=== PATIENT | male | born 1940 | race Caucasian/White ===

== ENCOUNTER → 2020-11-05 17:13 | Outpatient (CLI) | payer MEDICARE, SELFPAY ==
[2020-11-05 17:38] LABS: Basophils % 0.6 % (0.1-2.0); Eosinophils # 0.2 K/mm3 (0.0-0.4); Eosinophils % 4.6 % (0.1-12.0); Hematocrit 43.8 % (42.0-52.0); Hemoglobin 14.4 g/dL (14.1-18.0); Lymphocytes # 1.5 K/mm3 (0.7-4.5); Lymphocytes % 32.7 % (10-50); Mean Corpuscular HGB Conc 32.9 g/dL (31.8-35.4); Mean Corpuscular Hemoglobin 30.3 pg (27.0-31.2); Mean Corpuscular Volume 92.1 fl (80-94); Mean Platelet Volume 10.1 fl (7.4-10.4); Monocytes # 0.3 K/mm3 (0.1-1.0); Monocytes % 6.3 % (1.7-9.3); Neutrophils # 2.5 K/mm3 (1.8-7.8); Neutrophils % 55.8 % (37.0-80.0); Platelet Count 166 K/mm3 (142-424); Red Blood Count 4.75 M/mm3 (4.60-6.20); White Blood Count 4.5 K/mm3 (4.8-10.8)
[2020-11-05 17:47] LABS: Alanine Aminotransferase 38 U/L (12-78); Albumin Level 4.3 g/dl (3.5-5.0); Albumin/Globulin Ratio 1.4 (1.1-1.8); Alkaline Phosphatase 63 U/L (38-126); Anion Gap 10.3 mEq/L (5-15); Aspartate Amino Transferase 42 U/L (17-59); Bilirubin,Total 0.7 mg/dl (0.2-1.3); Blood Urea Nitrogen 18 mg/dl (9-20); Calcium 9.6 mg/dl (8.4-10.2); Carbon Dioxide 28 mmol/L (22.0-30.0); Chloride 101 mmol/L (98-107); Chol/HDL Ratio 3.2 (1-3.5); Cholesterol 146 mg/dl (140-200); Estimated Glomerular Filt Rate 82 ml/min (>60); GFR (African American) 99 ML/MIN (>60); Globulin 3.1 g/dL (1.3-3.2); Glucose 160 mg/dl (74-100); HDL Cholesterol 45 mg/dl (40-60); Potassium 4.3 mmoL/L (3.5-5.1); Sodium 135 mmol/L (136-145); Total Protein,Serum 7.4 g/dl (6.3-8.2); Triglycerides 140 mg/dl (30-150); VLDL Cholesterol 28 mg/dL (0-40)
[2020-11-05 17:58] LABS: Direct LDL Cholesterol 66.37 mg/dL (100-129)
[2020-11-05 18:06] LABS: T4 (Thyroxine) 6.7 ug/dl (5.53-11.0)
[2020-11-05 18:17] LABS: Thyroid Stimulating Hormone 2.57 uIU/mL (0.465-4.68)
[2020-11-05 21:47] LABS: Hemoglobin A1C 8.2 % (4.0-6.0)
[2020-11-07 11:29] LABS: Hep A Ab, IgM Negative (Negative); Hepatitis B Core Antibody IgM Negative (Negative); Hepatitis B Surface Antigen Negative (Negative)
[2020-11-07 12:51] LABS: Hepatitis C Antibody <0.1 s/co ratio (0.0-0.9)
== END ==
PROVIDERS: Visit Provider Family Medicine
DX: E07.9 Disorder of thyroid, unspecified (principal); E11.9 Type 2 dia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s; E78.5 Hyperlipidemia, unspecified; I10 Essential (primary) hypertension; Z20.5 Contact with and (suspected) exposure to viral hepatitis; Z85.46 Personal history of malignant neoplasm of prostate; Z79.84 Long term (current) use of oral hypoglycemic drugs; K74.60 Unspecified cirrhosis of liver
CPT/HCPCS: 80053; 80061; 80074; 83036; 84436; 84443; 85025

== ENCOUNTER → 2020-12-04 08:11 | Outpatient (CLI) | payer MEDICARE, SELFPAY ==
--- NOTE | 2020-12-04 08:16 | US_ITS ---
PROCEDURE: US ABDOMEN LIMITED CLINICAL INDICATION: CIRRHOSIS COMPARISON: No exams were available for comparison FINDINGS: PANCREAS: Pancreas is not well delineated due to overlying bowel gas. CT without and with contrast with pancreatic protocol may provide further evaluation if clinically desired. LIVER: There is heterogeneous echogenicity of the liver. There is appropriate direction of portal and hepatic blood flow. The portal vein is not dilated at 10 mm. There is mild hepatomegaly at 20 cm transverse. Cephalad to caudal measurement of the right hepatic lobe is 19 cm. RIGHT KIDNEY: Unremarkable. Normal size and echogenicity. No hydronephrosis GALLBLADDER: Gallbladder is slightly contracted with mildly thickened wall. No gallstones, pericholecystic fluid, or biliary dilatation is evident. IMPRESSION: 1. Appropriate direction of portal and hepatic blood flow. 2. Enlarged coarse heterogeneous appearance of the liver 3. Mildly thickened gallbladder wall. 4. The pancreas is not well delineated. Dictated by: Michael Evans MD 12/04/2020 17:12 Michael Evans MD in [place] 12/04/2020 17:12
[2020-12-04 09:43] LABS: Basophils # 0.1 K/mm3 (0-0.2); Basophils % 1.2 % (0.1-2.0); Eosinophils # 0.2 K/mm3 (0.0-0.4); Hematocrit 40.8 % (42.0-52.0); Hemoglobin 13.7 g/dL (14.1-18.0); Lymphocytes # 1.4 K/mm3 (0.7-4.5); Lymphocytes % 24.1 % (10-50); Mean Corpuscular HGB Conc 33.5 g/dL (31.8-35.4); Mean Corpuscular Hemoglobin 30.3 pg (27.0-31.2); Mean Corpuscular Volume 90.3 fl (80-94); Mean Platelet Volume 9.5 fl (7.4-10.4); Monocytes # 0.3 K/mm3 (0.1-1.0); Monocytes % 6.1 % (1.7-9.3); Neutrophils # 3.6 K/mm3 (1.8-7.8); Neutrophils % 64.6 % (37.0-80.0); Platelet Count 167 K/mm3 (142-424); Red Blood Count 4.51 M/mm3 (4.60-6.20); Red Cell Distribution Width 13.9 % (11.5-17.5); White Blood Count 5.6 K/mm3 (4.8-10.8)
[2020-12-04 10:01] LABS: INR 1.02 (0.9-1.1)
[2020-12-04 10:29] LABS: Alanine Aminotransferase 34 U/L (12-78); Albumin Level 4.1 g/dl (3.5-5.0); Albumin/Globulin Ratio 1.4 (1.1-1.8); Alkaline Phosphatase 50 U/L (38-126); Anion Gap 9.3 mEq/L (5-15); Aspartate Amino Transferase 34 U/L (17-59); Bilirubin,Total 0.8 mg/dl (0.2-1.3); Blood Urea Nitrogen 21 mg/dl (9-20); Calcium 9.2 mg/dl (8.4-10.2); Carbon Dioxide 30 mmol/L (22.0-30.0); Chloride 102 mmol/L (98-107); Estimated Glomerular Filt Rate 72 ml/min (>60); GFR (African American) 87 ML/MIN (>60); Globulin 2.9 g/dL (1.3-3.2); Glucose 140 mg/dl (74-100); Iron 79 ug/dL (49-181); Potassium 4.3 mmoL/L (3.5-5.1); Sodium 137 mmol/L (136-145)
[2020-12-04 10:42] LABS: Total Iron Binding Capacity 332 ug/dL (261-462)
[2020-12-04 11:04] LABS: Ferritin 89.2 ng/ml (17.9-464)
[2020-12-05 08:15] LABS: AFP, Tumor Marker 5.4 ng/mL (0.0-8.3)
[2020-12-06 02:09] LABS: ALT (SGPT) P5P 36 IU/L (0-55); AST (SGOT) P5P 28 IU/L (0-40); Alpha 2-Macroglobulins, Qn 263 mg/dL (110-276); Apolipoprotein A-1 <3 mg/dL (101-178); Bilirubin, Total 0.6 mg/dL (0.0-1.2); Cholesterol, Total 110 mg/dL (100-199); GGT 70 IU/L (0-65); Glucose 142 mg/dL (65-99); Haptoglobin 139 mg/dL (34-355); Steatosis Score 0.93 (0.00-0.30); Triglycerides 193 mg/dL (0-149)
== END ==
PROVIDERS: PCP Family Medicine; Visit Provider Nurse Practitioner Family
DX: K74.60 Unspecified cirrhosis of liver (principal)
CPT/HCPCS: 36415; 76705; 80053; 82105; 82728; 83540; 83550; 85025; 85610

== ENCOUNTER → 2020-12-09 09:18 | Outpatient (CLI) | payer MEDICARE, SELFPAY ==
[2020-12-09 09:52] LABS: Ammonia < 9 umol/L (9-30)
== END ==
PROVIDERS: Visit Provider Nurse Practitioner Family
DX: I10 Essential (primary) hypertension (principal); E07.9 Disorder of thyroid, unspecified
CPT/HCPCS: 82140

== ENCOUNTER 2021-01-01 10:54 | Emergency (ER) | payer MEDICARE, SELFPAY ==
[2021-01-01 11:06] VITALS: BP 125/63; PULSE 58; RESP 18; TEMP 37.1; O2SAT 96; BMI 38.0
[2021-01-01 11:17] VITALS: BMI 38.0
--- NOTE | 2021-01-01 11:18 | XR_ITS ---
PROCEDURE: XR HIP LT 2-3V W/PELVIS CLINICAL INDICATION: fall COMPARISON: No exams were available for comparison FINDINGS: No fracture or dislocation is evident. No significant degenerative change. No lytic or blastic change. Unremarkable soft tissues. IMPRESSION: No acute findings. Dictated by: Michael Evans MD 01/01/2021 12:52 Michael Evans MD in [facility] 01/01/2021 12:52
--- NOTE | 2021-01-01 11:18 | XR_ITS ---
PROCEDURE: XR CHEST PORTABLE CLINICAL HISTORY: fall Posttraumatic pain COMPARISON: No exams were available for comparison FINDINGS: The cardiomediastinal silhouette and pulmonary vascularity are within normal limits. The lungs are clear without infiltrates, suspicious nodules, or pleural effusions. No acute bony abnormalities. IMPRESSION: No acute findings. Dictated by: Michael Evans MD 01/01/2021 12:51 Michael Evans MD in [facility] 01/01/2021 12:51
[2021-01-01 11:30] VITALS: BP 132/79; PULSE 57; O2SAT 95
[2021-01-01 11:45] VITALS: PULSE 63; O2SAT 97
--- NOTE | 2021-01-01 11:48 | HMH.EDFALL ---
ED Disposition Clinical Impression: Shoulder contusion, Contusion of hip and thigh Disposition: Home, Self-Care Condition on Discharge: Good Additional Instructions: tylenol 500 mg every 6 hours as needed for pain. Follow-up with primary care physician. Prolonged standing and walking for the next 3 days See your primary care physician in 2 days. Prescriptions: Nabumetone 500 mg PO TID 10 Days #30 tab Transmission Status: Pending to Primary [facility] Referrals: Onel Boudreaux MD [Primary Care Provider] - - Critical Care Critical Care Time: No Attestation: On 01/01/21, the high probability of a clinically significant, sudden or life threatening deterioration of the following system(s) required my full and direct attention, intervention and personal management. The time I documented below is in addition to time spent performing reported procedures but includes the following listed in this critical care notation. Medical Decision Making - Medical Records MR Comment: X-ray was done to the chest ribs and left hip all were normal. Rectal exam was completely negative. He denies any chest pain. - Dom Inquiry Pt receiving controlled substance: No Dom was queried for this patient: No Vital Signs: 01/01/21 11:06 01/01/21 11:30 01/01/21 11:45 Temperature 98.7 F Temperature Source Oral Pulse Rate 57 L 63 Pulse Rate [Right] 58 L Respiratory Rate 18 Blood Pressure 132/79 Blood Pressure [Right Arm] 125/63 Blood Pressure Mean 90 Blood Pressure Mean [Right Arm] 83 Blood Pressure Source [Right Arm] Automatic Cuff Blood Pressure Position [Right Arm] Sitting 02 Sat by Pulse Oximetry 96 95 97 Oxygen Delivery Method Room Air Orders (Tests/Meds): ED MEDICATIONS Discontinued Medications Generic Name Dose Route Start Last Admin Trade Name Freq PRN Reason Stop Dose Admin Acetaminophen 500 mg 01/01/21 11:55 01/01/21 11:59 Acetaminophen 500mg Tab PO 01/01/21 11:56 500 mg ONCE ONE Administration Naproxen 500 mg 01/01/21 11:55 01/01/21 11:59 Naproxen 500mg Tablet PO 01/01/21 11:56 500 mg ONCE STA Administration ORDERS Category Date Time Status XR chest portable Stat Exams 01/01/21 11:18 Taken XR hip LT 2-3V w/pelvis Stat Exams 01/01/21 11:18 Taken Fall HPI - General Chief Complaint: Fall Stated Complaint: ao at 0900 possible left broken ribs Time Seen by Provider: 01/01/21 11:30 Mode of Arrival: Ambulatory Source of Information: Patient Limitations: Physical Limitations Description of Symptoms (Recalled from ER Triage Doc. by RN): pt fell approximately 3 feet off of scaffolding landing onto left side of body. denies headstrikes, denies LOC. c/o left sided rib & hip pain. - History of Present Illness HPI Narrative: This 80-year-old male who fell on the left side of his body and is complaining of left rib pain and left hip pain. No chest pain. No shortness of breath. No head injuries or headache. No change in mental status. He denies any abdominal pain. Denies any chest pain. he has Stents in his heart several years ago. MD complaint: fall Onset (ago): hour(s) Fall from: standing Fall witnessed: yes, by family Place fall occurred: home Loss of consciousness: none Prolonged down time: no Symptoms prior to fall: none Context: tripped/slipped Location of injury - extremities: Left: shoulder, thigh Severity: mild Severity scale (1-10): 2 Associated symptoms (after fall): denies - Related Data Home Medications Medication Instructions Recorded Confirmed furosemide 20 mg tablet 20 mg PO DAILY 11/05/20 01/01/21 glipizide 10 mg tablet 10 mg PO DAILY 11/05/20 01/01/21 lactulose 10 gram oral packet 30 g PO DAILY each 11/05/20 01/01/21 levothyroxine 25 mcg capsule 25 mcg PO DAILY 11/05/20 01/01/21 lisinopril 5 mg tablet 5 mg PO DAILY 11/05/20 01/01/21 pantoprazole 40 mg tablet,delayed 40 mg PO BID tab 11/05/20 01/01/21 release At
[2021-01-01 12:20] VITALS: BP 119/72; PULSE 62; RESP 18; TEMP 36.3; O2SAT 96
== END 2021-01-01 12:22 | disposition home or self-care (01) ==
PROVIDERS: Emergency Provider Internal Medicine; PCP Family Medicine
DX: S70.02XA Contusion of left hip, initial encounter (principal); S40.012A Contusion of left shoulder, initial encounter; W17.89XA Other fall from one level to another, initial encounter; Y92.89 Other specified places as the place of occurrence of the external cause; I10 Essential (primary) hypertension; E78.5 Hyperlipidemia, unspecified; K21.9 Gastro-esophageal reflux disease without esophagitis; E03.9 Hypothyroidism, unspecified; E11.9 Type 2 dia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s
CPT/HCPCS: 71045; 73502; 99281; 99282

== ENCOUNTER → 2021-01-10 09:07 | Outpatient (CLI) | payer MEDICARE, SELFPAY ==
--- NOTE | 2021-01-10 09:14 | XR_ITS ---
PROCEDURE: XR SCAPULA LT CLINICAL INDICATION: pain COMPARISON: No exams were available for comparison FINDINGS: No scapular fracture identified. There are mild degenerative changes of the AC joint. Fractures of the left 5th 6th and 7th ribs are noted as described in the rib report. IMPRESSION: Negative scapula. Left-sided rib fractures Dictated by: Michael Evans MD 01/10/2021 09:50 Michael Evans MD in [facility] 01/10/2021 09:50
--- NOTE | 2021-01-10 09:14 | XR_ITS ---
PROCEDURE: XR CHEST 2V CLINICAL HISTORY: pain COMPARISON: CR XR CHEST PORTABLE from 01/01/2021 CR XR RIBS LT 2V from 01/10/2021 FINDINGS: Borderline cardiomegaly. Coronary artery stent noted on the left. No CHF. There is a small left pleural effusion. Mild pleural thickening noted in the right hemithorax laterally. Multiple views of the left ribs are obtained demonstrating minimally displaced fracture of the left 5th and 7th ribs with a nondisplaced fracture of the left 6th rib. No evidence of pneumothorax. IMPRESSION: Left 5th 6th and 7th rib fractures with small left-sided pleural effusion Dictated by: Michael Evans MD 01/10/2021 09:45 Michael Evans MD in [facility] 01/10/2021 09:45
== END ==
PROVIDERS: PCP Family Medicine; Visit Provider Family Medicine
DX: Z09 Encounter for follow-up examination after completed treatment for conditions other than malignant neoplasm (principal); R07.81 Pleurodynia; M79.89 Other specified soft tissue disorders; R60.0 Localized edema
CPT/HCPCS: 71046; 71100; 73010

== ENCOUNTER → 2021-01-24 14:00 | Outpatient (CLI) | payer MEDICARE, SELFPAY ==
[2021-01-24 14:24] LABS: Basophils # 0.1 K/mm3 (0-0.2); Basophils % 1.1 % (0.1-2.0); Eosinophils # 0.2 K/mm3 (0.0-0.4); Hematocrit 39.9 % (42.0-52.0); Hemoglobin 13.3 g/dL (14.1-18.0); Lymphocytes # 1.4 K/mm3 (0.7-4.5); Lymphocytes % 29.4 % (10-50); Mean Corpuscular HGB Conc 33.4 g/dL (31.8-35.4); Mean Corpuscular Hemoglobin 30.4 pg (27.0-31.2); Mean Corpuscular Volume 91.3 fl (80-94); Mean Platelet Volume 10.2 fl (7.4-10.4); Monocytes # 0.3 K/mm3 (0.1-1.0); Monocytes % 6.4 % (1.7-9.3); Neutrophils # 2.7 K/mm3 (1.8-7.8); Neutrophils % 59.1 % (37.0-80.0); Platelet Count 190 K/mm3 (142-424); Red Blood Count 4.38 M/mm3 (4.60-6.20); Red Cell Distribution Width 14.2 % (11.5-17.5); White Blood Count 4.6 K/mm3 (4.8-10.8)
[2021-01-24 15:24] LABS: Hemoglobin A1C 6.4 % (4.0-6.0)
[2021-01-24 18:30] LABS: Alanine Aminotransferase 38 U/L (12-78); Albumin/Globulin Ratio 1.3 (1.1-1.8); Alkaline Phosphatase 83 U/L (38-126); Aspartate Amino Transferase 42 U/L (17-59); Bilirubin,Total 0.6 mg/dl (0.2-1.3); Blood Urea Nitrogen 23 mg/dl (9-20); Calcium 9.1 mg/dl (8.4-10.2); Carbon Dioxide 33 mmol/L (22.0-30.0); Chloride 98 mmol/L (98-107); Chol/HDL Ratio 2.8 (1-3.5); Cholesterol 114 mg/dl (140-200); Estimated Glomerular Filt Rate 65 ml/min (>60); GFR (African American) 78 ML/MIN (>60); Globulin 3.1 g/dL (1.3-3.2); Glucose 111 mg/dl (74-100); HDL Cholesterol 41 mg/dl (40-60); Sodium 140 mmol/L (136-145); Total Protein,Serum 7.1 g/dl (6.3-8.2); Triglycerides 123 mg/dl (30-150); VLDL Cholesterol 25 mg/dL (0-40)
[2021-01-24 19:01] LABS: Prostate Specific Ag Screen < 0.1 ng/ml (0.0-4.0)
== END ==
PROVIDERS: Visit Provider Family Medicine
DX: E11.9 Type 2 dia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s (principal); R60.9 Edema, unspecified; E78.5 Hyperlipidemia, unspecified; Z12.5 Encounter for screening for malignant neoplasm of prostate; I10 Essential (primary) hypertension; Z79.84 Long term (current) use of oral hypoglycemic drugs
CPT/HCPCS: 80053; 80061; 83036; 85025; G0103

== ENCOUNTER → 2021-04-18 12:19 | Outpatient (CLI) | payer MEDICARE, SELFPAY ==
[2021-04-18 12:41] LABS: Ammonia < 9 umol/L (9-30)
[2021-04-18 14:15] LABS: Alanine Aminotransferase 36 U/L (12-78); Albumin/Globulin Ratio 1.3 (1.1-1.8); Alkaline Phosphatase 50 U/L (38-126); Aspartate Amino Transferase 46 U/L (17-59); Bilirubin,Total 0.4 mg/dl (0.2-1.3); Blood Urea Nitrogen 19 mg/dl (9-20); Calcium 9.4 mg/dl (8.4-10.2); Carbon Dioxide 30 mmol/L (22.0-30.0); Chloride 102 mmol/L (98-107); Estimated Glomerular Filt Rate 82 ml/min (>60); GFR (African American) 99 ML/MIN (>60); Glucose 109 mg/dl (74-100); Sodium 141 mmol/L (136-145)
== END ==
PROVIDERS: Visit Provider Family Medicine
DX: E07.9 Disorder of thyroid, unspecified (principal); E11.9 Type 2 dia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s; E78.5 Hyperlipidemia, unspecified; I10 Essential (primary) hypertension; K74.60 Unspecified cirrhosis of liver; R60.9 Edema, unspecified; Z85.46 Personal history of malignant neoplasm of prostate; Z79.84 Long term (current) use of oral hypoglycemic drugs
CPT/HCPCS: 36415; 80053; 82140

== ENCOUNTER → 2021-08-22 08:42 | Outpatient (CLI) | payer MEDICARE, SELFPAY ==
--- NOTE | 2021-08-22 08:51 | US_ITS ---
FINAL REPORT CLINICAL HISTORY: CIRRHOSIS,HEPATIC ENCEPHALOPATHY,H/O ALCOHOL ABUSE FINDINGS: RIGHT UPPER QUADRANT ULTRASOUND: Ultrasound images of right upper quadrant were obtained. Limited images of the pancreas are obscured by bowel gas. There is coarsening hepatic echotexture which would be consistent with history of cirrhosis. There is mild irregularity of the liver contour. Gallbladder sludge is identified. Portal vein has normal directional flow. The common duct measures 4 mm. The right kidney is normal measuring 11.5 cm. IMPRESSION: Gallbladder sludge. Cirrhosis. Reviewed, Interpreted and Dictated by Manjit Champion III, MD Transcribed by Estella Pineda Authenticated by Manjit Champion III, MD on 08/22/2021 10:09:36 AM [facility]
== END ==
PROVIDERS: PCP Family Medicine; Visit Provider Nurse Practitioner Family
DX: K74.60 Unspecified cirrhosis of liver (principal); K75.81 Nonalcoholic steatohepatitis (NASH); K72.90 Hepatic failure, unspecified without coma; F10.11 Alcohol abuse, in remission
CPT/HCPCS: 76705

== ENCOUNTER → 2021-08-28 12:32 | Outpatient (CLI) | payer MEDICARE, SELFPAY ==
[2021-08-28 13:10] LABS: Basophils # 0.1 K/mm3 (0-0.2); Basophils % 1.1 % (0.1-2.0); Eosinophils # 0.2 K/mm3 (0.0-0.4); Eosinophils % 3.9 % (0.1-12.0); Hematocrit 39.7 % (42.0-52.0); Hemoglobin 13.2 g/dL (14.1-18.0); Lymphocytes # 1.5 K/mm3 (0.7-4.5); Lymphocytes % 26.9 % (10-50); Mean Corpuscular HGB Conc 33.3 g/dL (31.8-35.4); Mean Corpuscular Hemoglobin 30.6 pg (27.0-31.2); Mean Platelet Volume 9.5 fl (7.4-10.4); Monocytes # 0.3 K/mm3 (0.1-1.0); Monocytes % 4.8 % (1.7-9.3); Neutrophils # 3.5 K/mm3 (1.8-7.8); Neutrophils % 63.3 % (37.0-80.0); Platelet Count 185 K/mm3 (142-424); Red Blood Count 4.32 M/mm3 (4.60-6.20); Red Cell Distribution Width 13.5 % (11.5-17.5); White Blood Count 5.5 K/mm3 (4.8-10.8)
[2021-08-28 13:14] LABS: Ammonia < 9 umol/L (9-30)
[2021-08-28 13:15] LABS: INR 1.09 (0.9-1.1); Prothrombin Time 12.2 seconds (10.1-12.5)
[2021-08-28 13:24] LABS: Chloride 96 mmol/L (98-107); Sodium 135 mmol/L (136-145)
[2021-08-28 13:26] LABS: Blood Urea Nitrogen 24 mg/dl (9-20); Estimated Glomerular Filt Rate 65 ml/min (>60); GFR (African American) 78 ML/MIN (>60)
[2021-08-28 13:27] LABS: Alanine Aminotransferase 44 U/L (12-78); Albumin/Globulin Ratio 1.4 (1.1-1.8); Alkaline Phosphatase 64 U/L (38-126); Aspartate Amino Transferase 48 U/L (17-59); Bilirubin,Total 0.5 mg/dl (0.2-1.3); Calcium 8.4 mg/dl (8.4-10.2); Carbon Dioxide 31 mmol/L (22.0-30.0); Globulin 2.8 g/dL (1.3-3.2); Glucose 151 mg/dl (74-100); Iron 66 ug/dL (49-181); Total Protein,Serum 6.8 g/dl (6.3-8.2)
[2021-08-28 13:36] LABS: Total Iron Binding Capacity 380 ug/dL (261-462)
[2021-08-28 14:02] LABS: Ferritin 61.9 ng/ml (17.9-464)
[2021-08-29 11:34] LABS: AFP, Tumor Marker 5.1 ng/mL (0.0-8.3)
== END ==
PROVIDERS: Visit Provider Nurse Practitioner Family
DX: K75.81 Nonalcoholic steatohepatitis (NASH) (principal); K74.60 Unspecified cirrhosis of liver; K72.90 Hepatic failure, unspecified without coma; K76.6 Portal hypertension; F10.11 Alcohol abuse, in remission
CPT/HCPCS: 36415; 80053; 82105; 82140; 82728; 83540; 83550; 85025; 85610

== ENCOUNTER → 2021-12-23 12:21 | Outpatient (CLI) | payer MEDICARE, SELFPAY ==
[2021-12-23 13:17] LABS: Ammonia 11 umol/L (9-30)
[2021-12-23 13:27] LABS: Chloride 106 mmol/L (98-107); Potassium 4.7 mmoL/L (3.5-5.1); Sodium 138 mmol/L (136-145)
[2021-12-23 13:29] LABS: Blood Urea Nitrogen 18 mg/dl (9-20); Estimated Glomerular Filt Rate 81 ml/min (>60); GFR (African American) 98 ML/MIN (>60)
[2021-12-23 13:30] LABS: Alanine Aminotransferase 37 U/L (12-78); Albumin Level 3.7 g/dl (3.5-5.0); Albumin/Globulin Ratio 1.2 (1.1-1.8); Alkaline Phosphatase 54 U/L (38-126); Aspartate Amino Transferase 42 U/L (17-59); Bilirubin,Total 0.6 mg/dl (0.2-1.3); Cholesterol 122 mg/dl (140-200); Glucose 187 mg/dl (74-100); Total Protein,Serum 6.7 g/dl (6.3-8.2); Triglycerides 144 mg/dl (30-150); VLDL Cholesterol 29 mg/dL (0-40)
[2021-12-23 13:31] LABS: Calcium 9.4 mg/dl (8.4-10.2); Chol/HDL Ratio 3.4 (1-3.5); HDL Cholesterol 36 mg/dl (40-60)
[2021-12-23 13:35] LABS: Hemoglobin A1C 7.4 % (4.0-6.0)
[2021-12-23 13:41] LABS: Direct LDL Cholesterol 52.22 mg/dL (100-129)
[2021-12-23 14:01] LABS: Thyroid Stimulating Hormone 2.05 uIU/mL (0.465-4.68)
[2021-12-23 15:22] LABS: Anion Gap 8.7 mEq/L (5-15); Carbon Dioxide 28 mmol/L (22.0-30.0)
== END ==
PROVIDERS: PCP Family Medicine; Visit Provider Family Medicine
DX: E11.9 Type 2 dia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s (principal); E78.5 Hyperlipidemia, unspecified; R60.9 Edema, unspecified; Z79.84 Long term (current) use of oral hypoglycemic drugs
CPT/HCPCS: 36415; 80053; 80061; 82140; 83036; 84443

== ENCOUNTER → 2022-02-16 07:43 | Outpatient (CLI) | payer MEDICARE, SELFPAY ==
--- NOTE | 2022-02-16 07:52 | US_ITS ---
FINAL REPORT CLINICAL HISTORY: CIRRHOSIS,PORTAL HYPERTENSION,H/O ALCOHOL ABUSE FINDINGS: Sonographic images of the right upper quadrant were obtained. The pancreas is partially obscured. There is coarse hepatic echotexture which may be due to cirrhosis. The portal vein has normal directional flow. The hepatic veins are patent. There is sludge in the gallbladder with no evidence of stones. There is no evidence of biliary ductal dilatation. The common duct measures 4mm. Limited images of the right kidney are unremarkable. IMPRESSION: Cirrhosis. Sludge in the gallbladder with no evidence of stones. Reviewed, Interpreted and Dictated by Manjit Champion III, MD Transcribed by Shameka Thurman Authenticated and [facility]
== END ==
PROVIDERS: PCP Family Medicine; Referring Provider Nurse Practitioner Family; Visit Provider Nurse Practitioner Family
DX: F10.11 Alcohol abuse, in remission (principal); K75.81 Nonalcoholic steatohepatitis (NASH); K74.60 Unspecified cirrhosis of liver; K72.90 Hepatic failure, unspecified without coma; K76.6 Portal hypertension
CPT/HCPCS: 76705

== ENCOUNTER → 2022-02-26 12:36 | Outpatient (CLI) | payer MEDICARE, SELFPAY ==
[2022-02-26 13:04] LABS: Basophils % 0.9 % (0.1-2.0); Eosinophils # 0.2 K/mm3 (0.0-0.4); Eosinophils % 4.6 % (0.1-12.0); Hematocrit 37.4 % (42.0-52.0); Hemoglobin 11.5 g/dL (14.1-18.0); Lymphocytes # 1.1 K/mm3 (0.7-4.5); Mean Corpuscular HGB Conc 30.9 g/dL (31.8-35.4); Mean Corpuscular Hemoglobin 29.7 pg (27.0-31.2); Mean Corpuscular Volume 96.2 fl (80-94); Mean Platelet Volume 10.6 fl (7.4-10.4); Monocytes # 0.3 K/mm3 (0.1-1.0); Monocytes % 5.8 % (1.7-9.3); Neutrophils % 64.7 % (37.0-80.0); Platelet Count 169 K/mm3 (142-424); Red Blood Count 3.88 M/mm3 (4.60-6.20); Red Cell Distribution Width 14.6 % (11.5-17.5); White Blood Count 4.6 K/mm3 (4.8-10.8)
[2022-02-26 13:11] LABS: Ammonia 33 umol/L (9-30)
[2022-02-26 13:40] LABS: INR 1.07 (0.9-1.1)
[2022-02-26 13:42] LABS: Alanine Aminotransferase 41 U/L (12-78); Albumin Level 3.4 g/dl (3.5-5.0); Albumin/Globulin Ratio 1.2 (1.1-1.8); Alkaline Phosphatase 60 U/L (38-126); Aspartate Amino Transferase 46 U/L (17-59); Blood Urea Nitrogen 12 mg/dl (9-20); Calcium 8.7 mg/dl (8.4-10.2); Carbon Dioxide 25 mmol/L (22.0-30.0); Chloride 106 mmol/L (98-107); Estimated Glomerular Filt Rate 93 ml/min (>60); GFR (African American) 113 ML/MIN (>60); Globulin 2.9 g/dL (1.3-3.2); Glucose 224 mg/dl (74-100); Sodium 137 mmol/L (136-145); Total Protein,Serum 6.3 g/dl (6.3-8.2)
[2022-02-26 13:43] LABS: Bilirubin,Total < 0.1 mg/dl (0.2-1.3)
[2022-02-26 14:48] LABS: Iron 38 ug/dL (49-181)
[2022-02-26 15:24] LABS: Ferritin 38.2 ng/ml (17.9-464)
[2022-02-27 11:16] LABS: AFP, Tumor Marker 5.2 ng/mL (0.0-8.4)
[2022-03-02 08:41] LABS: Total Iron Binding Capacity 342 ug/dL (261-462)
== END ==
PROVIDERS: PCP Family Medicine; Visit Provider Nurse Practitioner Family
DX: K75.81 Nonalcoholic steatohepatitis (NASH) (principal); K74.60 Unspecified cirrhosis of liver; K76.6 Portal hypertension; F10.11 Alcohol abuse, in remission; M25.471 Effusion, right ankle
CPT/HCPCS: 36415; 80053; 82105; 82140; 82728; 83540; 83550; 85025; 85610

== ENCOUNTER → 2022-04-23 11:26 | Outpatient (CLI) | payer MEDICARE, SELFPAY ==
[2022-04-24 11:29] LABS: Occult Blood,Stool Positive (Negative)
[2022-04-24 11:29] LABS: Occult Blood,Stool Negative (Negative)
== END ==
PROVIDERS: PCP Family Medicine; Visit Provider Internal Medicine Gastroenterology
DX: D64.9 Anemia, unspecified (principal)
CPT/HCPCS: 82272; G0328

== ENCOUNTER → 2022-04-24 10:18 | Outpatient (CLI) | payer MEDICARE, SELFPAY ==
[2022-04-24 11:29] LABS: Occult Blood,Stool Negative (Negative)
== END ==
PROVIDERS: Internal Medicine Gastroenterology; PCP Family Medicine; Visit Provider Family Medicine
DX: D64.9 Anemia, unspecified (principal)
CPT/HCPCS: 82272; G0328

== ENCOUNTER → 2022-06-23 10:23 | Outpatient (CLI) | payer MEDICARE, SELFPAY ==
[2022-06-23 14:32] LABS: Alanine Aminotransferase 81 U/L (12-78); Albumin Level 3.8 g/dl (3.5-5.0); Albumin/Globulin Ratio 1.2 (1.1-1.8); Alkaline Phosphatase 69 U/L (38-126); Anion Gap 10.4 mEq/L (5-15); Aspartate Amino Transferase 56 U/L (17-59); Bilirubin,Total 0.5 mg/dl (0.2-1.3); Blood Urea Nitrogen 23 mg/dl (9-20); Calcium 9.9 mg/dl (8.4-10.2); Carbon Dioxide 31 mmol/L (22.0-30.0); Chloride 98 mmol/L (98-107); Estimated Glomerular Filt Rate 93 ml/min (>60); GFR (African American) 113 ML/MIN (>60); Globulin 3.1 g/dL (1.3-3.2); Glucose 126 mg/dl (74-100); Potassium 4.4 mmoL/L (3.5-5.1); Sodium 135 mmol/L (136-145); Total Protein,Serum 6.9 g/dl (6.3-8.2)
[2022-06-23 15:02] LABS: Thyroid Stimulating Hormone 3.25 uIU/mL (0.465-4.68)
== END ==
PROVIDERS: PCP Family Medicine; Visit Provider Family Medicine
DX: I10 Essential (primary) hypertension (principal); E11.9 Type 2 dia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s; Z79.84 Long term (current) use of oral hypoglycemic drugs
CPT/HCPCS: 80053; 84443

== ENCOUNTER 2022-07-14 05:35 | Emergency (ER) | payer MEDICARE, SELFPAY ==
[2022-07-14 05:36] VITALS: BP 152/72; PULSE 88; RESP 20; TEMP 36.7; O2SAT 97; BMI 36.1
[2022-07-14 05:49] VITALS: BMI 36.1
[2022-07-14 05:57] LABS: Microscopic, Urine URINE MICROSCOPIC (MICROSCOPIC)
[2022-07-14 06:06] LABS: Alanine Aminotransferase 44 U/L (12-78); Albumin Level 3.9 g/dl (3.5-5.0); Alkaline Phosphatase 88 U/L (38-126); Amylase 47 U/L (30-110); Aspartate Amino Transferase 52 U/L (17-59); Bilirubin,Total 0.6 mg/dl (0.2-1.3); Blood Urea Nitrogen 12 mg/dl (9-20); Calcium 8.7 mg/dl (8.4-10.2); Carbon Dioxide 31 mmol/L (22.0-30.0); Chloride 100 mmol/L (98-107); Creatinine Clearance Estimated 71 mL/min (50-200); Estimated Glomerular Filt Rate 81 ml/min (>60); GFR (African American) 98 ML/MIN (>60); Glucose 193 mg/dl (74-100); Lipase 87 U/L (23-300); Sodium 137 mmol/L (136-145); Total Protein,Serum 7.9 g/dl (6.3-8.2)
[2022-07-14 06:12] LABS: Basophils # 0.1 K/mm3 (0-0.2); Basophils % 1.4 % (0.1-2.0); C-Reactive Protein 10.3 mg/L (0-4); Eosinophils # 0.2 K/mm3 (0.0-0.4); Eosinophils % 3.6 % (0.1-12.0); Hematocrit 41.2 % (42.0-52.0); Hemoglobin 12.6 g/dL (14.1-18.0); Lymphocytes # 1.3 K/mm3 (0.7-4.5); Lymphocytes % 19.6 % (10-50); Mean Corpuscular HGB Conc 30.5 g/dL (31.8-35.4); Mean Corpuscular Hemoglobin 27.9 pg (27.0-31.2); Mean Corpuscular Volume 91.6 fl (80-94); Mean Platelet Volume 9.2 fl (7.4-10.4); Monocytes # 0.4 K/mm3 (0.1-1.0); Monocytes % 5.7 % (1.7-9.3); Neutrophils # 4.5 K/mm3 (1.8-7.8); Neutrophils % 69.6 % (37.0-80.0); Platelet Count 342 K/mm3 (142-424); Red Cell Distribution Width 15.2 % (11.5-17.5); White Blood Count 6.4 K/mm3 (4.8-10.8)
[2022-07-14 06:18] LABS: NT Pro Brain Natriuretic Pep. 122 pg/mL (0-450)
[2022-07-14 06:21] LABS: Appearance,Urine CLEAR (Clear); Bilirubin,Urine Negative (Negative); Blood, Urine TRACE-I (Negative); Color,Urine YELLOW (Yellow); Glucose,Urine (UA) Negative (Negative); Ketones,Urine Negative (Negative); Leukocyte Esterase,Urine Negative (Negative); Nitrate,Urine Negative (Negative); Protein,Urine Negative (Negative); Urobilinogen,Urine 0.2 EU/dl (0.2)
--- NOTE | 2022-07-14 06:25 | CT_ITS ---
FINAL REPORT TECHNIQUE: Axial CT images were performed from the lung bases through the pubic symphysis. Coronal reformats were submitted and reviewed. This study was performed with techniques to keep radiation doses as low as reasonably achievable (ALARA). Individualized dose reduction techniques using automated exposure control or adjustment of mA and/or kV according to the patient's size were employed. CLINICAL HISTORY: r/o stones, R flank pain, hematuria FINDINGS: Abdomen: There is mild gynecomastia. There is mild bibasilar atelectasis. The liver has an irregular contour consistent with cirrhosis. There is borderline splenomegaly at 12.4 cm. The pancreas is unremarkable. There are several enlarged portal and portacaval lymph nodes that are nonspecific and favored to be reactive. There are no adrenal masses. There is no nephrolithiasis. There is no hydronephrosis. Pelvis: The appendix is not identified. There are no distal ureteral stones. There is bladder wall thickening which is likely inflammatory. There is a small amount of pelvic ascites. There are bilateral fat containing inguinal hernias. A moderate amount of retained stool is present. IMPRESSION: No nephrolithiasis or hydronephrosis. Cirrhosis with borderline splenomegaly. Small amount of pelvic ascites. Moderate retained stool. Reviewed, Interpreted and Dictated by Manjit Champion III, MD Transcribed by Manpreet Stubbs Authenticated and [facility]
[2022-07-14 06:26] LABS: Procalcitonin 0.103 ng/mL (0.0-2.0)
[2022-07-14 06:30] VITALS: BP 159/81; PULSE 67; RESP 20; O2SAT 96
[2022-07-14 06:47] LABS: Bacteria,Urine Trace /lpf; Squamous Epithelial Cell,Urine Occasional #/hpf (0-5)
[2022-07-14 06:55] LABS: Erythrocyte Sedimentation Rate 29 mm/hr (0-20)
[2022-07-14 07:00] VITALS: BP 158/82; PULSE 71; RESP 20; O2SAT 97
[2022-07-14 07:30] VITALS: BP 160/81; PULSE 72; O2SAT 96
--- NOTE | 2022-07-14 07:36 | PC.NURSE ---
ammonia collected and sent to the lab at this time. no needs by pt
[2022-07-14 08:00] VITALS: BP 160/80; PULSE 64; RESP 18; O2SAT 95
[2022-07-14 08:01] LABS: Ammonia < 9 umol/L (9-30)
--- NOTE | 2022-07-14 09:08 | HMH.EDABDPAI ---
Discharge Plan Disposition Patient Disposition: Home, Self-Care Chief Complaint: Abdominal Pain Prescriptions Prescriptions: No Action pioglitazone [Actos] 30 mg tablet 30 mg PO DAILY Qty: 90 3RF atorvastatin 40 mg tablet See Rx Instructions .ROUTE .COMPLEX Qty: 90 3RF Dose Instruction: TAKE 1 TABLET BY MOUTH EVERY DAY Rx Instructions: TAKE 1 TABLET BY MOUTH EVERY DAY glipizide 10 mg tablet 10 mg PO DAILY Qty: 90 2RF lisinopril 5 mg tablet 5 mg PO DAILY Qty: 90 2RF nadolol 20 mg tablet 20 mg PO DAILY Qty: 90 2RF omeprazole 40 mg capsule,delayed release(DR/EC) 40 mg PO BID Qty: 60 0RF potassium chloride 20 mEq tablet extended release 20 meq PO DAILY Qty: 90 2RF lactulose 10 gram packet 30 g PO DAILY Qty: 90 2RF levothyroxine [Synthroid] 25 mcg tablet 25 mcg PO DAILY Qty: 90 3RF (DME) Accu-Chek Jess Plus test strp Strip See Rx Instructions .ROUTE .COMPLEX Qty: 300 0RF Dose Instruction: USE DIRECTED Rx Instructions: USE DIRECTED torsemide 20 mg tablet 20 mg PO DAILY Qty: 90 3RF Rx Instructions: instead of lasix Referrals Follow up/Referrals: Onel Boudreaux MD [Primary Care Provider] - See instructions Clinical Impressions Clinical Impression: Acute right flank pain, Cirrhosis Instructions Patient Instructions: DI for Acute Abdominal Pain Discharge ED Provider: Bonoe Calhoun Abdominal Pain HPI General Chief Complaint: Abdominal Pain Stated Complaint: abdominal pain Time Seen by Provider: 07/14/22 09:08 Mode of Arrival: Family Vehicle Source of Information: Patient, Spouse and Medical Record Limitations: No Limitations Description of Symptoms (Recalled from ER Triage Doc. by RN): Pt c/o R flank pain that began @ noon yesterday (07/13). He reports the pain is worse as he is moving. He denies urinary issues. He has known liver cirrhosis. Pt states I think I have a kidney stone . He denies any hx of stones. History of Present Illness HPI narrative: rt flank pain over the last 2 days - no fever or rash complaint: flank pain Onset (ago): day(s) Consistency: intermittent Location: R flank Severity: moderate Associated symptoms: denies other symptoms Related Data Previous Rx's Medication Instructions Recorded lactulose 10 gram oral packet 30 g PO DAILY Supplement #90 ea 03/05/21 potassium chloride 20 mEq 20 meq PO DAILY . #90 tabs 03/05/21 tablet,extended release atorvastatin 40 mg tablet See Rx Instructions .Route 04/18/21 .COMPLEX #90 tabs glipizide 10 mg tablet 10 mg PO DAILY Diabetes #90 tabs 04/18/21 lisinopril 5 mg tablet 5 mg PO DAILY Hypertension #90 tabs 04/18/21 levothyroxine 25 mcg tablet 25 mcg PO DAILY #90 tabs 04/21/21 (Synthroid) blood sugar diagnostic (Accu-Chek #300 strips 06/11/21 Jess Plus test strips) pioglitazone 30 mg tablet (Actos) 30 mg PO DAILY #90 tabs 12/23/21 torsemide 20 mg tablet 20 mg PO DAILY #90 tabs 12/31/21 nadolol 20 mg tablet 20 mg PO DAILY Hypertension #90 06/23/22 tabs omeprazole 40 mg capsule,delayed 40 mg PO BID #60 caps 06/23/22 release Allergies Allergy/AdvReac Type Severity Reaction Status Date / Time sitagliptin [From ] Allergy yeast Verified 06/23/22 09:[address] [facility] Disclaimer: The information contained in this section may have been updated after the patient was seen, as this information can be updated by other users. Social History Smoking Status: Former smoker alcohol intake: former substance use type: denies use current occupational status: retired Travel in the last 8 weeks: None ROS Obtained: Yes All systems reviewed & no additional complaints except as documented Physical Exam General General appearance: alert Head Head exam: normocephalic Eye Eye exam: Present PERRL and EOMI; Absent scleral icterus ENT ENT exam: Present
[2022-07-14 09:30] VITALS: BP 160/80; PULSE 70; RESP 18; TEMP 36.7; O2SAT 96
== END 2022-07-14 09:31 | disposition home or self-care (01) ==
PROVIDERS: Emergency Provider Emergency Medicine; PCP Family Medicine
DX: R10.9 Unspecified abdominal pain (principal); K74.60 Unspecified cirrhosis of liver; Z87.891 Personal history of nicotine dependence
CPT/HCPCS: 74176; 80053; 81001; 82140; 82150; 83690; 83880; 84145; 85025; 85651; 86140; 96361; 96374; 99285

== ENCOUNTER → 2022-08-31 08:15 | Outpatient (CLI) | payer MEDICARE, SELFPAY ==
--- NOTE | 2022-08-31 08:28 | US_ITS ---
FINAL REPORT TECHNIQUE: Sonographic images of the right upper quadrant were obtained. CLINICAL HISTORY: MANSFIELD, CIRRHOSIS, PORTAL HYPERTENSION, EDEMA COMPARISON: 02/16/2022 FINDINGS: PANCREAS: The tail is obscured the head is normal. LIVER: The liver is coarsened in echotexture. No focal hepatic lesion. No intrahepatic biliary ductal dilatation. GALLBLADDER: No gallstones. No gallbladder wall thickening or pericholecystic fluid. COMMON DUCT: 5 mm. Normal for age. RIGHT KIDNEY: The right kidney measures 10.1 cm. There is no hydronephrosis, mass, or stone. FREE FLUID: None. IMPRESSION: Coarsened echotexture of the liver, cirrhosis is not excluded. Reviewed, Interpreted and Dictated by Angelica Drew MD Transcribed by Tisha Do Authenticated and [facility]
[2022-08-31 10:05] LABS: Basophils # 0.1 K/mm3 (0-0.2); Basophils % 1.4 % (0.1-2.0); Eosinophils # 0.2 K/mm3 (0.0-0.4); Eosinophils % 5.6 % (0.1-12.0); Hematocrit 40.2 % (42.0-52.0); Hemoglobin 12.9 g/dL (14.1-18.0); Lymphocytes % 25.1 % (10-50); Mean Corpuscular HGB Conc 32.1 g/dL (31.8-35.4); Mean Corpuscular Hemoglobin 28.1 pg (27.0-31.2); Mean Corpuscular Volume 87.6 fl (80-94); Mean Platelet Volume 9.5 fl (7.4-10.4); Monocytes # 0.3 K/mm3 (0.1-1.0); Monocytes % 6.8 % (1.7-9.3); Neutrophils # 2.4 K/mm3 (1.8-7.8); Neutrophils % 61.2 % (37.0-80.0); Platelet Count 225 K/mm3 (142-424); Red Blood Count 4.59 M/mm3 (4.60-6.20); Red Cell Distribution Width 15.6 % (11.5-17.5)
[2022-08-31 10:25] LABS: Ammonia < 9 umol/L (9-30)
[2022-08-31 10:27] LABS: INR 1.11 (0.9-1.1); Prothrombin Time 11.9 seconds (10.1-12.5)
[2022-08-31 11:22] LABS: Alanine Aminotransferase 34 U/L (12-78); Albumin/Globulin Ratio 1.3 (1.1-1.8); Alkaline Phosphatase 63 U/L (38-126); Anion Gap 8.4 mEq/L (5-15); Aspartate Amino Transferase 39 U/L (17-59); Bilirubin,Total 0.5 mg/dl (0.2-1.3); Blood Urea Nitrogen 21 mg/dl (9-20); Carbon Dioxide 27 mmol/L (22.0-30.0); Chloride 104 mmol/L (98-107); Estimated Glomerular Filt Rate 81 ml/min (>60); GFR (African American) 98 ML/MIN (>60); Globulin 3.1 g/dL (1.3-3.2); Glucose 189 mg/dl (74-100); Potassium 4.4 mmoL/L (3.5-5.1); Sodium 135 mmol/L (136-145); Total Protein,Serum 7.1 g/dl (6.3-8.2)
[2022-08-31 12:20] LABS: Iron 43 ug/dL (49-181)
[2022-08-31 12:29] LABS: Total Iron Binding Capacity 401 ug/dL (261-462)
[2022-08-31 12:56] LABS: Ferritin 25.6 ng/ml (17.9-464)
[2022-09-01 10:13] LABS: AFP, Tumor Marker 5.9 ng/mL (0.0-8.4)
== END ==
PROVIDERS: PCP Family Medicine; Visit Provider Nurse Practitioner Family
DX: K75.81 Nonalcoholic steatohepatitis (NASH) (principal); K74.60 Unspecified cirrhosis of liver; F10.11 Alcohol abuse, in remission; K76.6 Portal hypertension; M25.471 Effusion, right ankle
CPT/HCPCS: 36415; 76705; 80053; 82105; 82140; 82728; 83540; 83550; 85025; 85610

== ENCOUNTER 2022-10-17 17:58 | Emergency (ER) | payer MEDICARE, SELFPAY ==
--- NOTE | 2022-10-17 18:18 | XR_ITS ---
PROCEDURE INFORMATION: Exam: XR Right Ribs with PA Chest Exam date and time: 10/17/2022 6:18 PM Age: 82 years old Clinical indication: Injury or trauma; Fall; Rib area; Crushing TECHNIQUE: Imaging protocol: Radiologic exam of the right ribs with PA chest. Views: 3 views COMPARISON: CR XR CHEST 2V 01/10/2021 9:16 AM FINDINGS: Lungs: There is stable mild left basilar atelectasis. Right lung is clear. Pleural spaces: Unremarkable. No pleural effusion. No pneumothorax. Heart/Mediastinum: Unremarkable. No cardiomegaly. Bones/joints: Unremarkable. IMPRESSION: No acute rib fracture evident
[2022-10-17 18:19] VITALS: BP 129/62; PULSE 73; RESP 18; O2SAT 93; BMI 36.1
[2022-10-17 18:20] VITALS: BP 129/62; PULSE 73; RESP 18; TEMP 36.7; O2SAT 93; BMI 36.3
--- NOTE | 2022-10-17 19:10 | EXP.UTC ---
Discharge Plan Disposition Patient Disposition: Home, Self-Care Condition: Good Prescriptions Prescriptions: No Action pioglitazone [Actos] 30 mg tablet 30 mg PO DAILY Qty: 90 3RF levofloxacin 500 mg tablet 500 mg PO DAILY 10 Days Qty: 10 0RF atorvastatin 40 mg tablet See Rx Instructions .ROUTE .COMPLEX Qty: 90 3RF Dose Instruction: TAKE 1 TABLET BY MOUTH EVERY DAY Rx Instructions: TAKE 1 TABLET BY MOUTH EVERY DAY glipizide 10 mg tablet 10 mg PO DAILY Qty: 90 2RF lisinopril 5 mg tablet 5 mg PO DAILY Qty: 90 2RF omeprazole 40 mg capsule,delayed release(DR/EC) 40 mg PO BID Qty: 60 0RF potassium chloride 20 mEq tablet extended release 20 meq PO DAILY Qty: 90 2RF lactulose 10 gram packet 30 g PO DAILY Qty: 90 2RF levothyroxine [Synthroid] 25 mcg tablet 25 mcg PO DAILY Qty: 90 3RF (DME) Accu-Chek Jess Plus test strp Strip See Rx Instructions .ROUTE .COMPLEX Qty: 300 0RF Dose Instruction: USE DIRECTED Rx Instructions: USE DIRECTED torsemide 20 mg tablet 20 mg PO DAILY Qty: 90 3RF Rx Instructions: instead of lasix nadolol 20 mg tablet 20 mg PO DAILY Qty: 90 2RF Referrals Follow up/Referrals: Onel Boudreaux MD [Primary Care Provider] - See instructions Clinical Impressions Clinical Impression: Contusion of rib on right side Instructions Patient Instructions: DI for Rib Contusion Discharge ED Provider: Denisse Dey [facility] General Stated complaint: AO 10/17 right upper ribs Mode of Arrival: Ambulatory Source of Information: Patient and Spouse Limitations: No Limitations Time Seen by Provider: 10/17/22 18:57 Description of Symptoms (Recalled from Triage Doc. by RN): PATIENT C/O RIGHT RIB PAIN AFTER FALLING AND HITTING THE GROUND. DENIES ANY OTHER INJURIES HEENT Symptoms (Recalled from RN notes): No Resp Symptoms (Recalled from RN notes): No Skin Symptoms (Recalled from RN notes): No MS Symptoms (Recalled from RN notes): Yes Functional Status (Recalled from RN notes): WNL History of Present Illness Provider Complaint: Pt states that he was cutting a wood stump and fell over the stump on his right side and caused some rib pain. He states that other than scratches he has not had any other issues. Related Data Previous Rx's Medication Instructions Recorded lactulose 10 gram oral packet 30 g PO DAILY Supplement #90 ea 03/05/21 potassium chloride 20 mEq 20 meq PO DAILY . #90 tabs 03/05/21 tablet,extended release atorvastatin 40 mg tablet See Rx Instructions .Route 04/18/21 .COMPLEX #90 tabs glipizide 10 mg tablet 10 mg PO DAILY Diabetes #90 tabs 04/18/21 lisinopril 5 mg tablet 5 mg PO DAILY Hypertension #90 tabs 04/18/21 levothyroxine 25 mcg tablet 25 mcg PO DAILY #90 tabs 04/21/21 (Synthroid) blood sugar diagnostic (Accu-Chek #300 strips 06/11/21 Jess Plus test strips) pioglitazone 30 mg tablet (Actos) 30 mg PO DAILY #90 tabs 12/23/21 torsemide 20 mg tablet 20 mg PO DAILY #90 tabs 12/31/21 omeprazole 40 mg capsule,delayed 40 mg PO BID #60 caps 06/23/22 release levofloxacin 500 mg tablet 500 mg PO DAILY 10 days #10 tabs 07/14/22 nadolol 20 mg tablet 20 mg PO DAILY Hypertension #90 09/25/22 tabs Allergies Allergy/AdvReac Type Severity Reaction Status Date / Time sitagliptin [From Julthien] Allergy yeast Verified 07/14/22 10:13 infections Worker's Comp Is this a Worker's Comp case?: No [facility] Disclaimer: The information contained in this section may have been updated after the patient was seen, as this information can be updated by other users. Social History Smoking Status: Former smoker alcohol intake: former substance use type: denies use current occupational status: retired Travel in the last 8 weeks: None ROS Obtained: Yes All systems reviewed & no additional complaints except as documented Consti
[2022-10-17 19:19] VITALS: BP 129/62; PULSE 73; RESP 18; TEMP 36.7; O2SAT 93
== END 2022-10-17 19:30 | disposition home or self-care (01) ==
PROVIDERS: Emergency Provider Nurse Practitioner Family; PCP Family Medicine
DX: S20.211A Contusion of right front wall of thorax, initial encounter (principal); Z87.891 Personal history of nicotine dependence; W19.XXXA Unspecified fall, initial encounter
CPT/HCPCS: 71101; 99203; 99212; G0463

== ENCOUNTER → 2023-01-01 10:46 | Outpatient (CLI) | payer MEDICARE, SELFPAY ==
[2023-01-01 11:02] LABS: Basophils # 0.1 K/mm3 (0-0.2); Eosinophils # 0.3 K/mm3 (0.0-0.4); Eosinophils % 6.5 % (0.1-12.0); Hemoglobin 13.3 g/dL (14.1-18.0); Lymphocytes # 1.4 K/mm3 (0.7-4.5); Mean Corpuscular HGB Conc 31.7 g/dL (31.8-35.4); Mean Corpuscular Hemoglobin 28.1 pg (27.0-31.2); Mean Corpuscular Volume 88.7 fl (80-94); Mean Platelet Volume 10.1 fl (7.4-10.4); Monocytes # 0.3 K/mm3 (0.1-1.0); Monocytes % 5.9 % (1.7-9.3); Neutrophils % 58.6 % (37.0-80.0); Platelet Count 194 K/mm3 (142-424); Red Blood Count 4.74 M/mm3 (4.60-6.20); Red Cell Distribution Width 14.8 % (11.5-17.5); White Blood Count 5.1 K/mm3 (4.8-10.8)
[2023-01-01 11:16] LABS: Iron 79 ug/dL (49-181)
[2023-01-01 11:25] LABS: Total Iron Binding Capacity 383 ug/dL (261-462)
[2023-01-01 15:20] LABS: Ferritin 38.5 ng/ml (17.9-464)
== END ==
PROVIDERS: PCP Family Medicine; Visit Provider Nurse Practitioner Family
DX: K75.81 Nonalcoholic steatohepatitis (NASH) (principal); D50.9 Iron deficiency anemia, unspecified; K74.60 Unspecified cirrhosis of liver; K76.6 Portal hypertension; F10.11 Alcohol abuse, in remission; K72.90 Hepatic failure, unspecified without coma; R15.2 Fecal urgency
CPT/HCPCS: 36415; 82728; 83540; 83550; 85025

== ENCOUNTER → 2023-02-24 11:02 | Outpatient (CLI) | payer MEDICARE, SELFPAY ==
--- NOTE | 2023-02-24 11:12 | XR_ITS ---
FINAL REPORT CLINICAL HISTORY: chest congestion, cough FINDINGS: TWO-VIEW CHEST The heart size is normal. The mediastinum is normal. The lungs are clear. There is no pneumothorax. IMPRESSION: No acute cardiopulmonary process. Reviewed, Interpreted and Dictated by Matthew Tapia MD Transcribed by Estella Pineda Authenticated and [facility]
[2023-02-24 12:20] LABS: Coronavirus 19, PCR Detected (NotDetected); Influenza A, PCR Not Detected (NotDetected); Influenza B, PCR Not Detected (NotDetected)
== END ==
PROVIDERS: PCP Family Medicine; Visit Provider Internal Medicine
DX: U07.1 COVID-19 (principal)
CPT/HCPCS: 71046; 87636

== ENCOUNTER 2023-03-07 22:30 | Emergency (ER) | payer MEDICARE, SELFPAY ==
[2023-03-07 22:33] VITALS: BP 125/65; PULSE 84; RESP 18; TEMP 36.7; O2SAT 95; BMI 36.1
[2023-03-07 23:00] VITALS: BP 126/64; PULSE 81; O2SAT 92
[2023-03-07 23:30] VITALS: BP 120/69; PULSE 82; O2SAT 94
--- NOTE | 2023-03-07 23:58 | HMH.EDGENADL ---
Discharge Plan Disposition Patient Disposition: Xfer Other Condition: Good Chief Complaint: Eye Problems Prescriptions Prescriptions: No Action atorvastatin 40 mg tablet See Rx Instructions .ROUTE .COMPLEX Qty: 90 3RF Dose Instruction: TAKE 1 TABLET BY MOUTH EVERY DAY Rx Instructions: TAKE 1 TABLET BY MOUTH EVERY DAY glipizide 10 mg tablet 10 mg PO DAILY Qty: 90 2RF lisinopril 5 mg tablet 5 mg PO DAILY Qty: 90 2RF guaifenesin 600 mg tablet extended release 12hr 600 mg PO Q12H PRN (Reason: congestion) Qty: 14 0RF benzonatate 100 mg capsule 100 mg PO TID PRN (Reason: cough) Qty: 20 0RF Rx Instructions: 1-2 capsules as needed for cough potassium chloride 20 mEq tablet extended release 20 meq PO DAILY Qty: 90 2RF (DME) Accu-Chek Jess Plus test strp Strip See Rx Instructions .ROUTE .COMPLEX Qty: 300 0RF Dose Instruction: USE DIRECTED Rx Instructions: USE DIRECTED nadolol 20 mg tablet 20 mg PO DAILY Qty: 90 2RF atorvastatin 40 mg tablet 40 mg PO DAILY torsemide 20 mg tablet See Rx Instructions .ROUTE .COMPLEX Rx Instructions: TAKE 1 TABLET EVERY DAY INSTEAD OF LASIX levothyroxine [Synthroid] 25 mcg tablet 25 mcg PO DAILY Referrals Follow up/Referrals: Onel Boudreaux MD [Primary Care Provider] - See instructions Activity Restrictions/Add. Instructions Additional Instructions/Restrictions: Please proceed immediately to the emergency department for ophthalmologic evaluation. Clinical Impressions Clinical Impression: Herpes zoster ophthalmicus of left eye, Acute loss of vision Stand Alone Forms Stand Alone Forms: Transfer Record - ED Discharge ED Provider: Nesha Casiano General Adult HPI General Chief complaint: Eye Problems Stated complaint: Left eye infected Time Seen by Provider: 03/07/23 23:13 Mode of Arrival: Ambulatory Source of Information: Patient and Spouse Limitations: No Limitations Description of Symptoms (Recalled from ER Triage Doc. by RN): Left eye pain, reddness, and draining. History of Present Illness HPI narrative: 82-year-old male history of [id number] diabetes, hypertension, hyperlipidemia presents with unilateral left eye pain and redness for the last 3 days. He reports that it started slowly, has become more severe. Pain is primarily with light. Denies pruritus. Denies any other associated skin changes. Reports significantly blurry vision. Nothing like this is happened before. No history of glaucoma. No reported fever at home. Because of the holiday weekend he has been unable to get into any eye doctors. Related Data Home Medications Medication Instructions Recorded Confirmed atorvastatin 40 mg tablet 40 mg PO DAILY High Blood Pressure 03/07/23 03/07/23 levothyroxine 25 mcg tablet 25 mcg PO DAILY thyroid 03/07/23 03/07/23 (Synthroid) torsemide 20 mg tablet See Rx Instructions .Route 03/07/23 03/07/23 .COMPLEX High Blood Pressure Previous Rx's Medication Instructions Recorded potassium chloride 20 mEq 20 meq PO DAILY . #90 tabs 03/05/21 tablet,extended release atorvastatin 40 mg tablet See Rx Instructions .Route 04/18/21 .COMPLEX #90 tabs glipizide 10 mg tablet 10 mg PO DAILY Diabetes #90 tabs 04/18/21 lisinopril 5 mg tablet 5 mg PO DAILY Hypertension #90 tabs 04/18/21 blood sugar diagnostic (Accu-Chek #300 strips 06/11/21 Jess Plus test strips) nadolol 20 mg tablet 20 mg PO DAILY Hypertension #90 09/25/22 tabs benzonatate 100 mg capsule 100 mg PO TID PRN cough #20 caps 02/24/23 guaifenesin 600 mg tablet, 600 mg PO Q12H PRN congestion #14 02/24/23 extended release 12 hr tabs Allergies Allergy/AdvReac Type Severity Reaction Status Date / Time sitagliptin [From ] Allergy yeast Verified 02/24/23 09:37 infections [facility] Disclaimer: The information contained in this section may have been updated after t
[2023-03-08] VITALS: BP 122/74; PULSE 75; O2SAT 95
[2023-03-08 00:30] VITALS: BP 114/70; PULSE 68; O2SAT 95
[2023-03-08 01:01] VITALS: BP 95/68; PULSE 66; RESP 18; O2SAT 95
--- NOTE | 2023-03-08 01:34 | PC.NURSE ---
contacting [facility] for a consultation
--- NOTE | 2023-03-08 01:38 | PC.NURSE ---
on phone with dr morales @ [facility]
--- NOTE | 2023-03-08 01:47 | PC.NURSE ---
Rounded on patient, no concerns at this time.
[2023-03-08 02:02] VITALS: BP 146/81; PULSE 75; RESP 22; TEMP 36.6; O2SAT 97
== END 2023-03-08 02:36 | disposition other institution (70) ==
PROVIDERS: Emergency Provider Student in an Organized Health Care Education/Training Program; PCP Family Medicine
DX: B02.39 Other herpes zoster eye disease (principal); E11.9 Type 2 dia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s; I10 Essential (primary) hypertension; E78.5 Hyperlipidemia, unspecified; E07.9 Disorder of thyroid, unspecified; Z85.46 Personal history of malignant neoplasm of prostate; Z87.891 Personal history of nicotine dependence
CPT/HCPCS: 99285

== ENCOUNTER → 2023-03-16 13:17 | Outpatient (CLI) | payer MEDICARE, SELFPAY ==
[2023-03-16 14:14] LABS: Basophils % 0.6 % (0.1-2.0); Eosinophils # 0.3 K/mm3 (0.0-0.4); Eosinophils % 6.2 % (0.1-12.0); Hemoglobin 13.4 g/dL (14.1-18.0); Lymphocytes # 1.4 K/mm3 (0.7-4.5); Lymphocytes % 25.4 % (10-50); Mean Corpuscular HGB Conc 32.7 g/dL (31.8-35.4); Mean Corpuscular Hemoglobin 29.5 pg (27.0-31.2); Mean Corpuscular Volume 90.2 fl (80-94); Mean Platelet Volume 9.9 fl (7.4-10.4); Monocytes # 0.3 K/mm3 (0.1-1.0); Monocytes % 6.3 % (1.7-9.3); Neutrophils # 3.2 K/mm3 (1.8-7.8); Neutrophils % 61.4 % (37.0-80.0); Platelet Count 179 K/mm3 (142-424); Red Blood Count 4.54 M/mm3 (4.60-6.20); Red Cell Distribution Width 14.2 % (11.5-17.5); White Blood Count 5.3 K/mm3 (4.8-10.8)
[2023-03-16 14:26] LABS: Chloride 104 mmol/L (98-107); Potassium 4.1 mmoL/L (3.5-5.1); Sodium 137 mmol/L (136-145)
[2023-03-16 14:29] LABS: Alanine Aminotransferase 35 U/L (12-78); Alkaline Phosphatase 68 U/L (38-126); Anion Gap 11.1 mEq/L (5-15); Aspartate Amino Transferase 42 U/L (17-59); Bilirubin,Total 0.8 mg/dl (0.2-1.3); Blood Urea Nitrogen 13 mg/dl (9-20); Calcium 8.6 mg/dl (8.4-10.2); Carbon Dioxide 26 mmol/L (22.0-30.0); Estimated Glomerular Filt Rate 81 ml/min (>60); GFR (African American) 98 ML/MIN (>60); Glucose 106 mg/dl (74-100); Iron 86 ug/dL (49-181); Total Protein,Serum 7.1 g/dl (6.3-8.2)
[2023-03-16 14:39] LABS: Total Iron Binding Capacity 364 ug/dL (261-462)
[2023-03-16 15:04] LABS: Ferritin 57.3 ng/ml (17.9-464)
[2023-03-16 15:11] LABS: Albumin Level 3.7 g/dl (3.5-5.0); Albumin/Globulin Ratio 1.1 (1.1-1.8); Globulin 3.4 g/dL (1.3-3.2)
== END ==
PROVIDERS: PCP Family Medicine; Visit Provider Nurse Practitioner Family
DX: D50.9 Iron deficiency anemia, unspecified (principal)
CPT/HCPCS: 80053; 82728; 83540; 83550; 85025

== ENCOUNTER → 2023-03-25 23:34 | Outpatient (CLI) | payer MEDICARE, SELFPAY ==
[2023-03-25 19:58] LABS: Alanine Aminotransferase 28 U/L (12-78); Albumin Level 3.9 g/dl (3.5-5.0); Albumin/Globulin Ratio 1.1 (1.1-1.8); Alkaline Phosphatase 59 U/L (38-126); Aspartate Amino Transferase 38 U/L (17-59); Bilirubin,Total 0.4 mg/dl (0.2-1.3); Blood Urea Nitrogen 26 mg/dl (9-20); Calcium 9.4 mg/dl (8.4-10.2); Carbon Dioxide 31 mmol/L (22.0-30.0); Chloride 98 mmol/L (98-107); Estimated Glomerular Filt Rate 64 ml/min (>60); GFR (African American) 78 ML/MIN (>60); Globulin 3.6 g/dL (1.3-3.2); Glucose 142 mg/dl (74-100); Sodium 138 mmol/L (136-145); Total Protein,Serum 7.5 g/dl (6.3-8.2)
[2023-03-25 20:02] LABS: Basophils % 0.7 % (0.1-2.0); Eosinophils # 0.4 K/mm3 (0.0-0.4); Eosinophils % 7.1 % (0.1-12.0); Hematocrit 43.3 % (42.0-52.0); Hemoglobin 13.4 g/dL (14.1-18.0); Lymphocytes # 1.5 K/mm3 (0.7-4.5); Mean Corpuscular HGB Conc 30.9 g/dL (31.8-35.4); Mean Corpuscular Hemoglobin 29.1 pg (27.0-31.2); Mean Corpuscular Volume 94.2 fl (80-94); Mean Platelet Volume 11.7 fl (7.4-10.4); Monocytes # 0.3 K/mm3 (0.1-1.0); Monocytes % 6.6 % (1.7-9.3); Neutrophils % 57.5 % (37.0-80.0); Platelet Count 177 K/mm3 (142-424); Red Cell Distribution Width 14.6 % (11.5-17.5); White Blood Count 5.2 K/mm3 (4.8-10.8)
[2023-03-25 20:24] LABS: Hemoglobin A1C 7.3 % (4.0-6.0)
[2023-03-25 20:29] LABS: Thyroid Stimulating Hormone 2.62 uIU/mL (0.465-4.68)
== END ==
PROVIDERS: PCP Family Medicine; Visit Provider Family Medicine
DX: R09.89 Other specified symptoms and signs involving the circulatory and respiratory systems (principal); M54.9 Dorsalgia, unspecified; E11.9 Type 2 dia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s; I10 Essential (primary) hypertension; Z79.84 Long term (current) use of oral hypoglycemic drugs; Z87.891 Personal history of nicotine dependence
CPT/HCPCS: 80053; 83036; 84443; 85025

== ENCOUNTER → 2023-03-29 08:27 | Outpatient (CLI) | payer MEDICARE, SELFPAY ==
--- NOTE | 2023-03-29 08:34 | US_ITS ---
FINAL REPORT TECHNIQUE: Sonographic images of the right upper quadrant were obtained. CLINICAL HISTORY: HX OF CIRRHOSIS COMPARISON: 08/31/2022 FINDINGS: PANCREAS: The tail of the pancreas is not well visualized secondary to overlying bowel gas. The head of the pancreas appears unremarkable.. LIVER: There is coarse echotexture of the liver parenchyma, compatible with the patient's clinical history of cirrhosis. This is unchanged since the prior ultrasound of August 2022. No focal hepatic lesion. No intrahepatic biliary ductal dilatation. The portal vein is patent with normal directional flow. GALLBLADDER: No gallstones. No gallbladder wall thickening or pericholecystic fluid. COMMON DUCT: 2 mm. Normal for age. RIGHT KIDNEY: The right kidney measures 9.8 cm. There is no hydronephrosis, mass, or stone. FREE FLUID: None. IMPRESSION: Unremarkable ultrasound of the right upper quadrant. Reviewed, Interpreted and Dictated by Angelica Drew MD Transcribed by Merary Fraga Authenticated and . [facility]
== END ==
PROVIDERS: PCP Family Medicine; Visit Provider Nurse Practitioner Family
DX: K75.81 Nonalcoholic steatohepatitis (NASH) (principal); F10.11 Alcohol abuse, in remission; K74.60 Unspecified cirrhosis of liver; K76.6 Portal hypertension; D50.9 Iron deficiency anemia, unspecified
CPT/HCPCS: 93975

== ENCOUNTER → 2023-05-13 23:27 | Outpatient (CLI) | payer MEDICARE, SELFPAY ==
[2023-05-13 21:32] LABS: Basophils % 0.7 % (0.1-2.0); Eosinophils # 0.3 K/mm3 (0.0-0.4); Eosinophils % 4.7 % (0.1-12.0); Hematocrit 40.7 % (42.0-52.0); Hemoglobin 13.8 g/dL (14.1-18.0); Lymphocytes # 1.3 K/mm3 (0.7-4.5); Lymphocytes % 22.5 % (10-50); Mean Corpuscular Hemoglobin 32.1 pg (27.0-31.2); Mean Corpuscular Volume 94.3 fl (80-94); Mean Platelet Volume 11.3 fl (7.4-10.4); Monocytes # 0.4 K/mm3 (0.1-1.0); Monocytes % 7.1 % (1.7-9.3); Neutrophils # 3.7 K/mm3 (1.8-7.8); Neutrophils % 64.9 % (37.0-80.0); Platelet Count 167 K/mm3 (142-424); Red Blood Count 4.32 M/mm3 (4.60-6.20); Red Cell Distribution Width 14.1 % (11.5-17.5); White Blood Count 5.8 K/mm3 (4.8-10.8)
[2023-05-13 21:52] LABS: Alanine Aminotransferase 30 U/L (12-78); Albumin Level 3.7 g/dl (3.5-5.0); Albumin/Globulin Ratio 1.2 (1.1-1.8); Alkaline Phosphatase 56 U/L (38-126); Aspartate Amino Transferase 36 U/L (17-59); Bilirubin,Total 0.5 mg/dl (0.2-1.3); Blood Urea Nitrogen 17 mg/dl (9-20); Calcium 9.1 mg/dl (8.4-10.2); Carbon Dioxide 29 mmol/L (22.0-30.0); Chloride 98 mmol/L (98-107); Chol/HDL Ratio 4.6 (1-3.5); Cholesterol 180 mg/dl (140-200); Estimated Glomerular Filt Rate 81 ml/min (>60); GFR (African American) 98 ML/MIN (>60); Globulin 3.2 g/dL (1.3-3.2); Glucose 164 mg/dl (74-100); HDL Cholesterol 39 mg/dl (40-60); Sodium 135 mmol/L (136-145); Total Protein,Serum 6.9 g/dl (6.3-8.2); Triglycerides 144 mg/dl (30-150); VLDL Cholesterol 29 mg/dL (0-40)
[2023-05-13 22:06] LABS: Direct LDL Cholesterol 103.43 mg/dL (100-129)
[2023-05-13 22:22] LABS: Prostate Specific Ag Screen < 0.1 ng/ml (0.0-4.0)
[2023-05-13 23:48] LABS: Hemoglobin A1C 7.2 % (4.0-6.0)
== END ==
PROVIDERS: PCP Family Medicine; Visit Provider Family Medicine
DX: E11.9 Type 2 dia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s (principal); Z12.5 Encounter for screening for malignant neoplasm of prostate; K62.89 Other specified diseases of anus and rectum; I10 Essential (primary) hypertension; Z79.84 Long term (current) use of oral hypoglycemic drugs; Z79.899 Other long term (current) drug therapy
CPT/HCPCS: 80053; 80061; 83036; 85025; G0103

== ENCOUNTER 2023-09-07 09:29 | Outpatient (CLI) | payer MEDICARE, SELFPAY ==
--- NOTE | 2023-09-07 09:35 | US_ITS ---
FINAL REPORT CLINICAL HISTORY: CIRRHOSIS,PORTAL HYPERTENSION,IRON DEF,[place] COMPARISON: 03/29/2023 FINDINGS: Sonographic images of the right upper quadrant were obtained. The pancreas is partially obscured. The liver has a coarsened echotexture, consistent with the clinical diagnosis of cirrhosis, and unchanged since the prior exam of March. The portal vein reveals normal directional flow, and measures 1.2 cm in greatest diameter, which is within normal limits. No gallstones are visualized, however there is borderline nonspecific gallbladder wall thickening. There is no evidence of biliary ductal dilatation.The common duct measures 3 mm. Limited images of the right kidney are unremarkable. IMPRESSION: Coarsened echotexture of the liver consistent with the clinical diagnosis of cirrhosis, stable. Nonspecific wall thickening of the gallbladder without definite stones or ductal dilatation. Reviewed, Interpreted and Dictated by Manjit Champion III, MD Transcribed by Merary Fraga Authenticated and [facility]
[2023-09-07 10:44] LABS: Basophils # 0.1 K/mm3 (0-0.2); Basophils % 1.4 % (0.1-2.0); Eosinophils # 0.2 K/mm3 (0.0-0.4); Eosinophils % 5.2 % (0.1-12.0); Hematocrit 41.5 % (42.0-52.0); Hemoglobin 13.1 g/dL (14.1-18.0); Lymphocytes # 1.4 K/mm3 (0.7-4.5); Lymphocytes % 29.3 % (10-50); Mean Corpuscular HGB Conc 31.6 g/dL (31.8-35.4); Mean Corpuscular Hemoglobin 30.5 pg (27.0-31.2); Mean Corpuscular Volume 96.6 fl (80-94); Mean Platelet Volume 10.3 fl (7.4-10.4); Monocytes # 0.4 K/mm3 (0.1-1.0); Monocytes % 7.6 % (1.7-9.3); Neutrophils # 2.6 K/mm3 (1.8-7.8); Neutrophils % 56.6 % (37.0-80.0); Platelet Count 163 K/mm3 (142-424); Red Cell Distribution Width 14.1 % (11.5-17.5); White Blood Count 4.6 K/mm3 (4.8-10.8)
[2023-09-07 10:47] LABS: INR 1.12 (0.9-1.1)
[2023-09-07 11:01] LABS: Ammonia < 9 umol/L (9-30)
[2023-09-07 11:02] LABS: Alanine Aminotransferase 33 U/L (12-78); Albumin Level 3.9 g/dl (3.5-5.0); Albumin/Globulin Ratio 1.4 (1.1-1.8); Alkaline Phosphatase 64 U/L (38-126); Anion Gap 10.1 mEq/L (5-15); Aspartate Amino Transferase 38 U/L (17-59); Bilirubin,Total 0.7 mg/dl (0.2-1.3); Blood Urea Nitrogen 17 mg/dl (9-20); Calcium 9.3 mg/dl (8.4-10.2); Carbon Dioxide 29 mmol/L (22.0-30.0); Chloride 101 mmol/L (98-107); Estimated Glomerular Filt Rate 81 ml/min (>60); GFR (African American) 98 ML/MIN (>60); Globulin 2.8 g/dL (1.3-3.2); Glucose 230 mg/dl (74-100); Potassium 4.1 mmoL/L (3.5-5.1); Sodium 136 mmol/L (136-145); Total Protein,Serum 6.7 g/dl (6.3-8.2)
[2023-09-07 12:39] LABS: Iron 75 ug/dL (49-181)
[2023-09-07 15:04] LABS: Total Iron Binding Capacity 374 ug/dL (261-462)
[2023-09-08 08:18] LABS: AFP, Tumor Marker 6.1 ng/mL (0.0-6.4)
== END 2023-09-07 23:59 ==
LOC: RAD 09:30
PROVIDERS: PCP Family Medicine; Visit Provider Nurse Practitioner Family
DX: K75.81 Nonalcoholic steatohepatitis (NASH) (principal); F10.11 Alcohol abuse, in remission; K74.60 Unspecified cirrhosis of liver; K72.90 Hepatic failure, unspecified without coma; K76.6 Portal hypertension; D50.9 Iron deficiency anemia, unspecified
CPT/HCPCS: 36415; 76705; 80053; 82105; 82140; 82728; 83540; 83550; 85025; 85610

== ENCOUNTER 2024-09-29 15:11 | Outpatient (CLI) | payer MEDICARE, SELFPAY ==
[2024-09-29 18:38] LABS: Basophils % 0.9 % (0.1-2.0); Eosinophils # 0.3 K/mm3 (0.0-0.4); Eosinophils % 5.7 % (0.1-12.0); Hematocrit 40.2 % (42.0-52.0); Hemoglobin 13.2 g/dL (14.1-18.0); Lymphocytes # 1.2 K/mm3 (0.7-4.5); Lymphocytes % 27.8 % (10-50); Mean Corpuscular HGB Conc 32.8 g/dL (31.8-35.4); Mean Corpuscular Hemoglobin 29.8 pg (27.0-31.2); Mean Corpuscular Volume 90.7 fl (80-94); Mean Platelet Volume 12.7 fl (7.4-10.4); Monocytes # 0.4 K/mm3 (0.1-1.0); Monocytes % 9.5 % (1.7-9.3); Neutrophils # 2.5 K/mm3 (1.8-7.8); Neutrophils % 55.9 % (37.0-80.0); Platelet Count 160 K/mm3 (142-424); Red Blood Count 4.43 M/mm3 (4.60-6.20); Red Cell Distribution Width 12.8 % (11.5-17.5); White Blood Count 4.4 K/mm3 (4.8-10.8)
[2024-09-29 19:06] LABS: Alanine Aminotransferase 34 U/L (12-78); Albumin Level 4.1 g/dl (3.5-5.0); Albumin/Globulin Ratio 1.4 (1.1-1.8); Alkaline Phosphatase 57 U/L (38-126); Anion Gap 11.3 mEq/L (5-15); Aspartate Amino Transferase 43 U/L (17-59); Bilirubin,Total 0.6 mg/dl (0.2-1.3); Blood Urea Nitrogen 15 mg/dl (9-20); Calcium 9.8 mg/dl (8.4-10.2); Carbon Dioxide 30 mmol/L (22.0-30.0); Chloride 100 mmol/L (98-107); Chol/HDL Ratio 3.9 (1-3.5); Cholesterol 185 mg/dl (140-200); Estimated Glomerular Filt Rate 53 ml/min (>60); GFR (African American) 64 ML/MIN (>60); Glucose 139 mg/dl (74-100); HDL Cholesterol 47 mg/dl (40-60); Potassium 4.3 mmoL/L (3.5-5.1); Sodium 137 mmol/L (136-145); Total Protein,Serum 7.1 g/dl (6.3-8.2); Triglycerides 190 mg/dl (30-150); VLDL Cholesterol 38 mg/dL (0-40)
[2024-09-29 19:20] LABS: Direct LDL Cholesterol 90.93 mg/dL (100-129); Hemoglobin A1C 7.8 % (4.0-6.0)
[2024-09-29 19:36] LABS: Prostate Specific Ag Screen < 0.1 ng/ml (0.0-4.0); Thyroid Stimulating Hormone 2.26 uIU/mL (0.465-4.68)
== END 2024-09-29 23:59 | disposition home or self-care (01) ==
LOC: LAB.DROPOF 09-30 11:18
PROVIDERS: PCP Family Medicine; Visit Provider Family Medicine
DX: I10 Essential (primary) hypertension (principal); E78.5 Hyperlipidemia, unspecified; K76.6 Portal hypertension; Z12.5 Encounter for screening for malignant neoplasm of prostate; E11.9 Type 2 dia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s
CPT/HCPCS: 80053; 80061; 83036; 84443; 85025; G0103

== ENCOUNTER 2024-12-13 10:50 | Outpatient (CLI) | payer MEDICARE, SELFPAY ==
--- NOTE | 2024-12-13 10:45 | CT_ITS ---
FINAL REPORT TECHNIQUE: Axial CT images were performed from the lung bases through the iliac crests. Coronal and sagittal reformats were submitted. This study was performed with techniques to keep radiation doses as low as reasonably achievable (ALARA). Individualized dose reduction techniques using automated exposure control or adjustment of mA and/or kV according to the patient's size were employed. CLINICAL HISTORY: Cirrhosis; bilateral flank pain; history of prostate cancer COMPARISON: 07/14/2022 FINDINGS: CT ABDOMEN W/O CONTRAST There is scarring at the left lung base. The liver has a nodular peripheral margin consistent with cirrhosis. The gallbladder is present. The spleen measures at the upper limits of normal in size. The pancreas, adrenals and kidneys appear unremarkable. There is a partially calcified precaval lymph node measuring up to 3.1 x 1.5 cm, which appears stable. There is no evidence of nephrolithiasis or hydronephrosis. IMPRESSION: Cirrhosis with borderline splenomegaly. Reviewed, Interpreted and Dictated by Matthew Tapia MD Transcribed by Pema Romero Authenticated and [facility]
--- OUTSIDE RECORDS SUMMARY | 2024-12-13 10:54 | XMS_ITS | Referral Summary ---
Author Organization [facility] Address [address] [place] [address] Phone Care Team Providers Care Intensive Care Medicine Specialist Name Role Phone Dewayne Hong MD Primary Care Provider Unav ailable Allergies No known active allergies Medications VIAGRA 50 MG OR TABS 1 TABLET DAILY NEEDED 12 0 09/22/2004 Active Social History Tobacco Use Types Packs/Day Years Used Date Smoking Tobacco: Every Day Cigarettes Alcohol Use Standard Drinks/Week Comments Not Asked 0 (1 standard drink = 0.6 oz pur e alcohol) Comments No Sex and Gender Information Value Date Recorded Sex Assigned at Not on file Legal Sex Male 4:19 AM EDT Gender Identity Not on file Sexual Orientation Not on file Last Filed Vital Signs Vital Sign Reading Time Taken Comments Blood Pressure 120/84 06/17/2004 12:22 PM EST Pulse 80 06/17/2004 12:22 PM EST Temperature 36.4 C (97.6 F) 06/17/2004 12:22 PM EST Respiratory Rate - - Oxygen Saturation - - Inhaled Oxygen Concentration - - Weight 87.1 kg (192 lb) 06/17/2004 12:22 PM EST Height 152.4 cm (5') 06/17/2004 12:22 PM EST Body Mass Index 37.5 06/17/2004 12:22 PM EST Plan of Treatment Not on file Care Teams Intensive Care Medicine Specialist Relationship Specialty Start Date End Date Dewayne Hong MD PCP - General 04/18/01
--- OUTSIDE RECORDS SUMMARY | 2024-12-13 10:55 | XMS_ITS | Clinical Summary ---
Author Organization [facility] Address [address] [place] [address] Phone Care Team Providers Care Psychology Instructor Name Role Phone Dewayne Hong MD Primary [...] 06/17/2004 12:22 PM EST Plan of Treatment Health Maintenance Due Date Last Done Comments DTap,Tdap,and Td (1 - Tdap) 1953 Pneumococcal 50+ (1 of 1 - PCV) 1992 Shingrix (#1) 1992 DEXA Scan 2007 RSV Vaccine (60+ or ) (1 - 1-dose 75+ series) 2017 Influenza Vaccine (Season Ended) 2025 HPV Aged Out No longer eligi ble based on patient's age to complete this topic Meningococcal conjugate mee nt 4 (MCV4) Aged Out No longer eligible b ased on patient's age to complete this topic RSV Immunization (<20 months) Aged Out No longer eligible based on patient's age to complete this topic Care Teams Psychology Instructor Relationship Specialty Start Date End Date Dewayne Hong MD PCP - General 04/18/01
--- OUTSIDE RECORDS SUMMARY | 2024-12-13 10:55 | XMS_ITS | Clinical Summary ---
Author Organization Healthcare Address [address] [place] [address] Care Team Providers Care Team Physician Name Role Phone Onel Boudreaux MD Primary Care Provider [phone] Allergies No known active allergies Medications erythromycin (Romycin) 5 MG/GM ophthalmic ointment Apply 1 Application to affected eye(s) 4 (four) times a day. ~1 cm instilled into affected eye 4 times per day x 7 days (quantity = 3.5 g tube) 3.5 g 3 Active Family History Medical History Relation Name Comments Stroke Brother 1 Other cancer Brother 2 Heart attack Brother 3 Other cancer Father's Sister Coronary artery disease Other 1 Other cancer Other 2 Other cancer Sister Relation Name Status Comments Brother 1 Brother 2 Brother 3 Father's Sister Other 1 Other 2 Sister Social History Tobacco Use Types Packs/Day Years Used Date Smoking Tobacco: Former Smokeless Tobacco: Never Tobacco Cessation:Counseling Given: Not Answered Alcohol Use Standard Drinks/Week Comments No 0 (1 standard drink = 0.6 oz pur e alcohol) Sex and Gender Information Value Date Recorded Sex Assigned at Not on file Legal Sex Male 6:32 PM EDT Gender Identity Not on file Sexual Orientation Not on file Last Filed Vital Signs Vital Sign Reading Time Taken Comments Blood Pressure 132/73 03/08/2023 11:20 AM EDT Pulse 62 03/08/2023 11:20 AM EDT Temperature 36.5 C (97.7 F) 03/08/2023 11:20 AM EDT Respiratory Rate 16 03/08/2023 11:20 AM EDT Oxygen Saturation 96% 03/08/2023 11:20 AM EDT Inhaled Oxygen Concentration - - Weight 83.9 kg (185 lb) 03/08/2023 4:29 AM EDT Height 152.4 cm (5') 03/08/2023 4:29 AM EDT Body Mass Index 36.13 03/08/2023 4:29 AM EDT Plan of Treatment Health Maintenance Due Date Last Done Comments [facility]-Depression Screening 1942 [facility]-Medicare Annual Wellness (AWV) 1942 [facility]-Infant/Child/Adol SDOH Screenings 1942 [facility]-Obesity Intervention 1948 [facility]- SDOH Screenings 1960 [facility]-Adult SDOH Screenings 1960 [facility]-Zoster Vaccines (1 of 2) 1992 [facility]-RSV Vaccine: 60+ Years o r (1 - 1-dose 75+ series) 2017 [facility]-Pneumococcal Vaccine: 50 + Years (2 of 2 - PCV) 11/22/2018 11/22/2017 [id number] Vaccine (1 - 20 24-25 season) 2024 [facility]-Influenza Vaccine (Seas[place] n Ended) 2025 [facility]-DTaP,Tdap,and Td Vaccine s (2 - Td or Tdap) 11/23/2027 11/22/2017 HPV Vaccines Aged Out No longer eligi ble based on patient's age to complete this topic [facility]-HIB Vaccines Aged Out No longer e ligible based on patient's age to complete this topic [facility]-Hepatitis A Vaccines Aged Out No longer eligible based on patient's age to complete this topic [facility]-IPV Vaccines Aged Out No longer e ligible based on patient's age to complete this topic [facility]-Rotavirus Vaccines Aged Out No lo nger eligible based on patient's age to complete this topic Insurance MEDICARE Care Teams Team Physician Relationship Specialty Start Date End Date Onel Boudreaux MD PCP - General 07/02/22
--- OUTSIDE RECORDS SUMMARY | 2024-12-13 10:55 | XMS_ITS | Encounter Summary ---
Author Organization [facility] Address [address] [place] [address] Care Team Providers Care Allergist Name Role Phone Onel Boudreaux MD Primary Care Provider [phone] Encounter Details Date Type Department Care Team (Late st Contact Info) Description 03/08/2023 Ophth Exam [facility] [address] [place] [address] Terra Khan MD [address] [place] [address] Social History Tobacco Use Types Packs/Day Years Used Date Smoking Tobacco: Former Smokeless Tobacco: Never Alcohol Use Standard Drinks/Week Comments No 0 (1 standard drink = 0.6 oz pur e alcohol) Sex and Gender Information Value Date Recorded Sex Assigned at Not on file Legal Sex Male 6:32 PM EDT Gender Identity Not on file Sexual Orientation Not on file documented as of this encounter Functional Status * Calculated C-SSRS Risk Score (Lifetime/Recent) Answer Date of Assessment Author No Risk Indicated 03/08/2023 5:12 AM EDT Darren Reynoso RN * Question Answer Date of Assessment Author 1. Wish to be (Past 1 Month) No 03/08/2023 5:12 AM EDT Hiram Reynoso RN 2. Non-Specific Active Suicidal Thoughts (Past 1 Month) No 03/08/2023 5:12 AM EDT Hiram Reynoso RN 6. Suicidal Behavior (Lifetime) No 03/08/2023 5:12 AM EDT Hiram Reynoso RN documented as of this encounter Plan of Treatment Not on file documented as of this encounter Visit Diagnoses Not on filedocumented in this encounter Care Teams Allergist Relationship Specialty Start Date End Date Onel Boudreaux MD PCP - General 07/02/22 documented as of this encounter
--- OUTSIDE RECORDS SUMMARY | 2024-12-13 10:55 | XMS_ITS | Data Portability ---
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 No chest pain or pressure. No shortness of breath. Overall feels well. Always runs a little bradycardic. Heart rate is 50 today. Does not have any symptoms of symptomatic bradycardia. EKG shows sinus bradycardia with nonspecific ST and T-wave changes. No change from baseline. It has been over years since his last carotid evaluation and he does have moderate carotid artery stenosis bilateral with moderate to severe on the right. Will go ahead and repeat the carotid ultrasound. His echocardiogram it has only been a little over a year and he had normal function at that time with trivial mitral insufficiency. Not going to make any other changes in the medical regimen. He feels well. Meds and chart reviewed in full today. Blood work as per primary care Carotid ultrasound Continue beta-nam Continue torsemide at current dose Continue atorvastatin Monitor blood pressure and heart rate Follow-up in Cardiology Clinic in 6 months Plan: -Continue other current medications. -Continue aggressive risk factor modification. -Recommend LDL less than 70 -Encouraged regular exercise and activity. Patient Education was printed, I have reviewed the Past Medical, Family, and Social Histories along with ROS and all orders in today's record, and have noted any changes. Medications, charts and records reviewed in full today. Patient Education was printed, I have reviewed the Past Medical, Family, and Social Histories along with ROS and all orders in today's record, and have noted any changes. Medications, charts and records reviewed in full today. EKG TODAY SHOWS Sinus bradycardia with nonspecific ST and T-wave changes. Heart rate 50 EKG 04/29/22 Sinus bradycardia with a rate of 59 beats per minute, abnormal R-wave progression, nonspecific T-wave abnormality, abnormal EKG. LAST ECHO: 06/2021 EF 55% to 60% with trivial MR . LAST ISCHEMIC EVAL: 09/2019 ischemia. LAST HEART CATH: In 2018 PTCA and stenting of the LAD and RCA. LAST LDL: 10/2020 LDL was 51. Followed by PCP. LAST CNI: 05/2021 left 40% to 59% ICA stenosis, and right 60% to 79% ICA stenosis. CTA neck: 02/2019 left 25% ICA stenosis, and right 30% to 40% ICA stenosis. I, Michelle Thornton CMA, am scribing for, and in the presence of, Kristy Bella MD. IKristy M.D. performed the services as described in this documentation, as scribed by Michelle Thornton CMA in my presence, and it is both accurate and complete. This note was dictated using Motility Count software. If something is unclear, or does not make sense, please do not hesitate to contact our office at [phone] for clarification. [email or web address] Not available 10/27/2022 11:24:52 05/04/2023 05/04/2023 Patient Educatio n was printed, I have reviewed the Past Medical, Family, and Social Histories along with ROS and all orders in today's record, and have noted any changes. Medications, charts and records reviewed in full today. - EKG today reveals sinus bradycardia with a rate of 58 beats per minute, poor R-wave progression, nonspecific T-wave abnormality, abnormal EKG. Blood pressure 120/70, heart rate 58, weight 192 lb. Oxygen saturation is 97% on room air. - LAST ECHO: 06/2021 EF 55% to 60% with trivial MR. LAST ISCHEMIC EVAL: 09/2019 ischemia. LAST HEART CATH: In 2018 PTCA and stenting of the LAD and RCA. LAST LDL: 10/2020 LDL was 51. Followed by PCP. LAST CNI: 11/2022 stable 1% to 39% ICA stenosis bilaterally. CTA neck: 02/2019 left 25% ICA stenosis, and right 30% to 40% ICA stenosis. - Plan: Refill nitroglycerin. Continue current plan of care. EKG at follow-up. Follow-up in six months. - -Continue other current medications. -Continue aggressive risk factor modification. -Recommend LDL less than 70. -Encouraged regular exercise and activity. - This note was dictated using Motility Count software. If something is unclear, or does not make sense, please do not hesitate to contact our office at [phone] for clarification. Not available 05/04/2023 12:06:27 11/01/2023 11/01/2023 Patient Educatio n was printed, I have reviewed the Past Medical, Family, and Social Histories along with ROS and all orders in today's record, and have noted any changes. Medications, charts and records reviewed in full today. - blood pressure 142/76, heart rate 58, weight 187 lb. Oxygen saturation is 96% on room air. EKG today reveals sinus bradycardia with a rate of 56 beats per minute, nonspecific T-wave abnormality, abnormal EKG. - LAST ECHO: 06/2021 EF 55% to 60% with trivial MR. LAST ISCHEMIC EVAL: 09/2019 ischemia. LAST HEART CATH: In 2018 PTCA and stenting of the LAD and RCA. LAST LDL: 10/2020 LDL was 51. Followed by PCP. LAST CNI: 11/2022 stable 1% to 39% ICA stenosis bilaterally. CTA neck: 02/2019 left 25% ICA stenosis, and right 30% to 40% ICA stenosis. - Plan: Obtain echocardiogram. EKG at follow-up. Follow-up in two months. Consider repeat carotid ultrasound. - -Continue other current medications. -Continue aggressive risk factor modification. -Recommend LDL less than 70. -Encouraged regular exercise and activity. - This note was dictated using Motility Count software. If something is unclear, or does not make sense, please do not hesitate to contact our office at [phone] for clarification. Not available 11/01/2023 13:04:20 12/30/2023 12/30/2023 Doing well. Last echocardiogram was approximately 3 years ago and he has a systolic murmur. We ordered an echo and he is here today for follow-up of this. The echocardiogram shows moderate aortic stenosis. Left ventricular function normal to 70% with diastolic dysfunction. Mild mitral insufficiency and normal pressures in the heart. EKG today shows normal sinus heart rate with a heart rate of [address] and T-wave changes and poor R-wave progression. No change from baseline. Blood pressure and heart rate have been under good control. We will see him back in 4 months. Known mild carotid artery stenosis. Meds and chart reviewed in full today. Carotids can be checked every 2 years. Monitor blood pressure and heart rate. Continue Lipitor. Blood work as per primary care. Continue beta-nam Patient Education was printed, I have reviewed the Past Medical, Family, and Social Histories along with ROS and all orders in today's record, and have noted any changes. Medications, charts and records reviewed in full today. - EKG today reveals normal sinus rhythm with nonspecific ST and T-wave changes and poor R-wave progression - LAST ECHO: 11/14/2023 with an ejection fraction 65-70% with diastolic dysfunction and mild mitral insufficiency. Exxu-mr-cskeymyo aortic stenosis with no aortic insufficiency and normal pressures in the heart LAST ISCHEMIC EVAL: 09/2019 ischemia. LAST HEART CATH: In 2018 PTCA and stenting of the LAD and RCA. LAST LDL: 10/2020 LDL was 51. Followed by PCP. LAST CNI: 11/2022 stable 1% to 39% ICA stenosis bilaterally. CTA neck: 02/2019 left 25% ICA stenosis, and right 30% to 40% ICA stenosis. - Plan: Monitor blood pressure and heart rate Continue beta-nam Continue Lipitor Blood work as per primary care Repeat echocardiogram at the 1 year elaine Carotid ultrasound every 2 years - -Continue other current medications. -Continue aggressive risk factor modification. -Recommend LDL less than 70. -Encouraged regular exercise and activity. - This note was dictated using Motility Count software. If something is unclear, or does not make sense, please do not hesitate to contact our office at [phone] for clarification. [email or web address] Not available 12/30/2023 10:36:56 03/30/2024 03/30/2024 doing well. No cardiac symptoms. No chest pain pressure or tightness. No shortness of breath. EKG from the summer showed nonspecific changes. Last echocardiogram showed normal function. Last cardiac catheterization with stenting to the left anterior descending and right coronary artery. We will recheck a carotid ultrasound at follow-up in the summer. That can be done every 2 years. He has not had any issues. His last ischemic evaluation was in 2019. Overall he feels well. Meds and chart reviewed in full today Patient Education was printed, I have reviewed the Past Medical, Family, and Social Histories along with ROS and all orders in today's record, and have noted any changes. Medications, charts and records reviewed in full today. PLAN: Continue Lipitor Continue nadolol EKG at follow-up Follow-up in Cardiology Clinic in 6 months Monitor blood pressure and heart rate Blood work as per primary care Continue other current medications. Continue aggressive risk factor modification. Recommend LDL less than 70. Encouraged regular exercise and activity. EK12/30/2023 -revealed normal sinus rhythm with nonspecific ST and T-wave changes and poor R-wave progression LAST ECHO: 11/14/2023 with an ejection fraction 65-70% with diastolic dysfunction and mild mitral insufficiency. Hinj-wk-krwtgyax aortic stenosis with no aortic insufficiency and normal pressures in the heart LAST ISCHEMIC EVAL: 09/2019 ischemia. LAST HEART CATH: In 2017 PTCA and stenting of the LAD and RCA. LAST LDL: 10/2020 LDL was 51. Followed by PCP. LAST CNI: 11/2022 stable 1% to 39% ICA stenosis bilaterally. CTA neck: 02/2019 left 25% ICA stenosis, and right 30% to 40% ICA stenosis. ILISA LPN, I AM SCRIBING FOR, AND IN THE OFFICE/PRESENCE OF, KRISTY BELLA MD. IKRISTY M.D. PERFORMED THE SERVICES DESCRIBED IN THIS DOCUMENTATION, SCRIBED BY LISA PHILLIPS LPN IN MY PRESENCE, AND IT IS BOTH ACCURATE AND COMPLETE. This note was dictated using Motility Count software. If something is unclear, or does not make sense, please do not hesitate to contact our office at [phone] for clarification. [email or web address] Not available 03/31/2024 11:39:41 Plan of Treatment Reminders Order Date Submit Date Provider Last Modified By Organization Details Last Modified Time Details Appointments None recorded. Lab None recorded. Referral None recorded. Procedures None recorded. Surgeries None recorded. Imaging electrocard iogram 2023 024 [email or web address] [facility], [address] [place] [address] Dr [address], [place], [address], 4 10:37:34 electrocard iogram 2023 024 [email or web address] [facility], [address] [place] [address] Dr Howell, [place], [address], 4 10:17:26 US, echocardiog nicholas, transthorac ic, complete, w/ color flow 2023 024 hamzah Jimenez ([facility]), [address] [place] [address] , [place], [address], 4 08:00:57 [facility]card [facility] 2022 [facility]23 [email or web address], [address] [place] [address] Dr Howell, [place], [address], 3 11:39:27 US, duplex, carotid artery 2022 023 DUANE Jimenez ([facility]), [address] [place] [address] , [place], [address], 3 14:45:32 electrocard iogram 2022 023 [email or web address] 1 [facility], [address] [place] [address] Dr Howell, [place], [address], 3 10:30:09 Medication Orders nitroglycer in 0.4 mg sublingual tablet 2022 023 [facility] (Now [facility]), [address], [place], [address], 3 12:12:45 Patient TargetsNo targets recorded. Patient InstructionsNo instructions recorded. Reason for Referral None Reported. Results Created Date Observation Date Name Description Value Unit Range Abnormal Flag Note LastModifiedBy Organization Detail LastModifiedTime 10/28/19 elect rocar diogr am No observ ation record ed. DUANE Atkins [address], [place], [address], 10/27/2022 10:11:25 10/28/19 23 10/27/2022 elect rocar diogr am No observ ation record ed. DUANE Bella MD [address] [place] [address] [address], [place], [address], 10/27/2022 11:36:17 11/04/1911/03/2022 US, leo rebolledo, carot id arter y [facility] Name: HALIE BARNARD IX [facility] [employer] [address] Phys: Jena SLATER, [place] [address] : 1940 Age: 82 Sex: M Acct: [id number] Loc: Sean. PHONE #: Exam Date: 2022 Status : REG CLI FAX #: Rad# [id number] Unit# [id number] Admit Date: 2022 EXAMS: CPT CODE: [id number] CAROTI D DUPLEX DOPPLE R [id number] CLINIC AL INFORM ATION: Follow -up caroti d stenos is COMPAR ELMA: 2020 TECHNI QUE: Multip le graysc sweetie sonogr aphic images of the bilate ral caroti d system s were obtain ed in the transv erse and longit udinal planes . Color Dopple r and spectr al wavefo rm analys is were applie d to assess vascul ar flow. All stenos is percen tages are made and refere nced to the distal internal recruiter al caroti d artery . FINDIN GS: On the right, there is scatte red plaque deposi tion throug hout the common caroti d artery , the bifurc ation and the ICA origin . Peak systol ic veloci ties right common , internal recruiter al, and finance business manager al caroti d arteri es are 86, 93 and 101 cm/s respec tively . Distal ICA is tortuo us wavefo joaquin within normal limits . Normal flow right verteb ral and subcla vian arteri es. On the left scatte red plaque throug hout the common caroti d artery and in the ICA origin . Peak systol ic veloci ties left common , internal recruiter al, and finance business manager al caroti d arteri es are 89, 103 at 97 cm/s respec tively . The veloci ty ratios are within normal limits . Normal flow left verteb ral and subcla vian arteri es. IMPRES ALICJA: Genera lly decrea sed veloci ties compar ed to the prior studie s. The ICA veloci ties are now within normal limits . Suspec t this probab ly reflec ts improv ed contro l of hypert ension . Stable 1-39% stenos is both internal recruiter al caroti d arteri es. This report is genera gabriel using voice recogn ition comput er softwa re. Inadve rtent errors may have occurr ed while dictat ing report . Common sense approa ch is apprec iated and do not hesita te to call for clarif icatio n when necess farida. Electr onical ly Signed by Feli Blanco on 2022 at 1422 Report ed and signed by: BRIDGETTE Blanco M.D. PAGE 1 Signed Report (DANILO NUED) [facility] Name: CRISTAL RE,FEL IX [address] Phys: Jena SLATER, [place] [address] : 1940 Age: 82 Sex: M Acct: [id number] Loc: G.US PHONE #: [phone] Exam Date: 2022 Status : REG CLI FAX #: Rad# [id number] Unit# [id number] Admit Date: 2022 EXAMS: CPT CODE: [id number] 673 CAROTI D DUPLEX DOPPLE R [id number] CC: Kristy Bella MD; Onel Boudreaux MD Dictat ed Date/T des: 2022 (1422) Techno logist : ROYCEREBECA LINDA T Transc ribed Date/T des: 2022 (1422) Transc riptio nist: DR.HAR MAR Chavez onic Signat ure Date/T des: 2022 (1422) Printe d Date/T des: 2022 (1445) BATCH NO: N/A PAGE 2 Signed Report CC'ed Logic: Orderi ng Provid er: JENA WAGNER Attend ing Provid er: JENA WAGNER Referr ing Provid er: JENA WAGNER Consul ting Provid er: DORIS WILKERSON [email or web address] , [place], [address], 11/03/2022 14:55:47 05/04/20 23 05/04/2023 elect rocar diogr am No observ ation record ed. DUANE Atkins [address], [place], [address], 05/04/2023 10:51:32 05/04/20 23 05/04/2023 elect rocar diogr am No observ ation record ed. [email or web address] Not Available 2022 11:01:16 05/25/20 elect rocar diogr am No observ ation record ed. [email or web address] Not Available 2022 13:10:58 11/01/19 elect rocar diogr am No observ ation record ed. DUANE Atkins [address], [place], [address], 11/01/2023 09:47:52 11/01/19 24 11/01/2023 elect rocar diogr am No observ ation record ed. [email or web address] Not Available 2023 11:35:35 11/14/19 24 11/14/2023 - ECHO w/spe c/col or flow [facility] Name: HALIE BARNARD IX [address] Phys: [place] [address] : 1940 Age: 83 Sex: M Acct: [id number] Loc: EHSAN PHONE #: Exam Date: 2023 Status : DEP CLI FAX #: Rad# [id number] Unit# [id number] Admit Date: 2023 EXAMS: CPT CODE: [id number] ECHO W/SPEC /COLOR FLOW [id number] Reason for study: Dyspne a Left ventri cular diasto le: 5.6 Left ventri cular systol e: 3.3 Septal wall thickn ess: 1.1 Vending Stand Supervisor ior wall thickn ess: 1.2 Right ventri cular diasto le: 0.8 Left Atrium : 4.4 Aortic root: 3.2 TR veloci ty: 2.39 m/s Impres alicja: 1. Normal left ventri cular chambe r size with normal left ventri cular systol ic functi on. Estima gabriel ejecti on fracti on is 55-70% . There is mild concen tric hypert rophy of the left ventri matthew. There is Dopple r eviden ce for impair ed relaxa tion of the left ventri matthew 2. No segmen scot wall motion abnorm alitie s 3. Mild left atrial enlarg ement, with normal right atrial size 4. Normal right ventri cular size and functi on 5. Mild mitral annula r calcif icatio n with mild calcif icatio n and thicke george of the mitral valve leafle ts. There is normal mitral valve leafle t mobili ty and functi on. There is mild mitral insuff icienc y 6. Modera te calcif icatio n and thicke george of the aortic valve leafle ts with mild to modera te restri ction across the valve. The peak veloci ty across the aortic valve is 2.5 m/s. This signif ies mild to modera te aortic stenos is. There is no aortic insuff icienc y 7. No perica rdial effusi on 8. Normal aortic root 9. Normal tricus pid valve, with tricus pid regurg itant jet veloci ty of 2.39 m/s implyi ng a right ventri cular systol ic pressu re of approx imatel y 34 mmHg Electr onical ly Signed by KRISTY BELLA MD on 2023 at 1329 Report ed and signed by: KRISTY BELLA MD PAGE 1 Signed Report (DANILO NUED) [facility] Name: HALIE BARNARD IX [facility] [employer] Phys: Jinny ford APRN,[place] [address] : 1940 Age: 83 Sex: M Acct: [id number] Loc: EHSAN PHONE #: Exam Date: 2023 Status : DEP CLI FAX #: Rad# [id number] Unit# [id number] Admit Date: 2023 EXAMS: CPT CODE: [id number] ECHO W/SPEC /COLOR FLOW [id number] CC: Mark ford APRN; Onel Boudreaux MD Dictat ed Date/T des: 2023 (1329) Techno logist : CYNTHIA HOWE TER Transc ribed Date/T des: 2023 (1329) Transc riptio nist: ER Electr onic Signat ure Date/T des: 2023 (1329) Printe d Date/T des: 2023 (1332) BATCH NO: N/A PAGE 2 Signed Report CC'ed Logic: Orderi ng Provid er: JINNY COLLINS Attend ing Provid er: JINNY COLLINS Referr ing Provid er: JINNY COLLINS Consul ting Provid er: DORIS WILKERSON [email or web address] [address] [place], [address], 11/15/2023 18:08:35 12/02/19 24 12/02/2023 elect rocar diogr am No observ ation record ed. [email or web address] Not Available 11/04 11:40:54 12/30/19 elect rocar diogr am No observ ation record ed. DUANE Mv [address] Deena, [place], [address], 12/30/2023 10:16:28 12/30/19 24 12/30/2023 elect rocar diogr am No observ ation record ed. [email or web address] Not Available 10:24:48 Result Notes None recorded. Problems Name Problem SNOMED Code Status Onset Date Resolution Date Notes Provider Name and Address Organization Details Recorded Time Coronary arterioscleros is 13854365 Active 2021 Tamiko blanco null, [place] [facility] [place] & [place] 2 17:03:44 Hyperlipidemia 28678157 Active 2021 Tamiko Segura n [place], [place] [facility] [place] 2 17:03:53 Diabetes mellitus 29502822 Active 2021 Tamiko Juanitoo n null, [place] [facility] [place] 2 17:04:00 Hypertensive heart disease 52211044 Active 2021 Tamiko Segura n [place] [facility] [place] 2 17:04:12 Coronary artery stenosis 702235772 Active 2021 Tamiko Segura n [place], [place] [facility] [place] 2 17:04:28 Bradycardia 73342209 Active 2021 Tamiko Imelda n [place], [place] [facility] [place] 2 17:04:39 Bilateral carotid artery occlusion 180461652 Active 2022 Kristy Bella MD [address] [place] [address],[place] [address], [place], [address] [facility] [place] [facility] [place] & [place] 3 10:29:54 Diastolic dysfunction 9282194 Active 2022 Kristy Bella MD [facility] [employer] [address], [place], [address], [place] [facility] & [place] 3 10:31:37 Type 2 dia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 907033899 Active 2022 Kristy Bella MD [address] [place] [address],[address], [place], [address], [place] [facility] & [place] 3 10:31:54 Essential hypertension 31661843 Active 2023 Kristy Bella MD [address] [place] [address],[address], [place], [address], [place] [facility] & [place] 4 10:33:30 Systolic murmur 26791537 Active 2023 Kristy Bella MD [facility] [employer] [facility],[address], [place], [address], [place] [facility] & [place] 4 10:33:30 Dyspnea on exertion 91212848 Active 2023 Kristy Bella MD [address] [place] [address],[address], [place], [address], [place] [facility] & [place] 4 10:33:30 Aortic valve stenosis 09534226 Active 2023 Kristy Bella MD [facility] [employer] [facility],[address], [place], [address], [place] [facility] & [place] 4 10:37:03 Problem Notes None recorded. Procedures Surgical History Date Name Laterality Status Provider Name and Address Organization Details Recorded Time 018 Cardiac Catheterization completed Michellelevi Chavezes [place] - [facility] - [place] & [place] 10/23/2022 10:23:34 015 Cardiac Catheterization completed Michelle Chavezes [place] [facility] & [place] 10/23/2022 10:11:33 013 Cardiac Catheterization completed Michelle Norberto [place] [facility] & [place] 10/23/2022 10:25:26 Appendectomy completed Tamiko Abraham [place] [facility] & [place] 04/29/2022 17:05:40 Imaging Results None recorded. Procedure Notes None recorded. Medical Equipment None Reported. Allergies No known drug allergies Medications Name Sig Start Date Stop Date Status Note LastModified by Organization Details LastModified Time losartan 50 mg tablet 03/30 completed Not Available Not Available Not Available cyclobenzap rine 10 mg tablet TAKE 1 TABLET BY MOUTH THREE (3) TIMES DAILY active Not Available Not Available No t Available atorvastati n 40 mg tablet TAKE 1 TABLET AT BEDTIME 2023 active Not Available Not Available Not Avai lable torsemide 20 mg tablet TAKE 1 TABLET BY MOUTH EVERY DAY (INSTEAD OF LASIX) 03/30 completed Not Available Not Available Not Available cephalexin 250 mg capsule TAKE ONE (1) CAPSULE BY MOUTH EVERY 8 HOURS FOR 10 DAYS 12/29 completed Not Available Not Available Not Available hydrocodone 5 mg-acetamin ophen 325 mg tablet TAKE 1 TABLET BY MOUTH DAILY NEEDED FOR PAIN 03/30 completed Not Available Not Available Not Available glipizide 10 mg tablet 10/31 completed Not Available Not Available Not Available Anucort-HC 25 mg suppository INSERT ONE (1) SUPPOSITO RY RECTALLY TWICE DAILY 10/31 completed Not Available Not Available Not Available acyclovir 400 mg tablet Take 1 tablet every day by oral route as directed for 90 days. active Not Available Not Available No t Available omeprazole 40 mg capsule,del ayed release 10/31 completed Not Available Not Available Not Available Sudogest 30 mg tablet TAKE TWO (2) TABLETS BY MOUTH EVERY SIX (6) HOURS NEEDED FOR NASAL CONGESTIO N; DO NOT EXCEED FOUR (4) DOSES IN 24 HOURS 05/04 completed Not Available Not Available Not Available levothyroxi ne 25 mcg tablet Take 1 tablet every day by oral route as directed for 90 days. active Not Available Not Available No t Available trifluridin e 1 % eye drops INSTILL 1 DROP INTO LEFT EYE EVERY 2 HOURS WHILE AWAKE 10/31 completed Not Available Not Available Not Available nadolol 20 mg tablet Take 1 tablet every day by oral route as directed for 90 days. active Not Available Not Available No t Available hydrocortis one 2.5 % topical cream with perineal applicator INSERT ONE (1) APPLICATO RFUL RECTALLY ONCE TO TWICE DAILY NEEDED FOR HEMORRHOI DS 10/31 completed Not Available Not Available Not Available potassium chloride ER 20 mEq tablet,exte nded release(par t/cryst) 10/31 completed Not Available Not Available Not Available prednisolon e acetate 1 % eye drops,suspe nsion INSTILL 1 DROP INTO LEFT EYE 4 TIMES DAILY 10/31 completed Not Available Not Available Not Available benzonatate 100 mg capsule TAKE ONE (1) TO TWO (2) CAPSULES BY MOUTH THREE TIMES DAILY NEEDED FOR COUGH 05/04 completed Not Available Not Available Not Available pantoprazol e 40 mg tablet,dena yed release 10/31 completed Not Available Not Available Not Available erythromyci n 5 mg/gram (0.5 %) eye ointment 05/04 completed Not Available Not Available Not Available metformin 1,000 mg tablet Take 1 tablet twice a day by oral route as directed for 90 days. active Not Available Not Available No t Available nitroglycer in 0.[address] one tablet sublingua lly every 5 minutes as needed for chest pain for three doses. active Not Available Not Available No t Available lisinopril 5 mg tablet Take 1 tablet every day by oral route as directed for 90 days. active Not Available Not Available No t Available acyclovir 200 mg capsule TAKE ONE (1) CAPSULE BY MOUTH FIVE (5) TIMES A DAY. TAKE UNTIL ALL CAPSULES ARE GONE. 12/29 completed Not Available Not Available Not Available polyethylen e glycol 3350 17 gram/dose oral powder DISSOLVE 17 GM (1 CAPFUL) IN 4-8 OZ OF LIQUID ONCE DAILY 10/31 completed Not Available Not Available Not Available levofloxaci n 500 mg tablet TAKE 1 TABLET BY MOUTH EVERY DAY FOR 10 DAYS 10/27 completed Not Available Not Available Not Available methylpredn isolone 4 mg tablets in a dose pack TAKE DIRECTED PER PACKAGE 05/04 completed Not Available Not Available Not Available pioglitazon e 30 mg tablet 10/31 completed Not Available Not Available Not Available loratadine 10 mg tablet TAKE ONE (1) TABLET BY MOUTH ONCE DAILY NEEDED FOR ALLERGIC SYMPTOMS 10/31 completed Not Available Not Available Not Available spironolact one 50 mg tablet 10/31 completed Not Available Not Available Not Available tobramycin 0.3 %-dexametha sone 0.1 % eye drops,suspe nsion PUT ONE DROP INTO THE LEFT EYE FOUR (4) TIMES DAILY FOR 7 DAYS 12/29 completed Not Available Not Available Not Available Mucinex 600 mg tablet, extended release TAKE ONE (1) TABLET BY MOUTH EVERY 12 HOURS NEEDED FOR CONGESTIO N 10/31 completed Not Available Not Available Not Available azithromyci n 500 mg tablet TAKE 1 TABLET BY MOUTH EVERY DAY FOR 3 DAYS 10/27 completed Not Available Not Available Not Available ketorolac 0.4 % eye drops STARTING THREE (3) DAYS BEFORE SURGERY, USE ONE (1) DROP IN THE OPERATIVE EYE FOUR TIMES A DAY FOR 10 DAYS THEN DECREASE TO TWICE DAILY FOR 14 DAYS 12/29 completed Not Available Not Available Not Available peg 3350-electr olytes 236 gram-22.74 gram-6.74 gram-5.86 gram solution 10/27 completed Not Available Not Available Not Available Accu-Chek Jess Plus test strips active Not Available Not Available Not Available lidocaine 5 % topical ointment APPLY TO AFFECTED AREA EVERY DAY 10/31 completed Not Available Not Available Not Available Paxlovid 300 mg (150 mg x 2)-100 mg tablets in a dose pack TAKE TWO 150 MG TABLETS OF NIRMATREL VIR WITH ONE 100 MG TABLET OF RITONAVIR TWICE DAILY FOR FIVE (5) DAYS BY MOUTH 05/04 completed Not Available Not Available Not Available Vitals Date Recorded Body height Body mass index (BMI) Body weight Oxygen saturation Oxygen saturation in Arterial blood by Pulse oximetry Heart rate Systolic blood pressure Diastolic blood pressure Provider Name and Address Organization Details Last Updated DateTime 3 160.02 cm 34.2 kg/m2 83016.0 5 g 96 % 96 % 50 /min 110 mm[Hg] 64 mm[Hg] Tamiko blanco [place] - [facility] - [place] & [place] 3 10:17:57 Date Recorded Body height Body mass index (BMI) Body weight Oxygen saturation Oxygen saturation in Arterial blood by Pulse oximetry Heart rate Systolic blood pressure Diastolic blood pressure Provider Name and Address Organization Details Last Updated DateTime 4 160.02 cm 33.1 kg/m2 56384.7 7 g 96 % 96 % 58 /min 142 mm[Hg] 76 mm[Hg] Lisa Phillips [place] - [facility] & [place] 4 09:42:38 Date Recorded Body height Body mass index (BMI) Body weight Oxygen saturation Oxygen saturation in Arterial blood by Pulse oximetry Heart rate Systolic blood pressure Diastolic blood pressure Provider Name and Address Organization Details Last Updated DateTime 4 160.02 cm 33.1 kg/m2 12033.7 7 g 97 % 97 % 61 /min 112 mm[Hg] 74 mm[Hg] Tamiko blanco [place] - [facility] & [place] 4 10:18:56 Date Recorded Body height Body mass index (BMI) Body weight Oxygen saturation Oxygen saturation in Arterial blood by Pulse oximetry Heart rate Systolic blood pressure Diastolic blood pressure Provider Name and Address Organization Details Last Updated DateTime 4 160.02 cm 32.6 kg/m2 70542 g 96 % 96 % 67 /min 118 mm[Hg] 74 mm[Hg] Maloriefrancis Prado [place] - [facility] & [place] 4 09:26:57 Date Recorded Body height Body mass index (BMI) Body weight Oxygen saturation Oxygen saturation in Arterial blood by Pulse oximetry Heart rate Systolic blood pressure Diastolic blood pressure Provider Name and Address Organization Details Last Updated DateTime 3 160.02 cm 34 kg/m2 66529.7 4 g 97 % 97 % 58 /min 120 mm[Hg] 70 mm[Hg] Tamiko blanco [place] - [facility] & [place] 3 10:51:14 Social History None recorded. Functional Status Question Answer Note LastModified by Organizat ion Details LastModified Time Do you use any illicit or recreational drugs? No [email or web address] Information not available 04/29/2022 What is your level of alcohol consumption? None [email or web address] Information not available 04/29/2022 Mental Status None recorded. Family History Relationship Description Onset Age of this Age Resolved Age Notes LastModified by Organization Details LastModified Time Father Parkinson's disease natalie Not available 17:05:07 Medical History Condition Response Coronary Artery Disease Y Hyperlipidemia Y Heart Disease Y Cancer Y Hypertension Y Past Encounters Encounter ID Performer Location Encounter Start Date Encounter Closed Date Diagnosis/Indication Diagnosis SNOMED-CT Code Diagnosis ICD10 Code Diagnosis Note [id number] Kristy Bella MD [address] [place] [address] 04/29/2022 08:32:22 04/29/2022 09:09:17 Coronary arteriosclerosis 48748458 I25.10 Carotid ar carmela stenosis 96071975 I65.23 Essential hypertension 29025370 I10 Hyperlipidemia 22967343 E78.5 Bradycardia 02552693 R00 .1 Mitral soham ve regurgitation 30100770 I34.0 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 470475732 E11.9 [id number] Kristy Bella MD [address] [place] [address] 10/27/2022 09:35:10 10/27/2022 10:30:09 Essential hypertension 29426340 I10 Bilateral carotid artery occlusion 488892618 I65.23 Bradycardia 99709244 R00 .1 Coronary arteriosclerosis 15253885 I25.10 Hyperlipidemia 71629577 E78.5 Diastolic dysfunction 35 09979 I51.9 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 462783538 E11.9 [id number] LEIDA WILLIS NP, S [address] [place] [address] 05/04/2023 10:31:25 05/04/2023 11:27:05 Essential hypertension 62955987 I10 Bilateral carotid artery occlusion 743156233 I65.23 Bradycardia 11639308 R00 .1 Coronary arteriosclerosis 86995825 I25.10 Hyperlipidemia 49276769 E78.5 Diastolic dysfunction 35 22108 I51.9 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 256242718 E11.9 [id number] LEIDA WILLIS NP, S [address] [place] [address] 11/01/2023 08:56:20 11/01/2023 10:17:39 Essential hypertension 96365710 I10 Dyspnea on exertion 6084 5006 R06.09 Systolic murmur 84183794 R01.1 Bilateral carotid artery occlusion 946518949 I65.23 Bradycardia 67918280 R00 .1 Coronary arteriosclerosis 34330808 I25.10 Hyperlipidemia 80771751 E78.5 Diastolic dysfunction 35 30713 I51.9 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 618286954 E11.9 [id number] Kristy Bella MD [address] HUBBARD [address] [place] [address] 6 12/30/2023 09:46:14 12/30/2023 10:25:59 Bradycardia 30094218 R00.1 Essential hypertension 94527620 I10 Systolic murmur 50510449 R01.1 Bilateral carotid artery occlusion 408220108 I65.23 Coronary arteriosclerosis 11439633 I25.10 Hyperlipidemia 56193315 E78.5 Diastolic dysfunction 35 21250 I51.9 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 164979634 E11.9 Aortic valve stenosis 60 101703 I35.0 [id number] Kristy Bella MD [address] HUBBARD [address] [place] [address] 6 03/30/2024 09:07:32 03/30/2024 09:56:01 Bradycardia 51957050 R00.1 Essential hypertension 47851824 I10 Systolic murmur 74690277 R01.1 Bilateral carotid artery occlusion 414602440 I65.23 Coronary arteriosclerosis 41740366 I25.10 Hyperlipidemia 98242653 E78.5 Diastolic dysfunction 35 99898 I51.9 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 233767661 E11.9 Aortic valve stenosis 60 764541 I35.0 Health Concerns Section Related Observation LastModified by Organization Detai ls LastModified Time None Recorded Concern Status LastModified by Organization Details LastModified Time None Recorded Advance Directives Directive None Recorded Payers Insurance Date Sequence Insurance Name Policy Number Policy Roy Covered Member ID Roy Member ID Guarantor Name 09/24/2024 1 [employer] (MEDICARE REPLACEMENT/ ADVANTAGE - PPO) Jose Alfredo Nilda [id number] Jose Alfredo Nilda Notes Date Note Type Note Provider Name and Address Organization Details Recorded Time 10/27/2022 text/html doing well. No c hest pain or pressure. No shortness of breath. Overall feels well Kristy Bella MD [address] [place] [address],[address], [place], [address], [facility] & [place] 10/27/2022 12:09:44 05/04/2023 text/html Jose Alfredo is an 82-year-old male who is seen today in follow-up. The patient has a history significant for hypertension, hyperlipidemia, coronary artery disease, carotid artery stenosis, diastolic dysfunction of left ventricle, as well as diabetes mellitus. Since our last visit, the patient had a carotid ultrasound that had actually improved. This is thought to be related to improved blood pressure control. The patient's bilateral ICA stenosis is in the 1% to 39% ICA stenosis range. The patient needs refilled nitroglycerin. The patient has no cardiovascular or cardiopulmonary complaints. His nitroglycerin is just old. LEIDA WILLIS NP, S [address] [place] [address],[address], [place], [address], [facility] & [place] 05/04/2023 12:13:11 11/01/2023 text/html Jose Alfredo is an 83-year-old male who is seen today in follow-up. The patient has a history significant for hypertension, hyperlipidemia, coronary artery disease, carotid artery stenosis, diastolic dysfunction of left ventricle, as well as diabetes mellitus. Since our last visit, the patient reports that he has been feeling reasonably well. The patient does have some exertional shortness of breath intermittently that improves with rest. The patient has no other cardiovascular or cardiopulmonary complaints. The patient did have issues with hemorrhoidal bleeding earlier this year although this has improved. The patient also feels like he sleeps poorly at times. He is following up with his primary care provider regarding insomnia. LEIDA WILLIS NP, S [address] [place] [address],[address], [place], [address], [facility] & [place] 11/01/2023 13:05:47 12/30/2023 text/html Doing well. No c hest pain pressure or tightness. No shortness of breath. Here today to go over echocardiogram results. Overall feels well Kristy Bella MD [address] [place] [address],[address], [place], [address], [place] - [facility] & [place] 12/30/2023 10:37:37 03/30/2024 text/html doing well. He i s here for 4 month follow-up. No chest pain pressure or tightness. No shortness of breath Kristy Bella MD [address] [place] [address],[address], [place], [address], [place] - [facility] & [place] 03/31/2024 11:39:56
--- OUTSIDE RECORDS SUMMARY | 2024-12-13 10:55 | XMS_ITS | Continuity of Care Document ---
Author Organization [facility] Address [address] [place] [address] Phone Care Team Providers Care [employer] Name Role Phone Onel Boudreaux MD Primary Care Provider [phone] Encounters Date Type Department Care Team Description 2 1:10 AM EST - 2 3:29 PM EST Hospital Encounter [facility] 6D [facility] [place] [address] Loly Andujar MD Bazydlo, Kenneth C, MD Upper GI bleed (Primary Dx); Melena Discharge Disposition: Home or Self Care 2 Travel 9 Telephone [facility] [address] [place] [address] Gabriela Christie 9 11:42 PM EST - 9 1:49 PM EDT Hospital Encounter [place] [address] Shmuel Rapp MD Discharge Disposition: Home Health Care Svc 9 1:50 PM EST Anesthesia Event [facility] ENDOSCOPY [facility] [address] [place] [id number] Peace Cheng MD 9 1:00 PM EST - 9 1:15 PM EST Surgery [facility] ENDOSCOPY [facility] [place] [address] Asha Jackson MD ESOPHAGOGASTRODUODENOSCOPY (ANESTHESIA) 5 12:59 AM EST - 5 5:02 AM EST Emergency [facility] [address] [place] [address] Taco Pelayo MD Acute asthmatic bronchitis, mild intermittent (Primary Dx) Discharge Disposition: Home or Self Care Allergies Active Allergy Reactions Criticality Noted Date Comments Empagliflozin Other (See Comments) 05/30/2022 Yeast infection Medications LEVOthyroxine (SYNTHROID) 25 mcg Oral Tablet Take 25 mcg by mouth daily. Active nadolol (CORGARD) 40 mg Oral Tablet Take 1 Tab by mouth daily. 30 Tab 2 09/14/2018 Active potassium chloride SA (K-DUR;KLOR-CON) 20 mEq Oral Tab Sust.Rel. Particle/Crystal Take 1 Tab by mouth daily. 30 Tab 1 09/13/2018 Active lisinopriL (PRINIVIL;ZESTRI L) 5 mg Oral Tablet Take 5 mg by mouth daily. Active pioglitazone (ACTOS) 30 mg Oral Tablet Take 30 mg by mouth daily. Active spironolactone (ALDACTONE) 50 mg Oral Tablet Take 50 mg by mouth daily. Active atorvastatin (LIPITOR) 10 mg Oral Tablet Take 10 mg by mouth daily. Active glipiZIDE (GLUCOTROL) 10 mg Oral Tablet Take 10 mg by mouth daily (with breakfast). Active torsemide (DEMADEX) 20 mg Oral Tablet Take 20 mg by mouth daily. Active Active Problems Problem Noted Date Diagnosed Date Melena 05/30/2022 Hypothyroidism 05/30/2022 GI bleed 09/06/2018 GIOVANNY (acute kidney injury) 09/06/2018 CAD (coronary artery disease) 09/06/2018 Diabetes mellitus type 2 in obese 09/06/2018 Obese 09/06/2018 Cirrhosis 09/06/2018 Normocytic anemia 09/06/2018 Elevated LFTs Chronic gastric ulcer withou t hemorrhage and without perforation Esophagitis Esophageal varices without bleeding Resolved Problems Problem Noted Date Diagnosed Date Resolved Date Upper GI bleed 05/30/2022 05/30/2022 Prostate cancer 09/06/2018 05/30/2022 Family History Medical History Relation Name Comments Heart Disease Brother Cancer Sister Heart Disease Sister Relation Name Status Comments Brother Sister Social History Smoking Status as of 12/13/2024 Tobacco Use Types Packs/Day Years Used Date Smoking Tobacco: Never Assessed Sex and Gender Information Value Date Recorded Sex Assigned at Not on file Legal Sex Male 12:34 AM EST Gender Identity Not on file Sexual Orientation Not on file Last Filed Vital Signs Vital Sign Reading Time Taken Comments Blood Pressure 108/58 06/01/2022 11:18 AM EST Pulse 59 06/01/2022 11:18 AM EST Temperature 36.7 C (98 F) 06/01/2022 11:18 AM EST Respiratory Rate 18 06/01/2022 11:18 AM EST Oxygen Saturation 97% 06/01/2022 11:18 AM EST Inhaled Oxygen Concentration - - Weight 83.9 kg (185 lb) 05/30/2022 9:23 PM EST Height 152.4 cm (5') 05/30/2022 9:23 PM EST Body Mass Index 36.13 05/30/2022 9:23 PM EST Plan of Treatment Not on file Procedures Procedure Name Priority Date/Time Associated Diagnosis Comments EK EKG 12 LEAD Routine 06/01/2022 11:03 AM EST BASIC METABOLIC PANEL Early AM 06/01/2022 7:29 AM EST CBC WITH DIFF Early AM 06/01/2022 7:29 AM EST ECG AND WAVEFORMS - TELEMETRY Routine 06/01/2022 7:00 AM EST GLUCOSE METER POC Routine 06/01/2022 6:12 AM EST GLUCOSE METER POC Routine 06/01/2022 12:50 AM EST ECG AND WAVEFORMS - TELEMETRY Routine 05/31/2022 7:00 PM EST GLUCOSE METER POC Routine 05/31/2022 5:49 PM EST ECG AND WAVEFORMS - TELEMETRY Routine 05/31/2022 2:59 PM EST GLUCOSE METER POC Routine 05/31/2022 11:26 AM EST GLUCOSE METER POC Routine 05/31/2022 9:34 AM EST BASIC METABOLIC PANEL Early AM 05/31/2022 7:08 AM EST CBC WITH DIFF Early AM 05/31/2022 7:08 AM EST ECG AND WAVEFORMS - TELEMETRY Routine 05/31/2022 7:04 AM EST GLUCOSE METER POC Routine 05/31/2022 5:19 AM EST GLUCOSE METER POC Routine 05/31/2022 1:38 AM EST ECG AND WAVEFORMS - TELEMETRY Routine 05/30/2022 10:21 PM EST HEMOGLOBIN AND HEMATOCRIT Routine 2021 8:47 PM EST POTASSIUM REPEAT Routine 05/30/2022 8:47 PM EST GLUCOSE METER POC Routine 05/30/2022 4:52 PM EST TSH REFLEX TO FT4 Routine 05/30/2022 11:03 AM EST RETICULOCYTE PANEL DIAGNOSTIC Routine 05/30/2022 11:03 AM EST BASIC METABOLIC PANEL Early AM 05/30/2022 11:03 AM EST CBC WITH DIFF Early AM 05/30/2022 11:03 AM EST HEMOGLOBIN A1C Early AM 05/30/2022 11:03 AM EST IP CONSULT TO GI Routine 05/30/2022 4:55 AM EST Procedure Note - Mickie Samuels MD - 05/31/2022 10:18 AM ESTThis note is in progress. GI Consultation: Jose Alfredo Munguia Jr. is a 81 y.o. male asked to see us in consultation Onel Coley MD & Ronnie Garcia MD for evaluation of GIB. Mr. Munguia is a 81 year old male with past medical history of livercirrhosis diagnosed in 2019, unclear cause per family, no history ofalcohol use, CAD s/p stenting not on antiplatelet medication and prostatecancer s/p radiation. Seen by our service in 2019 at the time of hisdiagnosis of cirrhosis for hematemesis. Underwent EGD with findings of agastric ulcer, moderate erosive esophagitis and small lower esophagealvarices. No active bleeding at the time. Has not followed up with ourservice as he sees a liver specialist at [facility] in [place]. Presented to the ER with reports of black stool that began 5 days ago.Last bowel movement was actually 2 days ago. Denies diarrhea. Nohematemesis. No abdominal pain. No NSAID use. He had a recent colonoscopy and EGD in [place], within the past 2weeks. States there were no findings on his upper endoscopy. He hadnumerous colon polyps. His daughter is bringing up his reports. His Hgb was 12.6 on admission, 11.9 this morning. Vital signs are stable.BUN is not elevated. Medications Prior to Admission Medication Sig Dispense Refill Last Dose atorvastatin (LIPITOR) 10 mg Oral Tablet Take 10 mg by mouth daily.05/29/2022 glipiZIDE (GLUCOTROL) 10 mg Oral Tablet Take 10 mg by mouth daily (withbreakfast). 05/29/2022 LEVOthyroxine (SYNTHROID) 25 mcg Oral Tablet Take 25 mcg by mouth daily.05/29/2022 lisinopriL (PRINIVIL;ZESTRIL) 5 mg Oral Tablet Take 5 mg by mouth daily.05/29/2022 nadolol (CORGARD) 40 mg Oral Tablet Take 1 Tab by mouth daily. 30 Tab pioglitazone (ACTOS) 30 mg Oral Tablet Take 30 mg by mouth daily.05/29/2022 potassium chloride SA (K-DUR;KLOR-CON) 20 mEq Oral Tab Sust.Rel.Particle/Crystal Take 1 Tab by mouth daily. 30 Tab 1 05/29/2022 spironolactone (ALDACTONE) 50 mg Oral Tablet Take 50 mg by mouth daily.05/29/2022 torsemide (DEMADEX) 20 mg Oral Tablet Take 20 mg by mouth daily.05/29/2022 Medication: atorvastatin 10 mg Oral Daily cefTRIAXone (ROCEPHIN) IVPB (Orderable) 1 g Intravenous Daily insulin aspart U-100 1-10 Units Subcutaneous 4 times per day LEVOthyroxine 25 mcg Oral DAILY EARLY AM lisinopriL 5 mg Oral Daily miconazole Topical BID nadoloL 40 mg Oral Daily pantoprazole (PROTONIX) 40 mg Intravenous 2 times per day potassium chloride 20 mEq Oral Daily spironolactone 50 mg Oral Daily torsemide 20 mg Oral Daily 0.45 % NaCl with KCl 20 mEq octreotide (SandoSTATIN) infusion 50 mcg/hr (05/31/22 0713) Allergies: Allergies Allergen Reactions Jardiance [Empagliflozin] Other (See Comments) Yeast infection Immunizations: There is no immunization history on file for this patient. Family history, past medical history, and social history are reviewedas below. Past Medical History: Past Medical History: Diagnosis Date CAD (coronary artery disease) 3 stents Diabetes mellitus (HCC) borderline Hyperlipidemia Liver disease Prostate cancer (HCC) Tx with radiation around 2011 Past Surgical History: Past Surgical History: Procedure Laterality Date APPENDECTOMY CARDIAC CATHETERIZATION 3 stents LIPOMA RESECTION 1998 UPPER GASTROINTESTINAL ENDOSCOPY N/A 09/07/2018 ESOPHAGOGASTRODUODENOSCOPY ; Surgeon: Asha Jackson MD;Location: [facility]; Service: Endoscopy Family History: Family History Problem Relation Age of Onset Heart Disease Sister Cancer Sister Heart Disease Brother Social History: Social History Tobacco Use Smoking status: Former Packs/day: 1.50 Years: 31.00 Pack years: 46.50 Types: Cigarettes Start date: 07/05/1992 Quit date: 2004 Years since quittin.9 Smokeless tobacco: Never Substance Use Topics Alcohol use: No Comment: 05/20/22: He quit drinking 20 years ago. He would mostly drinkFriday night. Drug use: No ROS Constitutional: Denies fever,sweats, chills or weight loss Eyes: Denies change in visual acuity HENT: Denies hearing loss or dizziness Respiratory: Denies cough or shortness of breath Cardiovascular: Denies edema or chest pain : Denies dysuria, hematuria, urgency or frequency Musculoskeletal: Denies back pain or joint pain Integument: Denies rash Neurologic: Denies headache, previous stroke, TIA, confusion Endocrine: Denies polyuria or polydipsia Lymphatic: Denies swollen glands Psychiatric: Denies depression or anxiety Hematologic: Denies previous anemia or easy bruising All other review of systems negative, except for those noted. PHYSICAL EXAM: VITAL SIGNS: BP 108/62 (BP Location: Right arm, Patient Position: SemiFowlers) Pulse 51 Temp 97.3 F (36.3 C) (Oral) Resp 18 Ht 5'(1.524 m) Wt 185 lb (83.9 kg) SpO2 91% BMI 36.13 kg/m Date 05/31/22 0700 - 06/01/22 0659 Shift 7181-4598 2105-9523 1837-3352 24 Hour Total INTAKE I.V.(mL/kg/hr) 332.9 332.9 IV Piggyback 513 513 Shift Total(mL/kg) 845.9(10.1) 845.9(10.1) OUTPUT Shift Total(mL/kg) Weight (kg) 83.9 83.9 83.9 83.9 Constitutional: Well developed. Well nourished. Non-toxic appearance.No acute distress. HENT: Normocephalic. Atraumatic. Bilateral external ears normal,Oropharynx moist. No oral exudate. Nose normal. Eyes: No Scleral icterus Neck: No Cervical or supraclavicular nodes Lymphatic: No lymphadenopathy noted. Cardiovascular: NRRR Thorax & Lungs: Non labored at rest, no respiratory distress Abdomen: + BS, soft, NT. No guarding, rebound tenderness. No hepatomegaly.No splenomegaly. No ascites Rectal: Deferred. Skin: Warm, dry. No erythema. No rash. Extremities: Intact distal pulses, No deformity. No edema. Neurologic: Alert & oriented x 3 RESULTS Lab Results Component Value Date ALT 28 05/29/2022 AST 34 05/29/2022 ALKPHOS 63 05/29/2022 BILIDIR <0.2 09/10/2018 PROT 7.7 05/29/2022 INR 1.22 (H) 05/30/2022 AMYLASE 10 (L) 09/07/2018 LIPASE 8 (L) 09/07/2018 Lab Results Component Value Date WBC 6.3 05/31/2022 HGB 11.9 (L) 05/31/2022 HCT 36.5 (L) 05/31/2022 MCV 91.9 05/31/2022 PLT 177 05/31/2022 Lab Results Component Value Date CREATININE 1.09 05/31/2022 BUN 16 05/31/2022 NA 133 (L) 05/31/2022 K 4.2 05/31/2022 CL 96 (L) 05/31/2022 CO2 30 (H) 05/31/2022 IMAGES No results found. Assesment: 1. Melena. No overt bleeding in 2 days. Hgb stable, no significant dropfrom admission. Do not suspect active bleeding. Recent endoscopyreportedly normal. 2. Liver cirrhosis decompensated in the past by [facility] specialist in [place]. He is nadolol. 3. Hx PUD, GERD. Plan: 1. Do not feel he needs another endoscopy at this time unless he hasevidence of active bleeding. Will review his EGD report. 2. Can stop Octreotide. 3. IV PPI bid. 4. Recheck H&H this evening in AM. 5. Can have diet today, NPO midnight in event clinical course changes. 6. He should have a complete liver work-up for his cirrhosis if notcompleted and referral for liver transplant. As he sees a specialistalready will defer doing this here. 1. The patient indicates understanding of these issues and agrees withthe plan. 2. I reviewed the patient's medical information and medical history. 3. I have reviewed the past medical, family, and social history sectionsincluding the medications and allergies listed in the above medicalrecord. Electronically signed by: Latasha Fernandez APRN, 05/31/2022 10:18 AM SEP Gastroenterology I have evaluated and examined the patient along with the NursePractitioner and agree with the documentation and plan aside from thechanges noted below. Laying in bed comfortably. at bedside. Nocomplaints currently. Daughter bringing his recent scope reports today. Exam: CONSTITUTIONAL: No apparent distress, and appears stated age HEENT: AT/NC, b/l nares patent, MMM, b/l external ears normal RESPIRATORY: No increased work of breathing, no cough GI: Non-distended MUSCULOSKELETAL: There is no redness, warmth, or swelling of thevisualized joints. SKIN: Normal skin color, texture, turgor, no jaundice. NEUROLOGIC: No tremors or seizure activity noted. Plan: Agree with plan as above. Will review outside procedure reports, monitorclosely while inpatient overnight through tomorrow. IV PPI BID, but maydiscontinue octreotide as not likely variceal bleed. Okay for diet today. Mickie Samuels MD SEP Gastroenterology 05/31/2022 11:17 PM URINALYSIS STAT 05/30/2022 4:05 AM EST UA W/REFLEX TO CULTURE STAT 4:05 AM EST EXTRA PRETTY URINE CX STAT 05/30/2022 4:05 AM EST BB HISTORY CHECK STAT 05/30/2022 3:56 AM EST ANTIBODY SCREEN IGG STAT 05/30/2022 3:56 AM EST ABORH STAT 05/30/2022 3:56 AM EST TYPE AND SCREEN STAT 05/30/2022 3:56 AM EST PT / INR STAT 05/30/2022 3:56 AM EST ADMIT STAT 05/30/2022 3:47 AM EST COMPREHENSIVE METABOLIC PANEL STAT 05/29/2022 9:57 PM EST CBC STAT 05/29/2022 9:57 PM EST GLUCOSE METER POC Routine 09/13/2018 11:48 AM EDT GLUCOSE METER POC Routine 09/13/2018 8:18 AM EDT XR CHEST PA AND LATERAL Routine 09/14/19 5:51 AM EDT CBC WITH DIFF Early AM 09/13/2018 5:41 AM EDT ECG AND WAVEFORMS - TELEMETRY Routine 09/13/2018 5:00 AM EDT GLUCOSE METER POC Routine 09/12/2018 8:33 PM EDT ECG AND WAVEFORMS - TELEMETRY Routine 09/12/2018 5:57 PM EDT GLUCOSE METER POC Routine 09/12/2018 5:20 PM EDT BASIC METABOLIC PANEL Routine 09/12/2018 12:45 PM EDT CBC WITH DIFF Routine 09/12/2018 12:45 PM EDT GLUCOSE METER POC Routine 09/12/2018 12:44 PM EDT GLUCOSE METER POC Routine 09/12/2018 9:19 AM EDT ECG AND WAVEFORMS - TELEMETRY Routine 09/12/2018 4:29 AM EDT GLUCOSE METER POC Routine 09/11/2018 9:44 PM EDT GLUCOSE METER POC Routine 09/11/2018 5:47 PM EDT ECG AND WAVEFORMS - TELEMETRY Routine 09/11/2018 4:53 PM EDT GLUCOSE METER POC Routine 09/11/2018 11:51 AM EDT GLUCOSE METER POC Routine 09/11/2018 8:55 AM EDT BASIC METABOLIC PANEL Routine 09/11/2018 6:49 AM EDT CBC WITH DIFF Routine 09/11/2018 6:48 AM EDT ECG AND WAVEFORMS - TELEMETRY Routine 09/11/2018 5:17 AM EDT GLUCOSE METER POC Routine 09/10/2018 9:19 PM EST GLUCOSE METER POC Routine 09/10/2018 5:28 PM EST ECG AND WAVEFORMS - TELEMETRY Routine 09/10/2018 5:03 PM EST GLUCOSE METER POC Routine 09/10/2018 1:47 PM EST GLUCOSE METER POC Routine 09/10/2018 7:55 AM EST IRON/UIBC Add-On 09/10/2018 7:41 AM EST PT / INR Routine 09/10/2018 7:41 AM EST HEPATIC FUNCTION PANEL Routine 9 7:41 AM EST BASIC METABOLIC PANEL Routine 09/10/2018 7:41 AM EST CBC WITH DIFF Routine 09/10/2018 7:41 AM EST ECG AND WAVEFORMS - TELEMETRY Routine 09/10/2018 6:08 AM EST ECG AND WAVEFORMS - TELEMETRY Routine 09/10/2018 12:25 AM EST GLUCOSE METER POC Routine 09/09/2018 8:32 PM EST PT / INR Timed 09/09/2018 7:35 PM EST GLUCOSE METER POC Routine 09/09/2018 4:58 PM EST FL MODIFIED BARIUM SWALLOW NAOMI 09/09 3:53 PM EST HEMOGLOBIN AND HEMATOCRIT Timed 2018 12:44 PM EST GLUCOSE METER POC Routine 09/09/2018 11:26 AM EST MICROALBUMIN/CREATININE RATIO URINE Routine 09/09/2018 11:12 AM EST GLUCOSE METER POC Routine 09/09/2018 5:29 AM EST PT / INR Timed 09/09/2018 3:09 AM EST HEPATIC FUNCTION PANEL Routine 9 3:09 AM EST HEMOGLOBIN AND HEMATOCRIT Timed 2018 3:09 AM EST BASIC METABOLIC PANEL Routine 09/09/2018 3:09 AM EST CALCIUM, IONIZED Routine 09/09/2018 3:09 AM EST GLUCOSE METER POC Routine 09/08/2018 11:22 PM EST XR CHEST AP PORTABLE NAOMI 09/08/2018 10:25 PM EST PT / INR Timed 09/08/2018 7:41 PM EST HEMOGLOBIN AND HEMATOCRIT Timed 2018 7:41 PM EST GLUCOSE METER POC Routine 09/08/2018 4:39 PM EST HEMOGLOBIN A1C Add-On 09/08/2018 3:05 PM EST HEMOGLOBIN AND HEMATOCRIT Timed 2018 3:05 PM EST GLUCOSE METER POC Routine 09/08/2018 12:54 PM EST CBC Routine 09/08/2018 7:06 AM EST BASIC METABOLIC PANEL Routine 09/08/2018 7:06 AM EST PT / INR Timed 09/08/2018 7:06 AM EST HEPATIC FUNCTION PANEL Routine 9 7:06 AM EST GLUCOSE METER POC Routine 09/08/2018 5:21 AM EST GLUCOSE METER POC Routine 09/07/2018 11:54 PM EST PT / INR Timed 09/07/2018 11:04 PM EST HEMOGLOBIN AND HEMATOCRIT Timed 2018 11:04 PM EST URINE CULTURE (NO STAIN) Routine 019 7:28 PM EST GLUCOSE METER POC Routine 09/07/2018 5:25 PM EST HEMOGLOBIN AND HEMATOCRIT Timed 2018 3:01 PM EST INTRAOP AIRWAY PLACEMENT Routine 019 2:00 PM EST ESOPHAGOGASTRODUODENOSCOPY (ANESTHESIA) 09/07/2018 1:50 PM EST Gastrointestinal hemorrhage, unspecified gastrointestinal hemorrhage type GMED EGD Routine 09/07/2018 1:00 PM EST GLUCOSE METER POC Routine 09/07/2018 12:43 PM EST GLUCOSE METER POC Routine 09/07/2018 11:03 AM EST REPEAT LACTIC ACID STAT 09/07/2018 10:47 AM EST PT / INR Timed 09/07/2018 10:47 AM EST LOWER RESPIRATORY CULTURE (STAIN INCLUDED) Routine 09/07/2018 9:52 AM EST LACTIC ACID Timed 09/07/2018 8:34 AM EST GLUCOSE METER POC Routine 09/07/2018 5:56 AM EST HEPATIC FUNCTION PANEL Add-On 9 5:54 AM EST HEMOGLOBIN AND HEMATOCRIT Timed 2018 5:54 AM EST PT / INR Routine 09/07/2018 5:54 AM EST AMMONIA LEVEL Routine 09/07/2018 5:54 AM EST AMYLASE LEVEL Routine 09/07/2018 5:54 AM EST LIPASE LEVEL Routine 09/07/2018 5:54 AM EST ACETAMINOPHEN LEVEL Routine 09/07/2018 5:54 AM EST REPEAT LACTIC ACID STAT 09/07/2018 5:54 AM EST GLUCOSE METER POC Routine 09/06/2018 11:38 PM EST HEMOGLOBIN AND HEMATOCRIT Timed 2018 11:22 PM EST LACTIC ACID Routine 09/06/2018 11:22 PM EST US ABDOMEN PELVIS VASCULAR STUDY LIMITED STAT 09/06/2018 3:39 PM EST HEMOGLOBIN AND HEMATOCRIT Timed 2018 3:11 PM EST HEMOCHROMATOSIS MUTATION DETECTION, HEREDITARY -REF LAB Routine 09/06/2018 3:11 PM EST HSV TYPE 1,2, IGM-REF LAB Routine 2018 3:11 PM EST GLUCOSE METER POC Routine 09/06/2018 2:11 PM EST GLUCOSE METER POC Routine 09/06/2018 9:31 AM EST EBV VIRAL CAPSID ANTIBODIES Add-On 11/2018 9:19 AM EST CMV IGG/IGM Add-On 09/06/2018 9:19 AM EST ACUTE HEPATITIS PANEL Routine 09/06/2018 9:19 AM EST BLOOD CULTURE (NO STAIN) Routine 019 9:19 AM EST BASIC METABOLIC PANEL Routine 09/06/2018 8:32 AM EST FERRITIN Add-On 09/06/2018 8:32 AM EST BLOOD CULTURE (NO STAIN) Routine 019 8:32 AM EST REPEAT LACTIC ACID STAT 09/06/2018 8:31 AM EST ECG AND WAVEFORMS - TELEMETRY Routine 09/06/2018 6:58 AM EST HEMOGLOBIN AND HEMATOCRIT Timed 2018 6:12 AM EST AMMONIA LEVEL Routine 09/06/2018 6:12 AM EST LACTIC ACID Routine 09/06/2018 6:12 AM EST US RIGHT UPPER QUADRANT NAOMI 09/07/19 19 2:22 AM EST TSH REFLEX TO FT4 Add-On 09/06/2018 1:42 AM EST REPEAT LACTIC ACID STAT 09/06/2018 1:42 AM EST TROPONIN-T HIGH SENSITIVITY BASELINE W/ REFLEX Timed 09/06/2018 1:[address] ABDOMEN PELVIS WO ORAL OR IV CONTRAST NAOMI 09/06/2018 1:09 AM EST BLOOD GAS ARTERIAL STAT 09/06/2018 12:19 AM EST BB HISTORY CHECK Routine 09/06/2018 12:09 AM EST ANTIBODY SCREEN IGG Routine 09/06/2018 12:09 AM EST ABORH Routine 09/06/2018 12:09 AM EST TYPE AND SCREEN Routine 09/06/2018 12:09 AM EST HEPATIC FUNCTION PANEL Routine 9 12:09 AM EST ACUTE HEPATITIS PANEL Routine 09/06/2018 12:09 AM EST LACTIC ACID STAT 09/06/2018 12:09 AM EST PARTIAL THROMBOPLASTIN TIME STAT 11/2018 12:09 AM EST PT / INR STAT 09/06/2018 12:09 AM EST TROPONIN-T HIGH SENSITIVITY BASELINE W/ REFLEX STAT 09/06/2018 12:09 AM EST PHOSPHORUS LEVEL STAT 09/06/2018 12:09 AM EST MAGNESIUM LEVEL STAT 09/06/2018 12:09 AM EST NT PROBNP STAT 09/06/2018 12:09 AM EST BASIC METABOLIC PANEL STAT 09/06/2018 12:09 AM EST CBC STAT 09/06/2018 12:09 AM EST EK EKG 12 LEAD STAT 09/05/2018 11:47 PM EST IP CONSULT TO MEDICAL MANAGEMENT LIAISON Routine 09/05/2018 11:47 PM EST Procedure Note - Damian Bauer MD - 09/06/2018 11:20 AM ESTThis note is in progress. Images from the original note were not included. Initial Consult 09/06/2018 Damian Valenzuela MD HISTORY of PRESENT ILLNESS Chief Complaint: GI bleed Reason for consult: Right upper quadrant pain, GI bleed Present Illness 78 yo M with h/o CAD s/p PCI with stent placement and prostate cancer [facility] with coffee ground emesis and darkstools. Given 1 pRBC and transferred for further management. CT suggestiveof cirrhosis, this was corroborated with RUQ US done here, Transaminitis,coagulopathy and lactic acidosis was also present. Initial reported complains were RUQ pain, no reported EtOH abuse. Oninitial evaluation patient Complains of exquisite right upper quadrant pain, pressure or palpation,rebound negative. NO history of EtOH abuse, no drug abuse either. On further questioning stoney been using an OTC supplement for leg cramps (Homeopatic Leg Cramps by [employer]) but the family members are not sure how much he has beenusing. Past Medical History: Diagnosis Date CAD (coronary artery disease) 3 stents Hyperlipidemia Prostate cancer (HCC) Past Surgical History: Procedure Laterality Date APPENDECTOMY CARDIAC CATHETERIZATION 3 stents No Known Allergies Current Meds ciprofloxacin (CIPRO) IVPB (Orderable) 200 mg Intravenous 2 times perday insulin aspart U-100 1-5 Units Subcutaneous 4 times per day iopamidol 30 mL Oral Once metroNIDAZOLE 500 mg Intravenous 3 times per day pantoprazole (PROTONIX) 40 mg Intravenous BID PRN Meds sodium chloride 0.9 %, albuterol OR albuterol, dextrose,glucagon (human recombinant), nitroGLYCERIN Infusions sodium chloride 0.9 % 100 mL/hr at 09/06/18 0803 sodium chloride 0.9 % History reviewed. No pertinent family history. Otherwise, no familyhistory of pulmonary disease. Social History Jose Alfredo reports that he quit smoking about 6 years ago. Hissmoking use included Cigarettes. He started smoking about 26 years ago. Melohas a 20.00 pack-year smoking history. He has never used smokelesstobacco. He reports that he does not drink alcohol or use drugs. Review of Systems Review of systems including general/constitutional, visual, auditory,cardiovascular, respiratory, endocrine, hematologic, GI, , neurological,musculoskeletal and psychiatric was negative with the exception of thepositives mentioned in the HPI EXAMINATION Vital Blood Pressure: 113/45 Temp: 98.1 F (36.7 C) SpO2: 94 % Signs Pulse: 113 Resp: 22 Intake/Output Summary (Last 24 hours) at 09/06/18 1120 Last data filed at 09/06/18 1056 Gross per 24 hour Intake 748.7 ml Output 950 ml Net -201.3 ml General appearance: Overweight, laying on bed on RA in moderate distress Head: normocephalic and atraumatic Eyes: pupils equal round and reactive to light and sclera anicteric ENT: mucous membranes moist, oral hygiene is poor, , Neck/Lymphatic:supple, no adenopathy and no thyromegaly, Respiratory System:clear to auscultation bilaterally and symmetrical chestexpansion Cardiovascular: regular rhythm, normal S1, S2, no rubs, murmurs or gallops Gastrointestinal: Very tender on RUQ, no significant rebound but voluntaryguarding is present. Musculoskeletal: no cyanosis or edema Neurological: no focal neurologic deficits following commands. Dermatological: Normal DATA REVIEWED I have personally reviewed the following data: HEMODYNAMIC DATA BP Min: 100/55 Max: 149/54 Pulse Av.5 Min: 109 Max: 128 Wt Readings from Last 2 Encounters: 09/06/18 198 lb 13.7 oz (90.2 kg) 07/17/14 180 lb (81.6 kg) Weight at Admission: 09/05/2018 198 lb 13.7 oz (90.2 kg) Lab Results Component Value Date/Time LACTA 9.3 (H) 09/06/2018 08:31 AM LACTA 8.0 (H) 09/06/2018 06:12 AM LACTA 6.3 (H) 09/06/2018 01:42 AM SUPPLEMENTAL O2 & NIV (last filed) O2 Device: Room Air MECHANICAL VENTILATION (last filed) BLOOD GAS & ACID BASE DATA SpO2 Av.2 % Min: 94 % Max: 99 % Recent Labs 09/06/18 0019 PH 7.44 PCO2 34* PO2 73* HCO3 22.8 O2SAT 95.5 Lab Results Component Value Date/Time ANIONGAP 19 (H) 09/06/2018 08:32 AM RENAL & METABOLIC DATA Lab Results Component Value Date/Time GLU 285 (H) 09/06/2018 08:32 AM BUN 44 (H) 09/06/2018 08:32 AM CREATININE 1.45 (H) 09/06/2018 08:32 AM NA 136 09/06/2018 08:32 AM K 4.3 09/06/2018 08:32 AM CL 100 09/06/2018 08:32 AM CO2 17 (L) 09/06/2018 08:32 AM CALCIUM 8.1 (L) 09/06/2018 08:32 AM MG 1.9 09/06/2018 12:09 AM PHOS 3.1 09/06/2018 12:09 AM GFRAFRAM 54 (L) 09/06/2018 08:32 AM HEMATOLOGY & COAGULATION DATA Recent Labs 09/06/18 0009 09/06/18611 WBC 12.6* -- HGB 8.7* 8.7* HCT 26.8* 28.1* PLT 196 -- Recent Labs 09/06/188 INR 1.49* PTT 26.5 GI & NUTRITION DATA Diet NPO DIET Lab Results Component Value Date/Time PROT 5.6 (L) 09/06/2018 12:09 AM ALT 1,745 (H) 09/06/2018 12:09 AM AST 2,441 (H) 09/06/2018 12:09 AM ALKPHOS 137 (H) 09/06/2018 12:09 AM LABBILI 1.1 09/06/2018 12:09 AM BILIDIR 0.4 (H) 09/06/2018 12:09 AM AMMONIA 35 09/06/2018 06:12 AM INFECTION DATA Temp (24hrs), Av.7 F (37.1 C), Min:98.1 F (36.7 C), Max:99 F(37.2 C) Results for orders placed or performed during the hospital encounter of09/05/18 (from the past 336 hour(s)) BLOOD CULTURE (NO STAIN) Collection Time: 09/06/18 8:32 AM Result Value Ref Range Culture Result Blood culture received for processing in the laboratory. Positives willbe reported immediately. BLOOD CULTURE (NO STAIN) Collection Time: 09/06/18 9:19 AM Result Value Ref Range Culture Result Blood culture received for processing in the laboratory. Positives willbe reported immediately. IMAGING DATA Ek Ekg 12 Lead Result Date: 09/06/2018 NOTICE: Preliminary tracing available for review; Final Interpretation byphysician to follow. 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 COMPARISON: Earlier today.TECHNIQUE: US RIGHT UPPER QUADRANT on 09/06/2018 2:22 AM. FINDINGS: Theliver was cirrhotic without a focal lesion. There was no evidence ofbiliary ductal dilation. The gallbladder was normal without shadowingcalculus, wall thickening, or pericholecystic fluid. A sonographicMurphy's sign was not elicited. The visualized portions of the pancreasand right kidney were unremarkable. Hepatic cirrhosis in an otherwise unremarkable right upper quadrantultrasound. Ct Abdomen Pelvis Wo Oral Or Iv Contrast Result Date: 09/06/2018 CLINICAL HISTORY: -abd pain. COMPARISON: None. TECHNIQUE: CT ABDOMENPELVIS WO ORAL OR IV CONTRAST on 09/06/2018 1:09 AM. FINDINGS: ABDOMEN:There is atelectasis at the lung bases. Coronary artery and aortic valvecalcifications are noted. The liver is cirrhotic. The unenhancedgallbladder, spleen, pancreas, adrenal glands, and kidneys are normal. Thecaliber of the small bowel is normal. There are no enlarged abdominallymph nodes or free fluid. The caliber of the abdominal aorta is normal.The spine is unremarkable. Pelvis: The caliber of the colon is normal. Theappendix is unremarkable. There are no enlarged pelvic lymph nodes or freefluid. The urinary bladder and prostate gland are normal. The bony pelvisis unremarkable. 1. No acute findings. 2. Incidental findings as described MEDICAL DECISION MAKING ASSESSMENT: GIB - s/p 1pRBC Metabolic acidosis RUQ pain GIOVANNY - ?CKD ?ZEV Nutrition Prophylaxis Code Status: Full Code PLAN: IVF Bolus 500ml x1, Closely monitor UOP Protonix IV BID CBC q6h, transfuse to keep Hb >7g/dL Trend LFTs and Lactate Liver doppler US to r/o suprahepatic thrombosis ICU Glycemic protocol, target BG 140-180 DVT prophylaxis with SCD Diet: NPO Thank you for the opportunity to participate in the care of yourpatient. Damian Valenzuela MD Pulmonary and Critical Care Medicine Disclaimer- This note was completed using voice recognition software.Despite my review, it may still contain unintended errors, typos etc.Please do not hesitate to contact me through hospital paging service withquestions. CT CHEST W CONTRAST Routine 06/20/2015 1:19 PM EST Shortness of breath Abnormal radiological findings in skin and subcutaneous tissue TROPONIN-T STAT 07/17/2014 3:14 AM EST XR CHEST PA AND LATERAL NAOMI 07/17/19 15 1:42 AM EST DIFFERENTIAL STAT 07/17/2014 1:20 AM EST TROPONIN-T STAT 07/17/2014 1:20 AM EST BASIC METABOLIC PANEL STAT 07/17/2014 1:20 AM EST NT PROBNP Routine 07/17/2014 1:20 AM EST CBC WITH DIFF STAT 07/17/2014 1:20 AM EST EK EKG 12 LEAD STAT 07/17/2014 1:09 AM EST Results * EK EKG 12 LEAD (06/01/2022 11:03 AM EST) Only the most recent of3 resultswithin the time period is included. Anatomical Region Laterality Modality Electrocardiogra phy 06/01/2022 11:5 9 AM EST Impressions 06/01/2022 7: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 WBC 6.9 3.7 - 10.3 x10(3)/mcL 06/01/2022 9:06 AM EST [facility] RBC 3.95(L) 4.60 - 6.10 x10(6)/mcL 06/01/2022 9:06 AM EST [facility] Hgb 11.4(L) 13.7 - 17.5 g/dL 06/01/2022 9:06 AM EST [facility] Hct 36.6(L) 40.0 - 51.0 % 06/01/2022 9:06 AM EST [facility] MCV 92.7 80.0 - 100.0 fL 06/01/2022 9:06 AM EST [facility] MCH 28.9 26.0 - 34.0 pg 06/01/2022 9:06 AM EST [facility] MCHC 31.1 30.7 - 35.5 g/dL 06/01/2022 9:06 AM EST [facility] RDW 13.6 <=14.9 % 06/01/2022 9:06 AM EST [facility] Platelet 179 155 - 369 x10(3)/mcL 06/01/2022 9:06 AM EST [facility] MPV 12.5 8.8 - 12.5 fL 06/01/2022 9:06 AM EST [facility] Neut Percent 63.6 % 06/01/2022 9:06 AM EST [facility] Comment:Neutrophils equals s egs plus bands Imm Gran% 0.3 % 06/01/2022 9:06 AM EST [facility] Comment:Automated count of m etamyelocytes, myelocytes and promyelocytes. Lymph Percent 22.0 % 06/01/2022 9:06 AM EST [facility] [place] Percent 9.1 % 06/01/2022 9:06 AM EST [facility] Eos Percent 4.3 % 06/01/2022 9:06 AM EST [facility] Baso Percent 0.7 % 06/01/2022 9:06 AM EST [facility] Neut # 4.4 1.6 - 6.1 x10(3)/[facility] 06/01/2022 9:06 AM EST [facility] Comment:Neutrophils equals s egs plus bands IMMGRAN# 0.0 0.0 - 0.1 x10(3)/[facility] 06/01/2022 9:06 AM EST [facility] Comment:Automated count of m etamyelocytes, myelocytes and promyelocytes. An absolute IG <0.1 is reported as 0.0. Lymph # 1.5 1.2 - 3.9 x10(3)/[facility] 06/01/2022 9:06 AM EST [facility] [place] # 0.6 0.3 - 0.9 x10(3)/[facility] 06/01/2022 9:06 AM EST [facility] Eos# 0.3 0.0 - 0.5 x10(3)/[facility] 06/01/2022 9:06 AM EST [facility] Baso # 0.1 0.0 - 0.1 x10(3)/[facility] 06/01/2022 9:06 AM EST [facility] Blood VENOUS BLOOD / Unknown Venipuncture / Unknown 06/01/2022 7:29 AM EST 06/01/2022 8:49 AM EST Octavia Drew MD HEMATOLOGY ORDERABLES Fi nal Result Performing Organization Address [facility]/ZIP Co de Phone Number [facility] [address] [facility], [place] [address] * (ABNORMAL) BASIC METABOLIC PANEL (06/01/2022 7:29 AM EST) Only the most recent of11 resultswithin the time period is included. Sodium 138 136 - 145 mmol/L 06/01/2022 9:32 AM EST [facility] Potassium 4.2 3.5 - 5.0 mmol/L 06/01/2022 9:32 AM EST [facility] Chloride 100 98 - 107 mmol/L 06/01/2022 9:32 AM EST [facility] Total CO2 30(H) 22 - 29 mmol/L 06/01/2022 9:32 AM EST [facility] Anion Gap 8 7 - 16 mmol/L 06/01/2022 9:32 AM EST [facility] Calcium 8.4(L) 8.8 - 10.4 mg/dL 06/01/2022 9:32 AM EST [facility] Glucose Lvl 147(H) 82 - 100 mg/dL 06/01/2022 9:32 AM EST [facility] BUN 22 8 - 23 mg/dL 06/01/2022 9:32 AM EST [facility] Creatinine 1.36(H) 0.67 - 1.30 mg/dL 06/01/2022 9:32 AM EST [facility] eGFR (CKD-EPIcr 2020) 53(L) >=60 mL/min/1.7 3 m2 06/01/2022 9:32 AM EST [facility] Comment:Estimated GFR was ca lculated using the CKD-EPIcr (2020) equation refit without race. The equation is recommended by the National Kidney [employer] - [place] [employer] of Nephrology Task Force. Blood VENOUS BLOOD / Unknown Venipuncture / Unknown 06/01/2022 7:29 AM EST 06/01/2022 8:50 AM EST us Octavia Drew MD CHEMISTRY ORDERABLES Fin al Result [facility] [address] [facility], [address] [place] [phone] [facility] [address] [place] [address] * ECG AND WAVEFORMS - TELEMETRY (06/01/2022 7:00 AM EST) Only the most recent of14 resultswithin the time period is included. ECG INTERPRET Sinus Bradycardia [facility] 06/01/2022 7:00 AM EST Narrative [facility] - 06/01/2022 9:18 AM EST /JPL/HICUITY/ROUTINE LA 0.18 QRS 0.08 RR 1.24 QT 0.48 QTc 0.43 See Clinical Report link for waveform capture us Unknown Provider POINT OF CARE CARDIOLOGY Final Result Performing Organization Address [facility] de Phone Number [place] [phone] * (ABNORMAL) GLUCOSE METER POC (06/01/2022 6:12 AM EST) Only the most recent of38 resultswithin the time period is included. [facility] Glucose Meter POC 153(H) 70 - 100 mg/dL 06/01/2022 6:14 AM EST [facility] Sample Type Capillary 06/01/2022 6:14 AM EST [facility] Patient Status Non-Critical Patient 06/01/2022 6:14 AM EST [facility] Blood BLOOD SPECIMEN / Unknown 06/01/2022 6:12 AM EST 06/01/2022 6:14 AM EST us Ronnie Garcia MD POINT OF CARE TEST ORDERABL ES Final Result Performing Organization Address City/[facility] Co de Phone Number [facility] [address] [place] [address] * POTASSIUM REPEAT (05/30/2022 8:47 PM EST) Potassium 4.3 3.5 - 5.0 mmol/L 05/30/2022 9:20 PM EST [facility] Blood VENOUS BLOOD / Unknown Venipuncture / Unknown 05/30/2022 8:47 PM EST 05/30/2022 9:00 PM EST us Octavia Drew MD CHEMISTRY ORDERABLES Fin al Result Performing Organization Address [facility] de Phone Number [facility] [address] , [place] [address] * (ABNORMAL) HEMOGLOBIN AND HEMATOCRIT (05/30/2022 8:47 PM EST) Only the most recent of11 resultswithin the time period is included. Hgb 12.4(L) 13.7 - 17.5 g/dL 05/30/2022 9:03 PM EST [facility] Hct 38.4(L) 40.0 - 51.0 % 05/30/2022 9:03 PM EST [facility] Blood VENOUS BLOOD / Unknown Venipuncture / Unknown 05/30/2022 8:47 PM EST 05/30/2022 8:58 PM EST Ralph Kang MD HEMATOLOGY ORDERABLES Final Re sult Performing Organization Address [facility] Co de Phone Number [facility] [address] , [place] [address] * (ABNORMAL) RETICULOCYTE PANEL DIAGNOSTIC (05/30/2022 11:03 AM EST) Retic Cnt Auto 2.2 0.9 - 2.5 % 05/30/2022 11:32 AM EST [facility] Retic # 88.5 40.0 - 110.0 x10(3)/mcL 05/30/2022 11:32 AM EST [facility] Imm. Retic Fraction % 19.3(H) 3.1 - 17.6 % 05/30/2022 11:32 AM EST [facility] Retic Hgb 34.0 28.0 - 38.0 pg 05/30/2022 11:32 AM EST [facility] Blood VENOUS BLOOD / Unknown Venipuncture / Unknown 05/30/2022 11:03 AM EST 05/30/2022 11:20 AM EST Narrative [employer] [facility] - 05/30/2022 11:32 AM EST Reticulocyte hemoglobin content (RET-He), a direct measurement of hemoglobinization of the developing reticulocyte, should be interpreted in conjunction with other indices. In various adult studies, values lower than 27-28pg (1,2) have demonstrated specificities for iron deficiency exceeding 90%. In a study of cancer patients, values exceeding 32pg (3) ruled out iron deficiency with a negative predictive value of 98.5%. RET-He has also demonstrated utility for monitoring response to iron replacement therapy (4). The immature reticulocyte fraction (IRF) assesses reticulocyte maturation by measuring the intensity of mRNA staining with the youngest reticulocytes having the highest content. (1)Manuel Y., et al. 2017. Int J Hematol 106:116-125. (2)Nesha Phelan., et al. 2017. Nutrients 9:450. (3)Wilfredo Medeiros, et al. 2014. Am J Clin Pathol 142:506-512. (4)Goodnough, L., et al. 2010. Blood 116:6737-1328. us Octavia Drew MD HEMATOLOGY ORDERABLES [facility] Result [facility] [employer] [facility] [address] [facility], [place] [address] * TSH REFLEX (05/30/2022 11:03 AM EST) Only the most recent of2 resultswithin the time period is included. TSH Reflex 1.120 0.270 - 4.200 mcIU/mL 05/30/2022 12:02 PM EST [facility] Blood VENOUS BLOOD / Unknown Venipuncture / Unknown 05/30/2022 11:03 AM EST 05/30/2022 11:21 AM EST Narrative [employer] [facility] - 05/30/2022 12:02 PM EST Ingestion of mariela doses of biotin (>5 mg/day) taken within 8 hours of drawing blood sample can interfere with this immunoassay test. Octavia Drew MD CHEMISTRY ORDERABLES Fin al Result Performing Organization Address City/[facility] Co de Phone Number [facility] [address] [place] [address] , [place] [address] * (ABNORMAL) HEMOGLOBIN A1C (05/30/2022 11:03 AM EST) Only the most recent of2 resultswithin the time period is included. Hgb A1C 8.5(H) 4.2 - 5.6 % 05/30/2022 11:58 AM EST [facility] Est. Avg Glucose 197 mg/dL 05/30/2022 11:58 AM EST [facility] Blood VENOUS BLOOD / Unknown Venipuncture / Unknown 05/30/2022 11:03 AM EST 05/30/2022 11:20 AM EST Narrative [facility] - 05/30/2022 11:58 AM EST REFERENCE RANGE: Normal: 4.0-5.6% Pre-diabetes: 5.7-6.4% Provisional diagnosis of diabetes: >6.4% Hgb F>10% and anything which shortens red cell survival, such as hemolytic anemia, or unstable hemoglobin variants such as HbSS, HbSC, or HbCC, will lower the HbA1c value associated with a given level of glycemic control. Octavia Drew MD CHEMISTRY ORDERABLES Fin al Result Performing Organization Address [facility] Co de Phone Number [facility] [address] [place] [address] , [facility] [place] [phone] * EXTRA PRETTY URINE CX (05/30/2022 4:05 AM EST) Urine URINE SPECIMEN COLLECTION, CLEAN CATCH / Unknown 05/30/2022 4:05 AM EST 05/30/2022 4:10 AM EST Loly Andujar MD MICROBIOLOGY - GENERAL MOOSE CUI Final Result Performing Organization Address City/[facility]/ZIP Co de Phone Number [facility] [address] [place], [place] [id number] [phone] * URINALYSIS (05/30/2022 4:05 AM EST) UA Color Light Yellow 05/30/2022 4:13 AM EST [facility] UA Appear Clear Clear 05/30/2022 4:13 AM EST [facility] UA Glucose Negative Negative mg/dL 05/30/2022 4:13 AM EST [facility] UA Ketones Negative Negative mg/dL 05/30/2022 4:13 AM EST [facility] UA Blood Negative Negative 05/30/2022 4:13 AM EST [facility] UA pH 6.0 5.0 - 8.0 pH 05/30/2022 4:13 AM EST [facility] UA Protein Negative Negative mg/dL 05/30/2022 4:13 AM EST [facility] UA Urobilinogen Normal <=1 mg/dL 4:13 AM EST [facility] UA Bili Negative Negative 05/30/2022 4:13 AM EST [facility] UA Nitrite Negative Negative 05/30/2022 4:13 AM EST [facility] UA Leuk Est Negative Negative 05/30/2022 4:13 AM EST [facility] UA Spec Grav 1.018 1.001 - 1.035 no units 05/30/2022 4:13 AM EST [facility] Comment:Reference range niharika d for random specimens only. Urine URINE SPECIMEN COLLECTION, CLEAN CATCH / Unknown 05/30/2022 4:05 AM EST 05/30/2022 4:10 AM EST us Loly Andujar MD URINE ORDERABLES Final Resu lt [facility] [address] [facility] , [place] [address] * BB HISTORY CHECK (05/30/2022 3:56 AM EST) Only the most recent of2 resultswithin the time period is included. BB HISTORY CHECK (1) Previous History OK 05/30/2022 4:22 AM EST [facility] Blood VENOUS BLOOD / Unknown Venipuncture / Unknown 05/30/2022 3:56 AM EST 05/30/2022 4:[address] [facility] Loly Andujar MD BLOOD BANK ORDERABLES Final Result Performing Organization Address City/[facility] [place] [address] * ABORH (05/30/2022 3:56 AM EST) Only the most recent of2 resultswithin the time period is included. ABORH Int A POS 05/30/2022 5:0 8 AM EST [facility] BLOOD [facility] Blood VENOUS BLOOD / Unknown Venipuncture / Unknown 05/30/2022 3:56 AM EST 05/30/2022 4:05 AM EST Loly Andujar MD BLOOD BANK ORDERABLES Final Result Performing Organization Address [facility] Co de Phone Number [address] [address] * (ABNORMAL) PT / INR (05/30/2022 3:56 AM EST) Only the most recent of10 resultswithin the time period is included. PT 14.4(H) 10.0 - 13.1 second(s) 05/30/2022 4:15 AM EST [facility] INR 1.22(H) 0.86 - 1.12 (ratio) 05/30/2022 4:15 AM EST [facility] Comment: Level of Therapy Indications Target INR Range Standard Dose Treatment and prophylaxis of venous 2.0 - 3.0 thrombosis, pulmonary embolism High Dose High risk patients with mechanical 2.5 - 3.5 heart valves Blood VENOUS BLOOD / Unknown Venipuncture / Unknown 05/30/2022 3:56 AM EST 05/30/2022 4:05 AM EST Loly Andujar MD HEMATOLOGY ORDERABLES Final Result [facility] [address] [facility], [place] [address] * ANTIBODY SCREEN IGG (05/30/2022 3:56 AM EST) Only the most recent of2 resultswithin the time period is included. Pathologist [facility] ABSC IgG Int Negative 05/30/2022 5:19 AM EST [facility] Blood VENOUS BLOOD / Unknown Venipuncture / Unknown 05/30/2022 3:56 AM EST 05/30/2022 4:05 AM EST Loly Andujar MD BLOOD BANK ORDERABLES Final Result Performing Organization Address [facility] Co de Phone Number [facility] [address] [place] [address] * (ABNORMAL) CBC (05/29/2022 9:57 PM EST) Only the most recent of3 resultswithin the time period is included. Pathologist [facility] WBC 8.3 3.7 - 10.3 x10(3)/mcL 05/29/2022 10:02 PM EST [facility] RBC 4.38(L) 4.60 - 6.10 x10(6)/mcL 05/29/2022 10:02 PM EST [facility] Hgb 12.6(L) 13.7 - 17.5 g/dL 05/29/2022 10:02 PM EST [facility] Hct 39.8(L) 40.0 - 51.0 % 05/29/2022 10:02 PM EST [facility] MCV 90.9 80.0 - 100.0 fL 05/29/2022 10:02 PM EST [facility] MCH 28.8 26.0 - 34.0 pg 05/29/2022 10:02 PM EST [facility] MCHC 31.7 30.7 - 35.5 g/dL 05/29/2022 10:02 PM EST [facility] RDW 13.4 <=14.9 % 05/29/2022 10:02 PM [facility] Platelet 228 155 - 369 x10(3)/mcL 05/29/2022 10:02 PM EST [facility] MPV 11.1 8.8 - 12.5 fL 05/29/2022 10:02 PM [facility] Blood VENOUS BLOOD / Unknown Venipuncture / Unknown 05/29/2022 9:57 PM EST 05/29/2022 9:58 PM EST us Loly Andujar MD HEMATOLOGY ORDERABLES Final Result [facility] [address] [place] [address] * (ABNORMAL) COMPREHENSIVE METABOLIC PANEL (05/29/2022 9:57 PM EST) Sodium 137 136 - 145 mmol/L 05/29/2022 10:17 PM [facility] Potassium 4.2 3.5 - 5.0 mmol/L 05/29/2022 10:17 PM [facility] Chloride 95(L) 98 - 107 mmol/L 05/29/2022 10:17 PM [facility] Total CO2 30(H) 22 - 29 mmol/L 05/29/2022 10:17 PM [facility] Anion Gap 12 7 - 16 mmol/L 05/29/2022 10:17 PM [facility] Calcium 9.8 8.8 - 10.4 mg/dL 05/29/2022 10:17 PM [facility] Glucose Lvl 173(H) 82 - 100 mg/dL 05/29/2022 10:17 PM [facility] BUN 19 8 - 23 mg/dL 05/29/2022 10:17 PM [facility] Creatinine 1.22 0.67 - 1.30 mg/dL 05/29/2022 10:17 PM [facility] Albumin 4.2 3.2 - 4.6 gm/dL 05/29/2022 10:17 PM [facility] Total Protein 7.7 6.4 - 8.3 gm/dL 05/29/2022 10:17 PM [facility] Bili Total 0.7 0.1 - 1.4 mg/dL 05/29/2022 10:17 PM EST [facility] ALT 28 <=41 U/L 05/29/2022 10:17 PM EST [facility] AST 34 <=40 U/L 05/29/2022 10:17 PM EST [facility] Alk Phos 63 40 - 129 U/L 05/29/2022 10:17 PM EST [facility] eGFR (CKD-EPIcr 2020) 60 >=60 mL/min/1.7 3 m2 05/29/2022 10:17 PM EST [facility] Comment:Estimated GFR was ca lculated using the CKD-EPIcr (2020) equation refit without race. The equation is recommended by the [employer] - [place] [employer] Neph[employer] Task Force. Blood VENOUS BLOOD / Unknown Venipuncture / Unknown 05/29/2022 9:57 PM EST 05/29/2022 9:59 PM EST us Loly Andujar MD CHEMISTRY ORDERABLES Final Result [facility] [address] [place] [address] * XR CHEST PA AND LATERAL (09/13/2018 5:51 AM EDT) Only the most recent of2 resultswithin the time period is included. Anatomical Region Laterality Modality Chest Radiographic Tanya ging 09/13/2018 5:51 AM EDT Impressions 09/13/2018 6:24 AM EDT Resolved bilateral infiltrates. - - Narrative 09/13/2018 6:24 AM EDT PA AND LATERAL CHEST X-RAY, 09/13/2018 5:51 AM CLINICAL HISTORY: -f/u infiltrates COMPARISON: 09/08/2018 PROCEDURE COMMENTS: Frontal and lateral views of the chest. FINDINGS: Improved bilateral infiltrates noted. No significant residual infiltrate or pleural fluid identified. Heart size is mildly enlarged but stable. Procedure Note Suzanna Ritter MD - 09/13/2018 PA AND LATERAL CHEST X-RAY, 09/13/2018 5:51 AM CLINICAL HISTORY: -f/u infiltrates COMPARISON: 09/08/2018 PROCEDURE COMMENTS: Frontal and lateral views of the chest. FINDINGS: Improved bilateral infiltrates noted. No significant residual infiltrateor pleural fluid identified. Heart size is mildly enlarged but stable. IMPRESSION: Resolved bilateral infiltrates. - - us Ralph Duff MD IMG DIAGNOSTIC IMAGING ORDERA BLES Final Result * (ABNORMAL) IRON/UIBC (09/10/2018 7:41 AM EST) Iron 14(L) 50 - 170 mcg/dL 09/10/2018 9:35 AM EST [facility] UIBC 160 112 - 347 mcg/dL 09/10/2018 9:35 AM EST [facility] Transferrin Sat 8(L) 20 - 50 % 9 9:35 AM EST [facility] Blood VENOUS BLOOD / Unknown Venipuncture / Unknown 09/10/2018 7:41 AM EST 09/10/2018 7:55 AM EST us Boone Moore MD PHD CHEMISTRY ORDERABLES Final Result [facility] 1 [facility] , [place] [address] * (ABNORMAL) HEPATIC FUNCTION PANEL (09/10/2018 7:41 AM EST) Only the most recent of5 resultswithin the time period is included. Total Protein 5.2(L) 6.4 - 8.3 gm/dL 09/10/2018 8:42 AM EST [facility] Albumin 2.3(L) 3.2 - 4.6 gm/dL 09/10/2018 8:42 AM EST [facility] Bili Direct <0.2 0.0 - 0.3 mg/dL 09/10/2018 8:42 AM EST [facility] Bili Total 0.3 0.1 - 1.4 mg/dL 09/10/2018 8:42 AM EST [facility] AST 56(H) <=40 IU/L 09/10/2018 8:42 AM EST [facility] ALT 441(H) <=41 IU/L 09/10/2018 8:42 AM EST [facility] Alk Phos 81 40 - 129 IU/L 09/10/2018 8:42 AM EST [facility] Blood VENOUS BLOOD / Unknown Venipuncture / Unknown 09/10/2018 7:41 AM EST 09/10/2018 7:55 AM EST us Kiersten Rosen MD CHEMISTRY ORDERABLES Final Res ult Performing Organization Address [facility] Co de Phone Number [facility], [address] , [place] [address] * [place] MODIFIED BARIUM SWALLOW (09/09/2018 3:53 PM EST) Narrative [facility] - 09/09/2018 3:54 PM EST Modified Barium Swallow was performed in the Radiology department by Speech Pathology. No Radiologist in attendance. No charge from [facility]. Refer to Speech Pathology for further information. us Damian Valenzuela MD IMG FLUOROSCOPY ORDERA BLES Final Result Performing Organization Address [facility] Co de Phone Number [facility] * MICROALBUMIN/CREATININE RATIO URINE (09/09/2018 11:12 AM EST) Urine Microalb 12.4 mg/L 09/09/2018 11:59 AM EST [facility] Urine Creatinine 119.8 mg/dL 09/09/2018 11:59 AM EST [facility] Ur Microalb/Creat 10 0 - 30 mg/g 09/09/2018 11:59 AM EST [facility] Urine STRUCTURE OF URINARY TRACT PROPER / Unknown 09/09/2018 11:12 AM EST 09/09/2018 11:16 AM EST us Mukesh Bryson MD URINE ORDERABLES Final Resul t Performing Organization Address [facility] Co de Phone Number [facility], [address] , [place] [address] * (ABNORMAL) IONIZED CALCIUM - INPATIENT (09/09/2018 3:09 AM EST) Calcium Ionized 1.05(L) 1.12 - 1.32 mmol/L 09/09/2018 3:18 AM EST [facility] Blood VENOUS BLOOD / Unknown Butterfly / Unknown 09/09/2018 3:09 AM EST 09/09/2018 3:15 AM EST Mukesh Bryson MD CHEMISTRY ORDERABLES Final R esult [facility] 1 [facility] , [place] [address] * XR CHEST AP PORTABLE (09/08/2018 10:25 PM EST) Anatomical Region Laterality Modality Chest Radiographic Tanya ging 09/08/2018 10:2 5 PM EST Impressions 09/08/2018 10:32 PM EST Atelectasis or changes of aspiration at the lung bases Narrative 09/08/2018 10:32 PM EST CLINICAL HISTORY: -possible aspiration issue. COMPARISON: 07/17/2014. TECHNIQUE: XR CHEST AP PORTABLE on 09/08/2018 10:25 PM. FINDINGS: There is increased density at the lung bases. There is no pneumothorax or pleural effusion. The heart size and pulmonary vascularity are normal. The upper abdomen and osseous structures are unremarkable. Procedure Note Markie Ellis MD - 09/08/2018 CLINICAL HISTORY: -possible aspiration issue. COMPARISON: 07/17/2014. TECHNIQUE: XR CHEST AP PORTABLE on 09/08/2018 10:25 PM. FINDINGS: There is increased density at the lung bases. There is nopneumothorax or pleural effusion. The heart size and pulmonary vascularity are normal.The upper abdomen and osseous structures are unremarkable. IMPRESSION: Atelectasis or changes of aspiration at the lung bases us Beti Cabrera APRN IMG DIAGNOSTIC IMAGING ORD ERABLES Final Result * URINE CULTURE (NO STAIN) (09/07/2018 7:28 PM EST) Culture Multiple bacterial species isolated from urine indicating superficial contamination. 09/09/2018 6:42 AM EST [facility] Urine URINE SPECIMEN COLLECTION, CLEAN CATCH / Unknown 09/07/2018 7:28 PM EST 09/07/2018 7:33 PM EST Shobha Marks APRN MICROBIOLOGY - GENERAL ORDERABL ES Final Result Performing Organization Address [facility] Co de Phone Number [facility] 1 [facility], [place] [address] * INTRAOP AIRWAY PLACEMENT (09/07/2018 2:00 PM EST) Narrative [facility] - 09/07/2018 2:00 PM EST Tiesha So CRNA 09/07/2018 2:00 PM Intraop Airway Placement: Airway type: Nasal cannula salter Procedure Note Tiesha So CRNA - 09/07/2018 2:00 PM EST Intraop Airway Placement: Airway type: Nasal cannula salter Peace Cheng MD [place] ANESTHESIA Final Result Performing Organization Address [facility] Co de Phone Number [facility] [address] [place] [address] * GMED EGD (09/07/2018 1:00 PM EST) 09/07/2018 1:00 PM EST Impressions [facility] - 09/07/2018 2:10 PM EST 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 Grade C esophagitis in the gastroesophageal junction and lower third of the esophagus compatible with esophagitis. Ulcer in the stomach body. Normal mucosa in the remainder of the stomach. Normal mucosa in the whole examined duodenum. Plan: High dose PPI bid. Continue octreotide drip for 72 hours total. Empiric IV antibiotics. Monitor H&H and transfuse as needed. Goal Hb of 7-8. Avoid over transfusion. Correct coagulopathy with goal INR < 1.5 and Plt > 50K. GI will continue to follow. NPO for now. This section is an excerpt of the full report. Asha Jackson MD GI PROCEDURE ORDERAB LES Final Result Performing Organization Address [facility]/ZIP Co de Phone Number [facility] [address] [place] [id number] * (ABNORMAL) REPEAT LACTIC ACID (09/07/2018 10:47 AM EST) Only the most recent of4 resultswithin the time period is included. Lactic Acid 3.9(H) 0.5 - 1.9 mmol/L 09/07/2018 11:03 AM EST [facility] Blood VENOUS BLOOD / Unknown Butterfly / Unknown 09/07/2018 10:47 AM EST 09/07/2018 10:51 AM EST Damian Valenzuela MD CHEMISTRY ORDERABLES F inal Result Performing Organization Address [facility]/ZIP Co de Phone Number [facility] [address] [place] [id number] * (ABNORMAL) LOWER RESPIRATORY CULTURE (STAIN INCLUDED) (09/07/2018 9:52 AM EST) Culture Positive Growth(A) 2018 10:41 AM EST [facility] Culture Moderate growth of Staphylococcus aureus SUSCEPTIBI LITY RESULT 09/10/2018 10:41 AM EST [facility] PBP2a test Negative 09/10/2018 10:41 AM EST [facility] Culture Abundant growth of Normal oral mariam 09/10/2018 10:41 AM EST [facility] Stain Group 5: >25 WBC and <10 epithelial cells/lpf 09/10/2018 10:41 AM EST [facility] Stain Abundant Mixed oral mariam 09/10/2018 10:41 AM EST [facility] Sputum LOWER RESPIRATORY TRACT STRUCTURE / Unknown 09/07/2018 9:52 AM EST 09/07/2018 9:57 AM EST Narrative [facility] - 09/10/2018 10:41 AM EST Penicillin-Binding Protein 2a (PBP2a) is a rapid assay to aid in identifying methicillin-resistant Staphylococcus aureus by detecting the protein that confers resistance to methicillin. A negative result does not exclude methicillin resistance due to other mechanisms. Organism Antibiotic Method Susceptibility Staphylococcus aureus Ampicillin SUSCEPTIBILITY RESU LT Staphylococcus aureus Cefazolin SUSCEPTIBILITY RESU LT <=4 ug/mL: Susceptible Staphylococcus aureus Ceftaroline SUSCEPTIBILITY RESU LT Staphylococcus aureus Ceftriaxone SUSCEPTIBILITY RESU LT <=4 ug/mL: Susceptible Staphylococcus aureus Chloramphenicol SUSCEPTIBILITY R ESULT <=8 ug/mL: Susceptible Staphylococcus aureus Ciprofloxacin SUSCEPTIBILITY RES ULT <=1 ug/mL: Susceptible Staphylococcus aureus Clindamycin SUSCEPTIBILITY RESU LT <=0.25 ug/mL: Resistant Staphylococcus aureus Daptomycin SUSCEPTIBILITY RESU LT Staphylococcus aureus Erythromycin SUSCEPTIBILITY RESU LT >4 ug/mL: Resistant Staphylococcus aureus Gentamicin SUSCEPTIBILITY RESU LT <=1 ug/mL: Susceptible Staphylococcus aureus Gentamicin synergy SUSCEPTIBILIT Y RESULT Staphylococcus aureus Levofloxacin SUSCEPTIBILITY RESU LT <=0.5 ug/mL: Susceptible Staphylococcus aureus Linezolid SUSCEPTIBILITY RESU LT Staphylococcus aureus Moxifloxacin SUSCEPTIBILITY RESU LT <=0.25 ug/mL: Susceptible Staphylococcus aureus Nitrofurantoin SUSCEPTIBILITY RE SULT Staphylococcus aureus Oxacillin SUSCEPTIBILITY RESU LT <=0.25 ug/mL: Susceptible Staphylococcus aureus Penicillin SUSCEPTIBILITY RESU LT Staphylococcus aureus Rifampin SUSCEPTIBILITY RESU LT <=1 ug/mL: Susceptible Staphylococcus aureus Streptomycin synergy SUSCEPTIBIL ITY RESULT Staphylococcus aureus Synercid SUSCEPTIBILITY RESU LT Staphylococcus aureus Tetracycline SUSCEPTIBILITY RESU LT <=2 ug/mL: Susceptible Staphylococcus aureus Tigecycline SUSCEPTIBILITY RESU LT Staphylococcus aureus Trimethoprim/Sulfa meth oxazole SUSCEPTIBILITY RESULT <=0.5/9.5 ug/mL: Susceptible Staphylococcus aureus Vancomycin SUSCEPTIBILITY RESU LT 0.5 ug/mL: Susceptible Comment: This organism is presumed to be Clindamycin resistant based on detection of inducible resistance to this drug. Rifampin and Gentamicin should not be used alone for antimicrobial therapy. For methicillin resistant staphylococci, ciprofloxacin should also not be used alone. us Shobha Marks APRN MICROBIOLOGY - GENERAL ORDERABL ES Final Result [facility], [address] , [address] [place] [id number] * (ABNORMAL) LACTIC ACID (09/07/2018 8:34 AM EST) Only the most recent of4 resultswithin the time period is included. Lactic Acid 4.2(H) 0.5 - 1.9 mmol/L 09/07/2018 9:02 AM EST [facility] Blood VENOUS BLOOD / Unknown Venipuncture / Unknown 09/07/2018 8:34 AM EST 09/07/2018 8:45 AM EST Damian Valenzuela MD CHEMISTRY ORDERABLES F inal Result Performing Organization Address City/[facility]/ZIP Co de Phone Number [facility] [address] [place] [address] * (ABNORMAL) LIPASE LEVEL (09/07/2018 5:54 AM EST) Lipase Lvl 8(L) 13 - 60 IU/L 09/07/2018 6:30 AM EST [facility] Blood VENOUS BLOOD / Unknown Venipuncture / Unknown 09/07/2018 5:54 AM EST 09/07/2018 6:00 AM EST Silvio Jaramillo MD CHEMISTRY ORDERABLES Final R esult Performing Organization Address [facility] Co de Phone Number [facility] 1 [facility] , [place] [address] * (ABNORMAL) AMYLASE LEVEL (09/07/2018 5:54 AM EST) Amylase Lvl 10(L) 28 - 100 IU/L 09/07/2018 6:30 AM EST [facility] Blood VENOUS BLOOD / Unknown Venipuncture / Unknown 09/07/2018 5:54 AM EST 09/07/2018 6:00 AM EST Silvio Jaramillo MD CHEMISTRY ORDERABLES Final R esult Performing Organization Address City/[facility] Co de Phone Number [facility] 1 [facility] , [place] [phone] * AMMONIA LEVEL (09/07/2018 5:54 AM EST) Only the most recent of2 resultswithin the time period is included. Ammonia 51 16 - 60 mcmol/L 09/07/2018 6:24 AM EST [facility] Blood VENOUS BLOOD / Unknown Venipuncture / Unknown 09/07/2018 5:54 AM EST 09/07/2018 6:00 AM EST Silvio Jaramillo MD CHEMISTRY ORDERABLES Final R esult Performing Organization Address [facility] de Phone Number [facility] [address] [place] [address] , [address] [place] [id number] * ACETAMINOPHEN LEVEL (09/07/2018 5:54 AM EST) Acetaminophen Lvl <15.0 mcg/mL 019 6:33 AM EST [facility] Blood VENOUS BLOOD / Unknown Venipuncture / Unknown 09/07/2018 5:54 AM EST 09/07/2018 6:00 AM EST Narrative [facility] - 09/07/2018 6:33 AM EST Therapeutic: 10-30 mcg/ml Supratherapeutic: > 35 mcg/ml Toxic: > 150 mcg/ml (4h post ingestion) > 75 mcg/ml (8h post ingestion) > 40 mcg/ml (12h post ingestion) Silvio Jaramillo MD CHEMISTRY ORDERABLES Final R [facility] Performing Organization Address [facility] Co de Phone Number [facility] [address] [place] [address] , [place] [address] * US ABDOMEN PELVIS VASCULAR STUDY LIMITED (09/06/2018 3:39 PM EST) Anatomical Region Laterality Modality Abdomen Ultrasound 09/06/2018 3:39 PM EST Impressions 09/06/2018 4:03 PM EST 1. Limited study. Grossly patent hepatic vasculature. 2. Abnormal liver echotexture likely cirrhosis/hepatocellular disease. - - . Narrative 09/06/2018 4:03 PM EST US ABDOMEN PELVIS VASCULAR STUDY LIMITED, 09/06/2018 3:39 PM CLINICAL HISTORY: -Acute RUQ abdominal pain and transaminitis, normal hepatitis panel COMPARISON: 09/06/2018 PROCEDURE COMMENTS: Routine sonographic evaluation of the region of interest with call center representative images sent to PACS along with windmill technician notes. FINDINGS: Grayscale, color Doppler, and spectral waveform analysis performed. Cirrhotic appearing liver. Main, right, and left portal veins are patent with hepatopedal flow. No liver masses. Hepatic veins are grossly patent. Common bile duct 5 mm in diameter. Gallbladder normal. No liver masses. Flow is detected in the hepatic artery. Waveform detected. Study limited by patient condition. Procedure Note Wu Carrillo MD - 09/06/2018 US ABDOMEN PELVIS VASCULAR STUDY LIMITED, 09/06/2018 3:39 PM CLINICAL HISTORY: -Acute RUQ abdominal pain and transaminitis, normalhepatitis panel COMPARISON: 09/06/2018 PROCEDURE COMMENTS: Routine sonographic evaluation of the region ofinterest with call center representative images sent to PACS along with windmill technician notes. FINDINGS: Grayscale, color Doppler, and spectral waveform analysis performed.Cirrhotic appearing liver. Main, right, and left portal veins are patent withhepatopedal flow. No liver masses. Hepatic veins are grossly patent. Common bile duct5 mm in diameter. Gallbladder normal. No liver masses. Flow is detected inthe hepatic artery. Waveform detected. Study limited by patient condition. IMPRESSION: 1. Limited study. Grossly patent hepatic vasculature. 2. Abnormal liver echotexture likely cirrhosis/hepatocellular disease. - - . Damian Valenzuela MD [facility] US ORDERABLES Baylee l Result * HEMOCHROMATOSIS MUTATION DETECTION, HEREDITARY -REF LAB (09/06/2018 3:11 PM EST) C282Y Negative 09/11/2018 2:27 PM EDT [employer] H63D Negative 09/11/2018 2:27 PM EDT [employer] S65C Negative 09/11/2018 2:27 PM EDT [employer] Hemochromatosis Mutation Inter See Note 09/11/2018 2:27 PM EDT [employer] Comment: Indication for testing: Carrier screening or diagnostic testing for hereditary hemochromatosis. Hemochromatosis Interpretive Results: Negative WT: C282Y: Negative - The patient is negative for the HFE C282Y mutation. H63D: Negative - The patient is negative for the HFE H63D mutation. S65C: Negative - The patient is negative for the HFE S65C mutation. Mutations in unidentified genes or other mutations in the HFE gene are not ruled out. This result has been reviewed and approved by Payton Wilkinson M.D., Ph.D. BACKGROUND INFORMATION: Hemochromatosis (HFE) 3 Mutations CHARACTERISTICS: Disorder of iron metabolism resulting in excessive iron storage leading to increased skin pigmentation, arthritis, hypogonadism, diabetes mellitus, heart arrhythmias/failure, cirrhosis and liver carcinoma. INCIDENCE: One in 300 individuals of [place] descent; unknown in other ethnicities. INHERITANCE: Autosomal recessive. PENETRANCE: 5 percent of C282Y homozygotes, 1 percent of C282Y/H63D compound heterozygotes and rare H63D homozygotes develop clinical symptoms. 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 MUTATIONS TESTED: p.C282Y (c.845G>A), p.H63D (c.187C>G), and p.S65C (c.193A>T). CLINICAL SENSITIVITY: 85 percent of hereditary hemochromatosis in Northern Europeans is caused by C282Y homozygosity and 5 percent by C282Y/H63D compound heterozygosity. METHODOLOGY: PCR and fluorescence monitoring. ANALYTICAL SENSITIVTY AND SPECIFICITY: 99 percent. LIMITATIONS: HFE mutations, other than those targeted, will not be detected. Diagnostic errors can occur due to rare sequence variations. Test developed and characteristics determined by [facility]. See Compliance Statement C: [employer]/ Performed by [facility], [address] [place] [address] [email or web address], Guillermo Casey MD, Lab. Director HFE PCR specimen Whole Blood 019 2:27 PM EDT [employer] Blood Butterfly / Unknown 09/06/2018 3:11 PM EST 09/06/2018 3:11 PM EST Ursula Harris APRN IMMUNOLOGY ORDERABLES Final Re sult [facility] [address] [place] [address] * HSV TYPE 1,2, IGM-REF LAB (09/06/2018 3:11 PM EST) Pathologist [facility] [place] HSV 1/2 IgM 0.29 <=0.89 IV 09/08/2018 12:32 AM EST [facility] Comment: INTERPRETIVE INFORMATION: Herpes Simplex Virus Type 1 and/or 2 Antibodies, IgM by KARENA 0.89 IV or Less .......... Not Detected 0.90 - 1.09 IV ........... Indeterminate- Repeat testing in 10-14 days may be helpful. 1.10 IV or Greater ....... Detected-IgM antibody to HSV detected, which may indicate a current or recent infection. However, low levels of IgM antibodies may occasionally persist for more than 12 months post-infection. Performed by [facility], [address] [place] [id number] [email or web address], Guillermo Casey MD, Lab. Director Blood Butterfly / Unknown 09/06/2018 3:11 PM EST 09/06/2018 3:11 PM EST Ursula Harris APRN IMMUNOLOGY ORDERABLES Final Re sult [facility] [address] [place] [address] * (ABNORMAL) CMV IGG/IGM (09/06/2018 9:19 AM EST) Pathologist [facility] [place] CMV IgG Positive(A) Negative, [employer] 09/07/2018 10:52 AM EST [facility] [employer] [employer] CMV IgM Negative Negative, [employer] 09/07/2018 10:52 AM EST [facility] [employer] [employer] Blood Butterfly / Unknown 09/06/2018 9:19 AM EST 09/06/2018 9:25 AM EST Narrative [facility] [employer] [employer] - 09/07/2018 10:52 AM EST A positive value indicates a current or previous infection with CMV. Presume that such individuals are at risk of transmitting CMV infection, but are not necessarily currently contagious. A negative result indicates no current or previous infection with CMV. Presume that such individuals are susceptible to primary infections. However, specimens taken too early during a primary infection may not have detectable levels of IgM antibody. If a primary infection is suspected, take another specimen within 7 days. us Ursula Harris APRN IMMUNOLOGY ORDERABLES Final Re sult [facility] 1 [facility] , [place] [address] * EBV VIRAL CAPSID ANTIBODIES (09/06/2018 9:19 AM EST) EB VCA IgM <10.0 unit/mL 09/06/2018 12:24 PM EST [facility] Comment: Sample results should be interpreted as follows: <36.0 U/mL Negative Absence of detectable VCA IgM antibodies. If exposure to Joaquina-Win virus is suspected despite a negative finding, a second sample should be collected and tested no less than one to two weeks later. 36.0 to 43.9 U/mL [employer] The equivocal sample should be repeat tested. In case the result remains in this range after repeat testing, a second sample should be collected and tested no less than one to two weeks later. > 44.0 U/mL Positive Presence of detectable VCA IgM antibodies. Specific IgM antibodies are usually detected in patients with recent primary infections and may be found in patients with reactivated infections. Other EBV serology assays should be performed to confirm EBV-associated infectious mononucleosis. Note - The magnitude of the measured result, above the cutoff, is not indicative of the amount of antibody present. EB VCA IgG 623.0 unit/mL 09/06/2018 12:24 PM EST [facility] Comment: Sample results should be interpreted as follows: < 18.0 U/mL Negative Absence of detectable VCA IgG antibodies. If exposure to Joaquina-Win virus is suspected despite a negative finding, a second sample should be collected and tested no less than one to two weeks later. 18.0 to 21.9 U/mL Equivocal The equivocal sample should be repeat tested. In case the result remains in this range after repeat testing, a second sample should be collected and tested no less than one or two weeks later. > 22 U/mL Positive Presence of detectable VCA IgG antibodies. A positive result indicates current or past exposure to Joaquina-Win virus. Note - The magnitude of the measured result, above the cutoff, is not indicative of the amount of antibody present. Blood Butterfly / Unknown 09/06/2018 9:19 AM EST 09/06/2018 9:25 AM EST Ursula Harris APRN IMMUNOLOGY ORDERABLES Final Re sult Performing Organization Address [facility] de Phone Number [facility] [address], [place] [address] * ACUTE HEPATITIS PANEL (09/06/2018 9:19 AM EST) Only the most recent of2 resultswithin the time period is included. Hep Bs Ag Non-Reacti ve Non-Reacti ve 09/06/2018 11:15 AM EST [facility] Hep B Core IgM Non-Reacti ve Non-Reacti ve 09/06/2018 11:15 AM EST [facility] Hep A IgM Non-Reacti ve Non-Reacti ve 09/06/2018 11:15 AM EST [facility] Hep C Ab Non-Reacti ve Non-Reacti ve 09/06/2018 11:15 AM EST [employer] [employer] Blood Butterfly / Unknown 09/06/2018 9:19 AM EST 09/06/2018 9:25 AM EST Mukesh Bryson MD CHEMISTRY ORDERABLES Final R esult Performing Organization Address [facility] [facility] Phone Number [employer] [address], [place] [address] * BLOOD CULTURE (NO STAIN) (09/06/2018 9:19 AM EST) Only the most recent of2 resultswithin the time period is included. Culture Result No Growth at 120 hours. BLOOD CULTURE (NO STAIN) 09/11/2018 11:00 AM EDT [facility] [employer], [employer] Blood VENOUS BLOOD / Unknown Butterfly / Unknown 09/06/2018 9:19 AM EST 09/06/2018 9:25 AM EST Mukesh Bryson MD MICROBIOLOGY - GENERAL ORDER CRYSTAL Final Result Performing Organization Address [facility]/ZIP Co de Phone Number [employer] [address] , [place] [address] * (ABNORMAL) FERRITIN (09/06/2018 8:32 AM EST) Ferritin 8,298(H) 30 - 400 ng/mL 09/06/2018 9:37 AM EST [facility] Blood VENOUS BLOOD / Unknown Venipuncture / Unknown 09/06/2018 8:32 AM EST 09/06/2018 8:40 AM EST Narrative zlien - 09/06/2018 9:37 AM EST Ingestion of mariela doses of biotin (>5 mg/day) taken within 8 hours of drawing blood sample can interfere with this immunoassay test. us Mukesh Bryson MD CHEMISTRY ORDERABLES Final R esult Performing Organization Address [facility] Co de Phone Number [facility] [address] [facility] , [place] [address] * US RIGHT UPPER QUADRANT (09/06/2018 2:22 AM EST) Anatomical Region Laterality Modality Abdomen Ultrasound 09/06/2018 2:22 AM EST Impressions 09/06/2018 2:32 AM EST Hepatic cirrhosis in an otherwise unremarkable right upper quadrant ultrasound. Narrative 09/06/2018 2:32 AM EST CLINICAL HISTORY: -abnormal hepatic fx. COMPARISON: Earlier today. TECHNIQUE: US RIGHT UPPER QUADRANT on 09/06/2018 2:22 AM. FINDINGS: The liver was cirrhotic without a focal lesion. There was no evidence of biliary ductal dilation. The gallbladder was normal without shadowing calculus, wall thickening, or pericholecystic fluid. A sonographic Sarmiento's sign was not elicited. The visualized portions of the pancreas and right kidney were unremarkable. Procedure Note Markie Ellis MD - 09/06/2018 CLINICAL HISTORY: -abnormal hepatic fx. COMPARISON: Earlier today. TECHNIQUE: US RIGHT UPPER QUADRANT on 09/06/2018 2:22 AM. FINDINGS: The liver was cirrhotic without a focal lesion. There was noevidence of biliary ductal dilation. The gallbladder was normal without shadowing calculus, wall thickening,or pericholecystic fluid. A sonographic Sarmiento's sign was not elicited. The visualized portions of the pancreas and right kidney wereunremarkable. IMPRESSION: Hepatic cirrhosis in an otherwise unremarkable right upper quadrant ultrasound. Farhana Calebjass WERNER IMG US ORDERABLES Final Res ult * (ABNORMAL) TROPONIN-T HIGH SENSITIVITY (09/06/2018 1:42 AM EST) Only the most recent of2 resultswithin the time period is included. if-pKvjbrlsm-U 23(H) <22 ng/L 09/06/2018 2:22 AM EST [facility] Comment: See the website below for rule out [place] care pathway, conditions other than AMI that can cause elevated hs cTnT, and comparison of values from the 4th and 5th generation James tests. [email or web address]/[email or web address] Blood VENOUS BLOOD / Unknown Venipuncture / Unknown 09/06/2018 1:42 AM EST 09/06/2018 1:49 AM EST Narrative zlien - 09/06/2018 2:22 AM EST Ingestion of mariela doses of biotin (>5 mg/day) taken within 8 hours of drawing blood sample can interfere with this immunoassay test. Farhana Calebjass WERNER CHEMISTRY ORDERABLES Final Result [facility] [address] [facility] , [address] [place] [id number] * CT ABDOMEN PELVIS WO ORAL OR IV CONTRAST (09/06/2018 1:09 AM EST) Anatomical Region Laterality Modality Abdomen, Pelvis Computed Tomogra phy 09/06/2018 1:09 AM EST Impressions 09/06/2018 1:25 AM EST 1. No acute findings. 2. Incidental findings as described Narrative 09/06/2018 1:25 AM EST CLINICAL HISTORY: -abd pain. COMPARISON: None. TECHNIQUE: CT ABDOMEN PELVIS WO ORAL OR IV CONTRAST on 09/06/2018 1:09 AM. FINDINGS: ABDOMEN: There is atelectasis at the lung bases. Coronary artery and aortic valve calcifications are noted. The liver is cirrhotic. The unenhanced gallbladder, spleen, pancreas, adrenal glands, and kidneys are normal. The caliber of the small bowel is normal. There are no enlarged abdominal lymph nodes or free fluid. The caliber of the abdominal aorta is normal. The spine is unremarkable. Pelvis: The caliber of the colon is normal. The appendix is unremarkable. There are no enlarged pelvic lymph nodes or free fluid. The urinary bladder and prostate gland are normal. The bony pelvis is unremarkable. Procedure Note Markie Ellis MD - 09/06/2018 CLINICAL HISTORY: -abd pain. COMPARISON: None. TECHNIQUE: CT ABDOMEN PELVIS WO ORAL OR IV CONTRAST on 09/06/2018 1:09 AM. FINDINGS: ABDOMEN: There is atelectasis at the lung bases. Coronary artery andaortic valve calcifications are noted. The liver is cirrhotic. The unenhanced gallbladder, spleen, pancreas,adrenal glands, and kidneys are normal. The caliber of the small bowel is normal.There are no enlarged abdominal lymph nodes or free fluid. The caliber of the abdominal aorta is normal. The spine is unremarkable. Pelvis: The caliber of the colon is normal. The appendix is unremarkable.There are no enlarged pelvic lymph nodes or free fluid. The urinary bladderand prostate gland are normal. The bony pelvis is unremarkable. IMPRESSION: 1. No acute findings. 2. Incidental findings as described Farhana Potter APRN [facility] CT ORDERABLES Final Res ult * (ABNORMAL) BLOOD GAS ARTERIAL (09/06/2018 12:19 AM EST) pH 7.44 7.35 - 7.45 pH 09/06/2018 12:24 AM EST [facility] pCO2 34(L) 35 - 45 mmHg 09/06/2018 12:24 AM EST [facility] pO2 73(L) 80 - 100 mmHg 09/06/2018 12:24 AM EST [facility] HCO3 22.8 22.0 - 26.0 mmol/L 09/06/2018 12:24 AM EST [facility] TCO2 22 22 - 29 mmol/L 09/06/2018 12:24 AM EST [facility] Base Excess -0.5 -2.0 - 3.0 mmol/L 09/06/2018 12:24 AM EST [facility] O2 Sat 95.5 95.0 - 98.0 % 09/06/2018 12:24 AM EST [facility] [employer] O2 ra 09/06/2018 12:24 AM EST [facility] Blood Venipuncture / Unknown 09/06/2018 12:19 AM EST 09/06/2018 12:19 AM EST Farhana Potter APRN CHEMISTRY ORDERABLES Final Result [address] , [place] [address] * PARTIAL THROMBOPLASTIN TIME (09/06/2018 12:09 AM EST) PTT 26.5 26.0 - 36.4 second(s) 09/06/2018 1:22 AM EST [facility] Comment: Therapeutic range for unfractionated heparin: 53.0 - 94.4 seconds Therapeutic range for direct thrombin inhibitors: Argatroban is 1.5 to 3 times the aPTT baseline. Lepirudin is 1.5 to 2 times the aPTT baseline. The aPTT should not exceed 100 seconds. The dosage of Argatroban should be decreased in patients with hepatic impairment. The dosage of Lepirudin should be decreased in renal insufficiency. Blood ARTERIAL BLOOD / Unknown Arterial / Unknown 09/06/2018 12:09 AM EST 09/06/2018 12:16 AM EST Farhana Potter APRN HEMATOLOGY ORDERABLES Final Result [facility] [address] [facility] , [place] [address] * PHOSPHORUS LEVEL (09/06/2018 12:09 AM EST) Phosphorus 3.1 2.5 - 4.5 mg/dL 09/06/2018 12:43 AM EST [facility] ARTERIAL BLOOD / Unknown Arterial / Unknown 09/06/2018 12:09 AM EST 09/06/2018 12:16 AM EST Farhana Potter [employer] CHEMISTRY ORDERABLES Final Result Performing Organization Address [facility] Co de Phone Number [email or web address] [address] [place] [address] , [place] [address] * NT PROBNP (09/06/2018 12:09 AM EST) Only the most recent of2 resultswithin the time period is included. NT Pro-BNP 126 <=718 pg/mL 09/06/2018 12:54 AM EST [facility] Blood ARTERIAL BLOOD / Unknown Arterial / Unknown 09/06/2018 12:09 AM EST 09/06/2018 12:16 AM EST Narrative zlien - 09/06/2018 12:54 AM EST An NT pro-BNP level less than 300 pg/mL in any patient, regardless of age, effectively rules out acute CHF with a 99% negative predictive value. Farhana Hearnely [employer] HEL[employer] CHEMISTRY ORDERABLES Final Result Performing Organization Address [facility] de Phone Number [facility] [address] [facility] , [place] [address] * MAGNESIUM LEVEL (09/06/2018 12:09 AM EST) Magnesium 1.9 1.6 - 2.4 mg/dL 09/06/2018 12:43 AM EST [facility] Blood ARTERIAL BLOOD / Unknown Arterial / Unknown 09/06/2018 12:09 AM EST 09/06/2018 12:16 AM EST Farhana Potter [employer] CHEMISTRY ORDERABLES Final Result Performing Organization Address [facility] Co de Phone Number [facility] [address] [place] [address] , [address] [place] [id number] * CT CHEST W CONTRAST (06/20/2015 1:19 PM EST) Anatomical Region Laterality Modality Chest Computed Tomogra phy Impressions 06/21/2015 4:43 PM EST : 1. Extensive coronary artery calcifications without evidence of acute intrathoracic process. 2. Old granulomatous disease with several enlarged lymph nodes in the upper abdomen, two of which are eccentrically calcified. These may relate to old granulomatous disease but recommend follow up CT of the abdomen in six months to confirm stability. 3. Fatty infiltration of the liver. Lakshmi Wolf MD. Narrative 06/21/2015 4:43 PM EST EXAMINATION: CT Chest With Contrast Dated 06/20/2015. CLINICAL HISTORY: Cough with prior history of tobacco use. COMPARISON: None. TECHNIQUE: Multiple axial images through the chest were obtained following administration of intravenous contrast. This data was used to perform coronal reconstructions. FINDINGS: The heart is normal in size. There are fairly dense coronary artery calcifications. There are granulomatous calcifications within the mediastinum and right hilum. There is no pathologic intrathoracic adenopathy. There is a cluster of nodularity within the right middle lobe just anterior to the major fissure. This is partially calcified and is compatible with old granulomatous disease. The lungs are otherwise clear and the visualized airways are patent. Intra-abdominally, the liver is fatty infiltrated. There is a 1.6 x 2.5-cm eccentrically calcified lymph node medial to the common hepatic artery. There is a 1.2 x 1.8-cm noncalcified lymph node in the judson hepatis. There is a 2.6 x 1.6-cm eccentrically calcified portacaval lymph node. The visualized upper abdominal structures are otherwise unremarkable. There are mild degenerative changes of the lower thoracic spine. us Onel Boudreaux MD IM CT ORDERABLES Final Result * TROPONIN-T (07/17/2014 3:14 AM EST) Only the most recent of2 resultswithin the time period is included. Troponin-T <0.01 <=0.02 ng/mL [facility] Comment: < 0.03 No detectable myocardial injury 0.03 - 0.10 Possible myocardial injury > 0.10 Indicative of myocardial injury Blood specimen (specimen) 07/17/2014 3:14 AM EST 07/17/2014 3:17 AM EST us Taco Pelayo MD CHEMISTRY ORDERABLES Final Resu lt Performing Organization Address [facility]/ZIP Co de Phone Number [facility] [address] [place] [address] * DIFFERENTIAL (07/17/2014 1:20 AM EST) Neut Percent 69.9 % [facility] Lymph Percent 18.8 % [facility] [place] Percent 6.4 % [facility] Eos Percent 4.1 % [facility] Baso Percent 0.8 % [facility] Neut# 3.8 1.8 - 7.7 x10(3)/mcL [facility] Lymph# 1.0 0.6 - 4.8 x10(3)/mcL [facility] [place]# 0.4 0.0 - 1.3 x10(3)/mcL [facility] Eos# 0.2 0.0 - 0.5 x10(3)/mcL [facility] Baso# 0.0 0.0 - 0.2 x10(3)/[facility] Blood specimen (specimen) 07/17/2014 1:20 AM EST 07/17/2014 1:52 AM EST us Taco Pelayo MD HEMATOLOGY ORDERABLES Final Res ult Performing Organization Address [facility] Co de Phone Number [facility] [address] [place] [address] Visit Diagnoses Diagnosis Start Date Acute asthmatic bronchitis, mild intermittent 07/17/2014 Gastrointestinal hemorrhage, unspecified gastrointestinal hemorrhage type 09/07/2018 Upper GI bleed Hemorrhage of gastrointestinal tract, unspecified 05/30/2022 Melena Blood in stool 05/30/2022 GI bleed Hemorrhage of gastrointestinal tract, unspecified 09/05/2018 GIOVANNY (acute kidney injury) Acute kidney failure, unspecified 09/05/2018 CAD (coronary artery disease) Coronary atherosclerosis of unspecified type of vessel, [place] or graft 09/05/2018 Diabetes mellitus type 2 in obese Type II or unspecified type diabetes mellitus without mention of complication, not stated as uncontrolled 09/05/2018 Obese Obesity, unspecified 09/05/2018 Prostate cancer (HCC) Malignant neoplasm of prostate 09/05/2018 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 09/05/2018 Anemia Anemia, unspecified 09/05/2018 Elevated LFTs Other abnormal blood chemistry 09/05/2018 Gastric ulcer without hemorrhage or perforation Gastric ulcer, unspecified as acute or chronic, without mention of hemorrhage, perforation, or obstruction 09/05/2018 Esophagitis Esophagitis, unspecified 09/05/2018 Esophageal varices without bleeding (HCC) Esophageal varices without mention of bleeding 09/05/2018 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 05/30/2022 Diabetes mellitus type 2 in obese Type II or unspecified type diabetes mellitus without mention of complication, not stated as uncontrolled 05/30/2022 Prostate cancer (HCC) Malignant neoplasm of prostate 05/30/2022 Esophageal varices without bleeding (HCC) Esophageal varices without mention of bleeding 05/30/2022 CAD (coronary artery disease) Coronary atherosclerosis of unspecified type of vessel, [place] or graft 05/30/2022 Chronic gastric ulcer without hemorrhage and without perforation 05/30/2022 Esophagitis Esophagitis, unspecified 05/30/2022 Upper GI bleed Hemorrhage of gastrointestinal tract, unspecified 05/30/2022 Melena Blood in stool 05/30/2022 Normocytic anemia Anemia, unspecified 05/30/2022 Hypothyroidism Unspecified hypothyroidism 05/30/2022 Care Teams [employer] Assembler Relationship Specialty Start Date End Date Onel Boudreaux MD PCP - General Family Medicine 07/17/14
== END 2024-12-13 23:59 | disposition home or self-care (01) ==
LOC: RAD 10:50
PROVIDERS: PCP Family Medicine; Visit Provider Family Medicine
DX: K74.60 Unspecified cirrhosis of liver (principal); D73.2 Chronic congestive splenomegaly; Z85.46 Personal history of malignant neoplasm of prostate
CPT/HCPCS: 74150

== ENCOUNTER 2025-01-19 11:46 | Outpatient (CLI) | payer MEDICARE, SELFPAY ==
[2025-01-19 15:16] LABS: Hematocrit 39.7 % (42.0-52.0); Hemoglobin 13.0 g/dL (14.1-18.0); Immature Granulocytes % 0.3 %; Mean Corpuscular HGB Conc 32.7 g/dL (31.8-35.4); Mean Corpuscular Hemoglobin 30.2 pg (27.0-31.2); Mean Corpuscular Volume 92.1 fl (80-94); Nucleated Red Blood Cells % 0 %; Platelet Count 151 K/mm3 (142-424); Red Blood Count 4.31 M/mm3 (4.60-6.20); Red Cell Distribution Width-SD 45.5 fL; White Blood Count 4.0 K/mm3 (4.8-10.8)
[2025-01-19 16:01] LABS: Alanine Aminotransferase 28 U/L (12-78); Albumin Level 3.8 g/dl (3.5-5.0); Albumin/Globulin Ratio 1.2 (1.1-1.8); Alkaline Phosphatase 65 U/L (38-126); Anion Gap 9.3 mEq/L (5-15); Aspartate Amino Transferase 39 U/L (17-59); Bilirubin,Total 0.5 mg/dl (0.2-1.3); Blood Urea Nitrogen 17 mg/dl (9-20); Calcium 8.8 mg/dl (8.4-10.2); Carbon Dioxide 29 mmol/L (22.0-30.0); Chloride 103 mmol/L (98-107); Creatinine,Serum 1.00 mg/dl (0.66-1.25); Estimated Glomerular Filt Rate 72 ml/min (>60); GFR (African American) 87 ML/MIN (>60); Globulin 3.1 g/dL (1.3-3.2); Glucose 196 mg/dl (74-100); Potassium 4.3 mmoL/L (3.5-5.1); Sodium 137 mmol/L (136-145); Total Protein,Serum 6.9 g/dl (6.3-8.2)
[2025-01-19 16:27] LABS: Thyroid Stimulating Hormone 2.43 uIU/mL (0.465-4.68)
--- OUTSIDE RECORDS SUMMARY | 2025-01-22 10:19 | XMS_ITS | Encounter Summary ---
Author Organization [facility] Address [address] [place] [address] Care Team Providers Care Roll Grinder Operator Name Role Phone Onel Boudreaux MD Primary Care Provider [phone] Encounter Details Date Type Department Care Team (Late st Contact Info) Description 03/08/2023 Ophth Exam [facility] [address] [place] [address] Terra Khan MD [address] [place] [address] Social History Tobacco Use Types [...] on filedocumented in this encounter Care Teams Roll Grinder Operator Relationship Specialty Start Date End Date Onel Boudreaux MD PCP - General 07/02/22 documented as of this encounter
--- OUTSIDE RECORDS SUMMARY | 2025-01-22 10:19 | XMS_ITS | Clinical Summary ---
Author Organization [facility] Address [address] [place] [address] Phone Care Team Providers Care Hotel Server Name Role Phone Dewayne Hong MD Primary [...] - 1-dose 75+ series) 2017 Influenza Vaccine (#1) 2025 HPV Aged Out No longer eligi ble based on patient's age to complete this topic Meningococcal conjugate mee nt 4 (MCV4) Aged Out No longer eligible b ased on patient's age to complete this topic RSV Immunization (<20 months) Aged Out No longer eligible based on patient's age to complete this topic Care Teams Hotel Server Relationship Specialty Start Date End Date Dewayne Hong MD PCP - General 04/18/01
--- OUTSIDE RECORDS SUMMARY | 2025-01-22 10:19 | XMS_ITS | Continuity of Care Document ---
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 [address] Loly Andujar MD Bazydlo, Kenneth C, MD Upper GI bleed (Primary Dx); Melena Discharge Disposition: Home or Self Care 2 Travel 9 Telephone [facility] [address] [place] [address] Gabriela Christie 9 11:42 PM EST - 9 1:49 PM EDT Hospital Encounter [place] [address] Shmuel Rapp MD Discharge Disposition: Home Health Care Svc 9 1:50 PM EST Anesthesia Event [facility] ENDOSCOPY [facility] [address] [place] [phone] Peace Cheng MD 9 1:00 PM EST - 9 1:15 PM EST Surgery [facility] ENDOSCOPY [facility] [place] [address] Asha Jackson MD ESOPHAGOGASTRODUODENOSCOPY (ANESTHESIA) 5 12:59 AM EST - 5 5:02 AM EST Emergency [facility] [address] [place] [address] Taco Pelayo MD Acute asthmatic bronchitis, mild [...] Sister Social History Smoking Status as of 01/22/2025 Tobacco Use Types Packs/Day Years Used Date [...] as he sees a liver specialist at [facility] in [place]. Presented to the ER with reports of black stool that began 5 days ago.Last bowel movement was actually 2 days ago. Denies diarrhea. Nohematemesis. No abdominal pain. No NSAID use. He had a recent colonoscopy and EGD in [place], within the past 2weeks. States there were [...] 20 mEq octreotide (SandoSTATIN) infusion 50 mcg/hr (05/31/22712) Allergies: Allergies Allergen Reactions Jardiance [Empagliflozin] Other [...] 09/07/2018 ESOPHAGOGASTRODUODENOSCOPY ; Surgeon: Asha Jackson MD;Location: [facility] END[facility]; Service: Endoscopy Family History: Family History [...] Date 05/31/22 0700 - 06/01/22 0659 Shift [id number] [id number] 6589-0843 24 Hour Total INTAKE I.V.(mL/kg/hr) 332.9 332.9 [...] the past by [facility] specialist in [place]. He is nadolol. 3. Hx PUD, GERD. [...] 11:47 PM EST IP CONSULT TO MEDICAL FIELD TRAINER Routine 09/05/2018 11:47 PM EST Procedure Note [...] stent [facility] ground em[facility] and darkstools. [...] 26.8* 28.1* PLT 196 -- Recent Labs 09/06/18 000 INR 1.49* PTT 26.5 GI & NUTRITION [...] Final Interpretation byphysician to follow. 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 Neut Percent 63.6 % 06/01/2022 9:06 AM EST [facility] Comment:Neutrophils equals s egs plus bands Imm Gran% 0.3 % 06/01/2022 9:06 AM EST [facility] Comment:Automated count of m etamyelocytes, myelocytes and promyelocytes. Lymph Percent 22.0 % 06/01/2022 9:06 AM EST [facility] Lake Percent 9.1 % 06/01/2022 9:06 AM EST [facility] Eos Percent 4.3 % 06/01/2022 9:06 AM EST [facility] Baso Percent 0.7 % 06/01/2022 9:06 AM EST [facility] Neut # 4.4 1.6 - 6.1 x10(3)/[facility] 06/01/2022 9:06 AM EST [facility] Comment:Neutrophils equals s egs plus bands IMMGRAN# 0.0 0.0 - 0.1 x10(3)/[facility] 06/01/2022 9:06 AM EST [facility] Comment:Automated count of m etamyelocytes, myelocytes and promyelocytes. An absolute IG <0.1 is reported as 0.0. Lymph # 1.5 1.2 - 3.9 x10(3)/[facility] 06/01/2022 9:06 AM EST [facility] Lake # 0.6 0.3 - 0.9 x10(3)/[facility] 06/01/2022 9:06 AM EST [facility] Eos# 0.3 0.0 - 0.5 x10(3)/[facility] 06/01/2022 9:06 AM EST [facility] Baso # 0.1 0.0 - 0.1 x10(3)/[facility] 06/01/2022 9:06 AM EST [facility] Blood VENOUS BLOOD / Unknown Venipuncture / Unknown 06/01/2022 7:29 AM EST 06/01/2022 8:49 AM EST Octavia Drew MD HEMATOLOGY ORDERABLES Fi nal Result Performing Organization Address [facility]/ZIP Co de Phone Number [facility] [address], [place] [address] * (ABNORMAL) BASIC METABOLIC PANEL (06/01/2022 7:29 AM EST) Only the most recent of11 resultswithin the time period is included. Sodium 138 136 - 145 mmol/L 06/01/2022 9:32 AM EST [facility] Potassium 4.2 3.5 - 5.0 mmol/L 06/01/2022 9:32 AM EST [facility] Chloride 100 98 - 107 mmol/L 06/01/2022 9:32 AM EST [facility] Total CO2 30(H) 22 - 29 mmol/L 06/01/2022 9:32 AM EST [facility] Anion Gap 8 7 - 16 mmol/L 06/01/2022 9:32 AM EST [facility] Calcium 8.4(L) 8.8 - 10.4 mg/dL 06/01/2022 9:32 AM EST [facility] Glucose Lvl 147(H) 82 - 100 mg/dL 06/01/2022 9:32 AM EST [facility] BUN 22 8 - 23 mg/dL 06/01/2022 9:32 AM EST [facility] Creatinine 1.36(H) 0.67 - 1.30 mg/dL 06/01/2022 9:32 AM EST [facility] eGFR (CKD-EPIcr 2020) 53(L) >=60 mL/min/1.7 3 m2 06/01/2022 9:32 AM EST [facility] Comment:Estimated GFR was ca lculated using the CKD-EPIcr (2020) equation refit without race. The equation is recommended by the National Kidney Foundation - [place] [employer] of Nephrology Task Force. Blood VENOUS BLOOD / Unknown Venipuncture / Unknown 06/01/2022 7:29 AM EST 06/01/2022 8:50 AM EST us Octavia Drew MD CHEMISTRY ORDERABLES Fin al Result Performing Organization Address City/[facility]/ZIP Co de Phone Number [facility] [address], [address] [place] [phone] [facility] [address] [place] [address] * ECG AND WAVEFORMS - TELEMETRY (06/01/2022 7:00 AM EST) Only the most recent of14 resultswithin the time period is included. ECG INTERPRET Sinus Bradycardia [facility] 06/01/2022 7:00 AM EST Narrative [facility] - 06/01/2022 9:18 AM EST /JPL/HICUITY/ROUTINE MA 0.18 QRS 0.08 RR 1.24 QT 0.48 QTc 0.43 See Clinical Report link for waveform capture us Unknown Provider POINT OF CARE CARDIOLOGY Final Result Performing Organization Address [facility] Co de Phone Number [facility] [address] [place] [address] * (ABNORMAL) GLUCOSE METER POC (06/01/2022 6:12 AM EST) Only the most recent of38 resultswithin the time period is included. [facility] Glucose Meter POC 153(H) 70 - 100 mg/dL 06/01/2022 6:14 AM EST [facility] Sample Type Capillary 06/01/2022 6:14 AM EST [facility] Patient Status Non-Critical Patient 06/01/2022 6:14 AM EST [facility] Blood BLOOD SPECIMEN / Unknown 06/01/2022 6:12 AM EST 06/01/2022 6:14 AM EST us Ronnie Garcia MD POINT OF CARE TEST ORDERABL ES Final Result Performing Organization Address City/[facility]/ZIP Co de Phone Number [facility] [address] [place] [address] * POTASSIUM REPEAT (05/30/2022 8:47 PM EST) Potassium 4.3 3.5 - 5.0 mmol/L 05/30/2022 9:20 PM EST [facility] Blood VENOUS BLOOD / Unknown Venipuncture / Unknown 05/30/2022 8:47 PM EST 05/30/2022 9:00 PM EST us Octavia Drew MD CHEMISTRY ORDERABLES Fin al Result Performing Organization Address [facility] Co de Phone Number [facility], [address] , [place] [address] * (ABNORMAL) HEMOGLOBIN AND HEMATOCRIT (05/30/2022 8:47 PM EST) Only the most recent of11 resultswithin the time period is included. Hgb 12.4(L) 13.7 - 17.5 g/dL 05/30/2022 9:03 PM EST [facility] Hct 38.4(L) 40.0 - 51.0 % 05/30/2022 9:03 PM EST [facility] Blood VENOUS BLOOD / Unknown Venipuncture / Unknown 05/30/2022 8:47 PM EST 05/30/2022 8:58 PM EST Ralph Kang MD HEMATOLOGY ORDERABLES Final Re sult Performing Organization Address [facility] Co de Phone Number [facility], [address] , [place] [address] * (ABNORMAL) RETICULOCYTE PANEL DIAGNOSTIC (05/30/2022 11:03 AM EST) Retic Cnt Auto 2.2 0.9 - 2.5 % 05/30/2022 11:32 AM EST [facility] Retic # 88.5 40.0 - 110.0 x10(3)/mcL 05/30/2022 11:32 AM EST [facility] Imm. Retic Fraction % 19.3(H) 3.1 - 17.6 % 05/30/2022 11:32 AM EST [facility] Retic Hgb 34.0 28.0 - 38.0 pg 05/30/2022 11:32 AM EST [facility] Blood VENOUS BLOOD / Unknown Venipuncture / Unknown 05/30/2022 11:03 AM EST 05/30/2022 11:20 AM EST Narrative [facility] - 05/30/2022 11:32 AM EST Reticulocyte hemoglobin [...] 142:506-512. (4)Goodnough, L., et al. 2010. Blood 116:[id number]. us Octavia Drew MD HEMATOLOGY ORDERABLES [facility] Result [facility] [address], [place] [address] * TSH REFLEX (05/30/2022 11:03 AM EST) Only the most recent of2 resultswithin the time period is included. TSH Reflex 1.120 0.270 - 4.200 mcIU/mL 05/30/2022 12:02 PM EST [facility] Blood VENOUS BLOOD / Unknown Venipuncture / Unknown 05/30/2022 11:03 AM EST 05/30/2022 11:21 AM EST Narrative [facility] - 05/30/2022 12:02 PM EST Ingestion of mariela doses of biotin (>5 mg/day) taken within 8 hours of drawing blood sample can interfere with this immunoassay test. Octavia Drew MD CHEMISTRY ORDERABLES Fin al Result Performing Organization Address City/[facility] Co de Phone Number [facility] [address] [place] [address] , [facility] [place] [address] * (ABNORMAL) HEMOGLOBIN A1C (05/30/2022 11:03 AM EST) Only the most recent of2 resultswithin the time period is included. Hgb A1C 8.5(H) 4.2 - 5.6 % 05/30/2022 11:58 AM EST [facility] Est. Avg Glucose 197 mg/dL 05/30/2022 11:58 AM EST [facility] Blood VENOUS BLOOD / Unknown Venipuncture / Unknown 05/30/2022 11:03 AM EST 05/30/2022 11:20 AM EST Narrative [facility] - 05/30/2022 11:58 AM EST REFERENCE RANGE: Normal: 4.0-5.6% Pre-diabetes: 5.7-6.4% Provisional diagnosis of diabetes: >6.4% Hgb F>10% and anything which shortens red cell survival, such as hemolytic anemia, or unstable hemoglobin variants such as HbSS, HbSC, or HbCC, will lower the HbA1c value associated with a given level of glycemic control. Octavia Drew MD CHEMISTRY ORDERABLES Fin al Result Performing Organization Address [facility] Co de Phone Number [facility] [address] [place] [address] , [facility] [place] [address] * EXTRA PRETTY URINE CX (05/30/2022 4:05 AM EST) Urine URINE SPECIMEN COLLECTION, CLEAN CATCH / Unknown 05/30/2022 4:05 AM EST 05/30/2022 4:10 AM EST Loly Andujar MD MICROBIOLOGY - GENERAL MOOSE CUI Final Result Performing Organization Address City/[facility]/ZIP Co de Phone Number [facility] [address] [place] [phone] * URINALYSIS (05/30/2022 4:05 AM EST) UA Color Light Yellow 05/30/2022 4:13 AM EST [facility] UA Appear Clear Clear 05/30/2022 4:13 AM EST [facility] UA Glucose Negative Negative mg/dL 05/30/2022 4:13 AM EST [facility] UA Ketones Negative Negative mg/dL 05/30/2022 4:13 AM EST [facility] UA Blood Negative Negative 05/30/2022 4:13 AM EST [facility] UA pH 6.0 5.0 - 8.0 pH 05/30/2022 4:13 AM EST [facility] UA Protein Negative Negative mg/dL 05/30/2022 4:13 AM EST [facility] UA Urobilinogen Normal <=1 mg/dL 4:13 AM EST [facility] UA Bili Negative Negative 05/30/2022 4:13 AM EST [facility] UA Nitrite Negative Negative 05/30/2022 4:13 AM EST [facility] UA Leuk Est Negative Negative 05/30/2022 4:13 AM EST [facility] UA Spec Grav 1.018 1.001 - 1.035 no units 05/30/2022 4:13 AM EST [facility] Comment:Reference range niharika d for random specimens only. Urine URINE SPECIMEN COLLECTION, CLEAN CATCH / Unknown 05/30/2022 4:05 AM EST 05/30/2022 4:10 AM EST us Loly Andujar MD URINE ORDERABLES Final Resu lt [facility] [address] , [place] [address] * BB HISTORY CHECK (05/30/2022 3:56 AM EST) Only the most recent of2 resultswithin the time period is included. BB HISTORY CHECK (1) Previous History OK 05/30/2022 4:22 AM EST [facility] Blood VENOUS BLOOD / Unknown Venipuncture / Unknown 05/30/2022 3:56 AM EST 05/30/2022 4:05 AM EST Result [facility] Loly Andujar MD BLOOD BANK ORDERABLES Final Result Performing Organization Address City/[facility] [place] [address] * ABORH (05/30/2022 3:56 AM EST) Only the most recent of2 resultswithin the time period is included. ABORH Int A POS 05/30/2022 5:0 8 AM EST [facility] BLOOD [facility] Blood VENOUS BLOOD / Unknown Venipuncture / Unknown 05/30/2022 3:56 AM EST 05/30/2022 4:05 AM EST Loly Andujar MD BLOOD BANK ORDERABLES Final Result Performing Organization Address [facility] Co de Phone Number [place] [phone] * (ABNORMAL) PT / INR (05/30/2022 3:56 AM EST) Only the most recent of10 resultswithin the time period is included. PT 14.4(H) 10.0 - 13.1 second(s) 05/30/2022 4:15 AM EST [facility] INR 1.22(H) 0.86 - 1.12 (ratio) 05/30/2022 4:15 AM EST [facility] Comment: Level of Therapy Indications Target INR Range Standard Dose Treatment and prophylaxis of venous 2.0 - 3.0 thrombosis, pulmonary embolism High Dose High risk patients with mechanical 2.5 - 3.5 heart valves Blood VENOUS BLOOD / Unknown Venipuncture / Unknown 05/30/2022 3:56 AM EST 05/30/2022 4:05 AM EST Loly Andujar MD HEMATOLOGY ORDERABLES Final Result [facility] [address] [place] [address] * ANTIBODY SCREEN IGG (05/30/2022 3:56 AM EST) Only the most recent of2 resultswithin the time period is included. Pathologist [facility] ABSC IgG Int Negative 05/30/2022 5:19 AM EST [facility] Blood VENOUS BLOOD / Unknown Venipuncture / Unknown 05/30/2022 3:56 AM EST 05/30/2022 4:05 AM EST Loly Andujar MD BLOOD BANK ORDERABLES Final Result Performing Organization Address [facility] Co de Phone Number [facility] [address] [place] [address] * (ABNORMAL) CBC (05/29/2022 9:57 PM EST) Only the most recent of3 resultswithin the time period is included. [facility] WBC 8.3 3.7 - 10.3 x10(3)/mcL 05/29/2022 10:02 PM EST [facility] RBC 4.38(L) 4.60 - 6.10 x10(6)/mcL 05/29/2022 10:02 PM EST [facility] Hgb 12.6(L) 13.7 - 17.5 g/dL 05/29/2022 10:02 PM EST [facility] Hct 39.8(L) 40.0 - 51.0 % 05/29/2022 10:02 PM EST [facility] MCV 90.9 80.0 - 100.0 fL 05/29/2022 10:02 PM EST [facility] MCH 28.8 26.0 - 34.0 pg 05/29/2022 10:02 PM EST [facility] MCHC 31.7 30.7 - 35.5 g/dL 05/29/2022 10:02 PM EST [facility] RDW 13.4 <=14.9 % 05/29/2022 10:02 PM EST [facility] Platelet 228 155 - 369 x10(3)/mcL 05/29/2022 10:02 PM EST [facility] MPV 11.1 8.8 - 12.5 fL 05/29/2022 10:02 PM [facility] Blood VENOUS BLOOD / Unknown Venipuncture / Unknown 05/29/2022 9:57 PM EST 05/29/2022 9:58 PM EST us Loly Andujar MD HEMATOLOGY ORDERABLES Final Result [facility] [address] [place] [address] * (ABNORMAL) COMPREHENSIVE METABOLIC PANEL (05/29/2022 9:57 PM EST) Sodium 137 136 - 145 mmol/L 05/29/2022 10:17 PM [facility] Potassium 4.2 3.5 - 5.0 mmol/L 05/29/2022 10:17 PM [facility] Chloride 95(L) 98 - 107 mmol/L 05/29/2022 10:17 PM [facility] Total CO2 30(H) 22 - 29 mmol/L 05/29/2022 10:17 PM [facility] Anion Gap 12 7 - 16 mmol/L 05/29/2022 10:17 PM [facility] Calcium 9.8 8.8 - 10.4 mg/dL 05/29/2022 10:17 PM [facility] Glucose Lvl 173(H) 82 - 100 mg/dL 05/29/2022 10:17 PM [facility] BUN 19 8 - 23 mg/dL 05/29/2022 10:17 PM [facility] Creatinine 1.22 0.67 - 1.30 mg/dL 05/29/2022 10:17 PM [facility] Albumin 4.2 3.2 - 4.6 gm/dL 05/29/2022 10:17 PM [facility] Total Protein 7.7 6.4 - 8.3 gm/dL 05/29/2022 10:17 PM [facility] Bili Total 0.7 0.1 - 1.4 mg/dL 05/29/2022 10:17 PM EST [facility] ALT 28 <=41 U/L 05/29/2022 10:17 PM EST [facility] AST 34 <=40 U/L 05/29/2022 10:17 PM EST [facility] Alk Phos 63 40 - 129 U/L 05/29/2022 10:17 PM EST [facility] eGFR (CKD-EPIcr 2020) 60 >=60 mL/min/1.7 3 m2 05/29/2022 10:17 PM EST [facility] Comment:Estimated GFR was ca lculated using the CKD-EPIcr (2020) equation refit without race. The equation is recommended by the National Kidney Foundation - [place] [employer] of Nephrology Task Force. Blood VENOUS BLOOD / Unknown Venipuncture / Unknown 05/29/2022 9:57 PM EST 05/29/2022 9:59 PM EST us Loly Andujar MD CHEMISTRY ORDERAB[place] [address] * XR CHEST PA AND LATERAL (09/13/2018 [...] Final Result [facility] [address] , [place] [address] * (ABNORMAL) HEPATIC FUNCTION PANEL (09/10/2018 7:41 [...] ORDERABLES Final Res ult Performing Organization Address [facility] Co de Phone Number [facility], [address] , [place] [address] * [place] MODIFIED BARIUM SWALLOW (09/09/2018 3:53 PM EST) Narrative [facility] - 09/09/2018 3:54 PM EST Modified Barium Swallow was performed in the Radiology department by Speech Pathology. No Radiologist in attendance. No charge from [facility]. Refer to Speech Pathology for further information. us Damian Valenzuela MD IMG FLUOROSCOPY ORDERA BLES Final Result Performing Organization Address [facility] Co de Phone Number [facility] * MICROALBUMIN/CREATININE RATIO URINE (09/09/2018 11:12 AM EST) Urine Microalb 12.4 mg/L 09/09/2018 11:59 AM EST [facility] Urine Creatinine 119.8 mg/dL 09/09/2018 11:59 AM EST [facility] Ur Microalb/Creat 10 0 - 30 mg/g 09/09/2018 11:59 AM EST [facility] Urine STRUCTURE OF URINARY TRACT PROPER / Unknown 09/09/2018 11:12 AM EST 09/09/2018 11:16 AM EST us Mukesh Bryson MD URINE ORDERABLES Final Resul t Performing Organization Address [facility] Co de Phone Number [facility], [address] , [place] [address] * (ABNORMAL) IONIZED CALCIUM - INPATIENT (09/09/2018 3:09 AM EST) Calcium Ionized 1.05(L) 1.12 - 1.32 mmol/L 09/09/2018 3:18 AM EST [facility] Blood VENOUS BLOOD / Unknown Butterfly / Unknown 09/09/2018 3:09 AM EST 09/09/2018 3:15 AM EST Mukesh Bryson MD CHEMISTRY ORDERABLES Final R esult [facility] [address] , [place] [address] * XR CHEST AP PORTABLE (09/08/2018 10:25 [...] contamination. 09/09/2018 6:42 AM EST [facility] Urine URINE SPECIMEN COLLECTION, CLEAN CATCH / Unknown 09/07/2018 7:28 PM EST 09/07/2018 7:33 PM EST Shobha Marks APRN MICROBIOLOGY - GENERAL ORDERABL ES Final Result Performing Organization Address [facility] Co de Phone Number [facility] [address], [place] [address] * INTRAOP AIRWAY PLACEMENT (09/07/2018 2:00 PM EST) Narrative [facility] - 09/07/2018 2:00 PM EST Tiesha So CRNA 09/07/2018 2:00 PM Intraop Airway Placement: Airway type: Nasal cannula salter Procedure Note Tiesha So CRNA - 09/07/2018 2:00 PM EST Intraop Airway Placement: Airway type: Nasal cannula salter Peace Cheng MD MA ANESTHESIA Final Result Performing Organization Address [facility] Co de Phone Number [facility] [address] [place] [address] * GMED EGD (09/07/2018 1:00 PM EST) 09/07/2018 1:00 PM EST Impressions [facility] - 09/07/2018 2:10 PM EST Varices [...] ORDERAB LES Final Result Performing Organization Address [facility]/ZIP Co de Phone Number [facility] [address] [place] [address] * (ABNORMAL) REPEAT LACTIC ACID (09/07/2018 10:47 AM EST) Only the most recent of4 resultswithin the time period is included. Lactic Acid 3.9(H) 0.5 - 1.9 mmol/L 09/07/2018 11:03 AM EST [facility] Blood VENOUS BLOOD / Unknown Butterfly / Unknown 09/07/2018 10:47 AM EST 09/07/2018 10:51 AM EST Damian Valenzuela MD CHEMISTRY ORDERABLES F inal Result Performing Organization Address [facility]/ZIP Co de Phone Number [facility] [address] [place] [address] * (ABNORMAL) LOWER RESPIRATORY CULTURE (STAIN INCLUDED) [...] not be used alone. us Shobha Marks PSYCHOLOGIST EXPERIMENTAL MICROBIOLOGY - GENERAL ORDERABL ES Final Result [facility], [address] , [place] [address] * (ABNORMAL) LACTIC ACID (09/07/2018 8:34 AM EST) Only the most recent of4 resultswithin the time period is included. Lactic Acid 4.2(H) 0.5 - 1.9 mmol/L 09/07/2018 9:02 AM EST [facility] Blood VENOUS BLOOD / Unknown Venipuncture / Unknown 09/07/2018 8:34 AM EST 09/07/2018 8:45 AM EST Damian Valenzuela MD CHEMISTRY ORDERABLES F inal Result [facility] [address] [place] [address] * (ABNORMAL) LIPASE LEVEL (09/07/2018 5:54 AM EST) Lipase Lvl 8(L) 13 - 60 IU/L 09/07/2018 6:30 AM EST [facility] Blood VENOUS BLOOD / Unknown Venipuncture / Unknown 09/07/2018 5:54 AM EST 09/07/2018 6:00 AM EST Silvio Jaramillo MD CHEMISTRY ORDERABLES Final R esult Performing Organization Address [facility] Co de Phone Number [facility] [address] [facility] , [place] [phone] * (ABNORMAL) AMYLASE LEVEL (09/07/2018 5:54 AM EST) Amylase Lvl 10(L) 28 - 100 IU/L 09/07/2018 6:30 AM EST [facility] Blood VENOUS BLOOD / Unknown Venipuncture / Unknown 09/07/2018 5:54 AM EST 09/07/2018 6:00 AM EST Silvio Jaramillo MD CHEMISTRY ORDERABLES Final R esult Performing Organization Address [facility] Co de Phone Number [facility] [address] [facility] , [place] [phone] * AMMONIA LEVEL (09/07/2018 5:54 AM EST) Only the most recent of2 resultswithin the time period is included. Ammonia 51 16 - 60 mcmol/L 09/07/2018 6:24 AM EST [facility] Blood VENOUS BLOOD / Unknown Venipuncture / Unknown 09/07/2018 5:54 AM EST 09/07/2018 6:00 AM EST Silvio Jaramillo MD CHEMISTRY ORDERABLES Final R esult Performing Organization Address [facility] de Phone Number [facility] [address] [place] [address] , [address] [place] [phone] * ACETAMINOPHEN LEVEL (09/07/2018 5:54 AM EST) Acetaminophen Lvl <15.0 mcg/mL 019 6:33 AM EST [facility] Blood VENOUS BLOOD / Unknown Venipuncture / Unknown 09/07/2018 5:54 AM EST 09/07/2018 6:00 AM EST Narrative [facility] - 09/07/2018 6:33 AM EST Therapeutic: 10-30 mcg/ml Supratherapeutic: > 35 mcg/ml Toxic: > 150 mcg/ml (4h post ingestion) > 75 mcg/ml (8h post ingestion) > 40 mcg/ml (12h post ingestion) Silvio Jaramillo MD CHEMISTRY ORDERABLES Final [facility] Performing Organization Address [facility] Co de Phone Number [facility] [address] [place] [address] , [place] [address] * US ABDOMEN PELVIS VASCULAR STUDY LIMITED [...] evaluation of the region of interest with client support representative images sent to PACS along with pattern stamper notes. FINDINGS: Grayscale, color Doppler, and spectral [...] sonographic evaluation of the region ofinterest with client support representative images sent to PACS along with pattern stamper notes. FINDINGS: Grayscale, color Doppler, and spectral [...] likely cirrhosis/hepatocellular disease. - - . Damian Lorna Valenzuela MD [facility] US ORDERABLES Baylee l Result * HEMOCHROMATOSIS MUTATION DETECTION, HEREDITARY -REF LAB (09/06/2018 3:11 PM EST) C282Y Negative 09/11/2018 2:27 PM EDT [facility] H63D Negative 09/11/2018 2:27 PM EDT [facility] S65C Negative 09/11/2018 2:27 PM EDT [facility] Hemochromatosis Mutation Inter See Note 09/11/2018 2:27 PM EDT [facility] Comment: Indication for testing: Carrier [...] variations. Test developed and characteristics determined by [facility]. See Compliance Statement C: [email or web address]/ Performed by [facility], [address] [place] [address] [email or web address], Guillermo Casey MD, Lab. Director HFE PCR specimen Whole Blood 019 2:27 PM EDT [facility] Blood Butterfly / Unknown 09/06/2018 3:11 PM EST 09/06/2018 3:11 PM EST Ursula Harris APRN IMMUNOLOGY ORDERABLES Final Re sult [facility] [address] [place] [address] * HSV TYPE 1,2, IGM-REF LAB (09/06/2018 3:11 PM EST) Pathologist [facility] HSV 1/2 IgM 0.29 <=0.89 IV 09/08/2018 12:32 AM EST [facility] Comment: INTERPRETIVE INFORMATION: Herpes Simplex Virus Type [...] more than 12 months post-infection. Performed by [facility], [address] [place] [id number] [email or web address], Guillermo Casey MD, Lab. Director Blood Butterfly / Unknown 09/06/2018 3:11 PM EST 09/06/2018 3:11 PM EST Ursula Harris APRN IMMUNOLOGY ORDERABLES Final Re sult [facility] [address] [place] [address] * (ABNORMAL) CMV IGG/IGM (09/06/2018 9:19 AM EST) Pathologist [facility] CMV IgG Positive(A) Negative, Equivocal 09/07/2018 10:52 AM EST [facility] CMV IgM Negative Negative, Equivocal 09/07/2018 10:52 AM EST [facility] Blood Butterfly / Unknown 09/06/2018 9:19 AM EST 09/06/2018 9:25 AM EST Narrative [facility] - 09/07/2018 10:52 AM EST A positive [...] Harris APRN IMMUNOLOGY ORDERABLES Final Re sult [facility] [address] [facility] , [place] [address] * EBV VIRAL CAPSID ANTIBODIES (09/06/2018 9:19 AM EST) EB VCA IgM <10.0 unit/mL 09/06/2018 12:24 PM EST [facility] Comment: Sample results should be interpreted as [...] IgG 623.0 unit/mL 09/06/2018 12:24 PM EST [facility] Comment: Sample results should be interpreted as [...] ORDERABLES Final Re sult Performing Organization Address [facility] de Phone Number [facility] [address], [place] [address] * ACUTE HEPATITIS PANEL (09/06/2018 9:19 AM EST) Only the most recent of2 resultswithin the time period is included. Hep Bs Ag Non-Reacti ve Non-Reacti ve 09/06/2018 11:15 AM EST [facility] Hep B Core IgM Non-Reacti ve Non-Reacti ve 09/06/2018 11:15 AM EST [facility] Hep A IgM Non-Reacti ve Non-Reacti ve 09/06/2018 11:15 AM EST [facility], [facility] Hep C Ab Non-Reacti ve Non-Reacti ve 09/06/2018 11:15 AM EST [facility] Blood Butterfly / Unknown 09/06/2018 9:19 AM EST 09/06/2018 9:25 AM EST Mukesh Bryson MD CHEMISTRY ORDERABLES Final R esult Performing Organization Address [facility] Phone Number [facility], [address] , [place] [address] * BLOOD CULTURE (NO STAIN) (09/06/2018 9:19 AM EST) Only the most recent of2 resultswithin the time period is included. Culture Result No Growth at 120 hours. BLOOD CULTURE (NO STAIN) 09/11/2018 11:00 AM EDT [facility] Blood VENOUS BLOOD / Unknown Butterfly / Unknown 09/06/2018 9:19 AM EST 09/06/2018 9:25 AM EST Mukesh Bryson MD MICROBIOLOGY - GENERAL ORDER CRYSTAL Final Result Performing Organization Address [facility]/ZIP Co de Phone Number [facility] [address] , [place] [address] * (ABNORMAL) FERRITIN (09/06/2018 8:32 AM EST) Ferritin 8,298(H) 30 - 400 ng/mL 09/06/2018 9:37 AM EST [facility] Blood VENOUS BLOOD / Unknown Venipuncture / Unknown 09/06/2018 8:32 AM EST 09/06/2018 8:40 AM EST Narrative [facility] - 09/06/2018 9:37 AM EST Ingestion of mariela doses of biotin (>5 mg/day) taken within 8 hours of drawing blood sample can interfere with this immunoassay test. us Mukesh Bryson MD CHEMISTRY ORDERABLES Final R esult Performing Organization Address [facility] Co de Phone Number [facility] [address] [facility] , [place] [address] * US RIGHT UPPER QUADRANT (09/06/2018 2:22 AM EST) Anatomical Region Laterality Modality Abdomen Ultrasound 09/06/2018 2:2 2 AM EST Impressions 09/06/2018 2:32 AM EST [...] otherwise unremarkable right upper quadrant ultrasound. Farhana Caleb WERNER IMG US ORDERABLES Final Res ult * (ABNORMAL) TROPONIN-T HIGH SENSITIVITY (09/06/2018 1:42 AM EST) Only the most recent of2 resultswithin the time period is included. [id number] 23(H) <22 ng/L 09/06/2018 2:22 AM EST [facility] Comment: See the website below for rule out MS care pathway, conditions other than AMI that can cause elevated hs cTnT, and comparison of values from the 4th and 5th generation James tests. [email or web address] Blood VENOUS BLOOD / Unknown Venipuncture / Unknown 09/06/2018 1:42 AM EST 09/06/2018 1:49 AM EST Narrative [facility] - 09/06/2018 2:22 AM EST Ingestion of mariela doses of biotin (>5 mg/day) taken within 8 hours of drawing blood sample can interfere with this immunoassay test. Farhana Caleb WERNER CHEMISTRY ORDERABLES Final Result [facility] [address] [facility] , [place] [address] * CT ABDOMEN PELVIS WO ORAL OR [...] Incidental findings as described Farhana Potter APRN [facility] CT ORDERABLES Final Res ult * (ABNORMAL) BLOOD GAS ARTERIAL (09/06/2018 12:19 AM EST) pH 7.44 7.35 - 7.45 pH 09/06/2018 12:24 AM EST [facility] pCO2 34(L) 35 - 45 mmHg 09/06/2018 12:24 AM EST [facility] pO2 73(L) 80 - 100 mmHg 09/06/2018 12:24 AM EST [facility] HCO3 22.8 22.0 - 26.0 mmol/L 09/06/2018 12:24 AM EST [facility] TCO2 22 22 - 29 mmol/L 09/06/2018 12:24 AM EST [facility] Base Excess -0.5 -2.0 - 3.0 mmol/L 09/06/2018 12:[address] [facility] O2 Sat 95.5 95.0 - 98.0 % 09/06/2018 12:[address] [facility] [employer] O2 ra 09/06/2018 12:24 AM EST [facility] Blood Venipuncture / Unknown 09/06/2018 12:19 AM EST 09/06/2018 12:19 AM EST Farhana Potter APRN CHEMISTRY ORDERABLES Final Result Performing Organization Address [facility] Co de Phone Number [address] , [place] [address] * PARTIAL THROMBOPLASTIN TIME (09/06/2018 12:09 AM EST) PTT 26.5 26.0 - 36.4 second(s) 09/06/2018 1:22 AM EST [facility] Comment: Therapeutic range for unfractionated heparin: 53.0 [...] Farhana Potter APRN HEMATOLOGY ORDERABLES Final Result Performing Organization Address City/[facility]/ZIP Co de Phone Number [address] , [place] [address] * PHOSPHORUS LEVEL (09/06/2018 12:09 AM EST) Phosphorus 3.1 2.5 - 4.5 mg/dL 09/06/2018 12:43 AM EST [facility] Blood ARTERIAL BLOOD / Unknown Arterial / Unknown 09/06/2018 12:09 AM EST 09/06/2018 12:16 AM EST Farhana Potter PSYCHOLOGIST EXPERIMENTAL CHEMISTRY ORDERABLES Final Result Performing Organization Address [facility] Co de Phone Number [facility] [address] [place] [address] , [place] [address] * NT PROBNP (09/06/2018 12:09 AM EST) Only the most recent of2 resultswithin the time period is included. NT Pro-BNP 126 <=718 pg/mL 09/06/2018 12:54 AM EST [facility] Blood ARTERIAL BLOOD / Unknown Arterial / Unknown 09/06/2018 12:09 AM EST 09/06/2018 12:16 AM EST Narrative [facility] - 09/06/2018 12:54 AM EST An NT pro-BNP level less than 300 pg/mL in any patient, regardless of age, effectively rules out acute CHF with a 99% negative predictive value. Farhana Hearnely PSYCHOLOGIST EXPERIMENTAL CHEMISTRY ORDERABLES Final Result Performing Organization Address [facility] de Phone Number [facility] [address] [facility] , [place] [address] * MAGNESIUM LEVEL (09/06/2018 12:09 AM EST) Magnesium 1.9 1.6 - 2.4 mg/dL 09/06/2018 12:43 AM EST [facility] Blood ARTERIAL BLOOD / Unknown Arterial / Unknown 09/06/2018 12:09 AM EST 09/06/2018 12:16 AM EST Farhana Potter PSYCHOLOGIST EXPERIMENTAL CHEMISTRY ORDERABLES Final Result Performing Organization Address [facility] Co de Phone Number [facility] [address] [place] [address] , [address] [place] [phone] * CT CHEST W CONTRAST (06/20/2015 1:19 [...] lower thoracic spine. us Onel Boudreaux MD [facility] CT ORDERABLES Final Result * TROPONIN-T (07/17/2014 3:14 AM EST) Only the most recent of2 resultswithin the time period is included. Troponin-T <0.01 <=0.02 ng/mL [facility] Comment: < 0.03 No detectable myocardial injury 0.03 - 0.10 Possible myocardial injury > 0.10 Indicative of myocardial injury Blood specimen (specimen) 07/17/2014 3:14 AM EST 07/17/2014 3:17 AM EST us Taco Pelayo MD CHEMISTRY ORDERABLES Final Resu lt Performing Organization Address [facility]/ZIP Co de Phone Number [facility] [address] [place] [address] * DIFFERENTIAL (07/17/2014 1:20 AM EST) Neut Percent 69.9 % [facility] Lymph Percent 18.8 % SE LAB Lake Percent 6.4 % SE LAB Eos Percent 4.1 % SE LAB Baso Percent 0.8 % SE LAB Neut# 3.8 1.8 - 7.7 x10(3)/mcL [facility] Lymph# 1.0 0.6 - 4.8 x10(3)/mcL SE LAB Lake# 0.4 0.0 - 1.3 x10(3)/mcL [facility] Eos# 0.2 0.0 - 0.5 x10(3)/mcL [facility] Baso# 0.0 0.0 - 0.2 x10(3)/mcL [facility] Blood specimen (specimen) 07/17/2014 1:20 AM EST 07/17/2014 1:52 AM EST us Taco Pelayo MD HEMATOLOGY ORDERABLES Final Res ult Performing Organization Address [facility] Co de Phone Number [facility] [address] [place] [address] Visit Diagnoses Diagnosis Start Date Acute asthmatic bronchitis, mild intermittent 07/17/2014 Gastrointestinal hemorrhage, unspecified gastrointestinal hemorrhage type 09/07/2018 Upper GI bleed Hemorrhage of gastrointestinal tract, unspecified 05/30/2022 Melena Blood in stool 05/30/2022 GI bleed Hemorrhage of gastrointestinal tract, unspecified 09/05/2018 GIOVANNY (acute kidney injury) Acute kidney failure, unspecified 09/05/2018 CAD (coronary artery disease) Coronary atherosclerosis of unspecified type of vessel, quinault or graft 09/05/2018 Diabetes mellitus type 2 [...] Coronary atherosclerosis of unspecified type of vessel, quinault or graft 05/30/2022 Chronic gastric ulcer without hemorrhage and without perforation 05/30/2022 Esophagitis Esophagitis, unspecified 05/30/2022 Upper GI bleed Hemorrhage of gastrointestinal tract, unspecified 05/30/2022 Melena Blood in stool 05/30/2022 Normocytic anemia Anemia, unspecified 05/30/2022 Hypothyroidism Unspecified hypothyroidism 05/30/2022 Care Teams Dairy Husbandman Relationship Specialty Start Date End Date Onel Boudreaux MD PCP - General Family Medicine 07/17/14
--- OUTSIDE RECORDS SUMMARY | 2025-01-22 10:19 | XMS_ITS | Clinical Summary ---
Author Organization Healthcare Address [address] [place] [address] Care Team Providers Care Grinding Room Supervisor Name Role Phone Onel Boudreaux MD Primary Care Provider [phone] Allergies No known active allergies Medications erythromycin [...] (2 of 2 - PCV) 11/22/2018 11/22/2017 [id number] Vaccine (1 - 20 24-25 season) 2024 [facility]-Influenza Vaccine (#1) 2025 [facility]-DTaP,Tdap,and Td Vaccine s (2 - [...] complete this topic Insurance MEDICARE Care Teams Grinding Room Supervisor Relationship Specialty Start Date End Date Onel Boudreaux MD PCP - General 07/02/22
--- OUTSIDE RECORDS SUMMARY | 2025-01-22 10:19 | XMS_ITS | Referral Summary ---
Author Organization [facility] Address [address] [place] [address] Phone Care Team Providers Care Billing Assistant Name Role Phone Dewayne Hong MD Primary [...] of Treatment Not on file Care Teams Billing Assistant Relationship Specialty Start Date End Date Dewayne Hong MD PCP - General 04/18/01
== END 2025-01-19 23:59 | disposition home or self-care (01) ==
LOC: LAB.DROPOF 01-22 10:08
PROVIDERS: PCP Family Medicine; Visit Provider Family Medicine
DX: E07.9 Disorder of thyroid, unspecified (principal); E11.9 Type 2 dia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s; I10 Essential (primary) hypertension; E78.5 Hyperlipidemia, unspecified
CPT/HCPCS: 80053; 84443; 85025

== ENCOUNTER 2025-01-30 00:50 | Emergency (ER) | payer MEDICARE, SELFPAY ==
[2025-01-30 00:52] VITALS: BP 161/73; PULSE 75; RESP 16; TEMP 36.6; O2SAT 95; BMI 32.8
--- NOTE | 2025-01-30 01:02 | XR_ITS ---
PROCEDURE INFORMATION: Exam: XR Left Hip Exam date and time: 01/30/2025 1:10 AM Age: 84 years old Clinical indication: Hip pain; Left hip; Additional info: Fall, left hip pain TECHNIQUE: Imaging protocol: Radiologic exam of the left hip. Views: 2 or 3 views hip with pelvis when performed. COMPARISON: CT ABDOMEN PELVIS WO CON 07/14/2022 6:36 AM FINDINGS: Bones/joints: Moderate osteoarthritis of the bilateral hips with attenuation joint spaces. Soft tissues: Unremarkable. IMPRESSION: No acute fracture.
--- NOTE | 2025-01-30 01:02 | XR_ITS ---
PROCEDURE INFORMATION: Exam: XR Left Femur Exam date and time: 01/30/2025 1:12 AM Age: 84 years old Clinical indication: Pain; Thigh; Left; Additional info: Fall, left hip pain TECHNIQUE: Imaging protocol: Radiologic exam of the left femur. Views: 2 views. COMPARISON: CR Hip L 01/30/2025 1:10 AM FINDINGS: Bones/joints: Osteoarthritis left hip with joint space attenuation. No acute fracture. Soft tissues: Atherosclerotic calcification. IMPRESSION: No acute findings.
--- OUTSIDE RECORDS SUMMARY | 2025-01-30 01:02 | XMS_ITS | Continuity of Care Document ---
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 [address] Loly Andujar MD Bazydlo, Kenneth C, MD Upper GI bleed (Primary Dx); Melena Discharge Disposition: Home or Self Care 2 Travel 9 Telephone [facility] [address] [place] [address] Gabriela Christie 9 11:42 PM EST - 9 1:49 PM EDT Hospital Encounter [place] [address] Shmuel Rapp MD Discharge Disposition: Home Health Care Svc 9 1:50 PM EST Anesthesia Event EDG ENDOSCOPY [facility] [address] [place] [id number] Peace Cheng MD 9 1:00 PM EST - 9 1:15 PM EST Surgery EDG ENDOSCOPY [facility] [place] [address] Asha Jackson MD ESOPHAGOGASTRODUODENOSCOPY (ANESTHESIA) 5 12:59 AM EST - 5 5:02 AM EST Emergency [facility] [address] [place] [address] Taco Pelayo MD Acute asthmatic bronchitis, mild [...] Sister Social History Smoking Status as of 01/30/2025 Tobacco Use Types Packs/Day Years Used Date [...] as he sees a liver specialist at [facility] in [place]. Presented to the ER with reports of black stool that began 5 days ago.Last bowel movement was actually 2 days ago. Denies diarrhea. Nohematemesis. No abdominal pain. No NSAID use. He had a recent colonoscopy and EGD in [place], within the past 2weeks. States there were [...] 09/07/2018 ESOPHAGOGASTRODUODENOSCOPY ; Surgeon: Asha Jackson MD;Location: [facility] ENDOSCOPY; Service: Endoscopy Family History: Family History [...] Date 05/31/22 0700 - 06/01/22 0659 Shift [id number] 24 Hour Total INTAKE I.V.(mL/kg/hr) 332.9 332.9 [...] the past by [facility]. [facility] specialist in [place]. He is nadolol. 3. Hx PUD, GERD. [...] 11:47 PM EST IP CONSULT TO MEDICAL CLINICAL NURSING MANAGER Routine 09/05/2018 11:47 PM EST Procedure Note [...] stent placement [facility] coffee ground em[facility] and darkstools. Given [...] Final Interpretation byphysician to follow. 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 Neut Percent 63.6 % 06/01/2022 9:06 AM EST [facility] Comment:Neutrophils equals s egs plus bands Imm Gran% 0.3 % 06/01/2022 9:06 AM EST [facility] Comment:Automated count of m etamyelocytes, myelocytes and promyelocytes. Lymph Percent 22.0 % 06/01/2022 9:06 AM EST [facility] [place] Percent 9.1 % 06/01/2022 9:06 AM EST [facility] Eos Percent 4.3 % 06/01/2022 9:06 AM EST [facility] Baso Percent 0.7 % 06/01/2022 9:06 AM EST [facility] Neut # 4.4 1.6 - 6.1 x10(3)/[facility] 06/01/2022 9:06 AM EST [facility] Comment:Neutrophils equals s egs plus bands IMMGRAN# 0.0 0.0 - 0.1 x10(3)/[facility] 06/01/2022 9:06 AM EST [facility] Comment:Automated count of m etamyelocytes, myelocytes and promyelocytes. An absolute IG <0.1 is reported as 0.0. Lymph # 1.5 1.2 - 3.9 x10(3)/[facility] 06/01/2022 9:06 AM EST [facility] [place] # 0.6 0.3 - 0.9 x10(3)/[facility] 06/01/2022 9:06 AM EST [facility] Eos# 0.3 0.0 - 0.5 x10(3)/[facility] 06/01/2022 9:06 AM EST [facility] Baso # 0.1 0.0 - 0.1 x10(3)/[facility] 06/01/2022 9:06 AM EST [facility] Blood VENOUS BLOOD / Unknown Venipuncture / Unknown 06/01/2022 7:29 AM EST 06/01/2022 8:49 AM EST Octavia Drew MD HEMATOLOGY ORDERABLES Fi nal Result Performing Organization Address [facility]/ZIP Co de Phone Number [facility] [address] [facility], [place] [address] * (ABNORMAL) BASIC METABOLIC PANEL (06/01/2022 7:29 AM EST) Only the most recent of11 resultswithin the time period is included. Sodium 138 136 - 145 mmol/L 06/01/2022 9:32 AM EST [facility] Potassium 4.2 3.5 - 5.0 mmol/L 06/01/2022 9:32 AM EST [facility] Chloride 100 98 - 107 mmol/L 06/01/2022 9:32 AM EST [facility] Total CO2 30(H) 22 - 29 mmol/L 06/01/2022 9:32 AM EST [facility] Anion Gap 8 7 - 16 mmol/L 06/01/2022 9:32 AM EST [facility] Calcium 8.4(L) 8.8 - 10.4 mg/dL 06/01/2022 9:32 AM EST [facility] Glucose Lvl 147(H) 82 - 100 mg/dL 06/01/2022 9:32 AM EST [facility] BUN 22 8 - 23 mg/dL 06/01/2022 9:32 AM EST [facility] Creatinine 1.36(H) 0.67 - 1.30 mg/dL 06/01/2022 9:32 AM EST [facility] eGFR (CKD-EPIcr 2020) 53(L) >=60 mL/min/1.7 3 m2 06/01/2022 9:32 AM EST [facility] Comment:Estimated GFR was ca lculated using the CKD-EPIcr (2020) equation refit without race. The equation is recommended by the National Kidney Foundation - [place] [employer] of Nephrology Task Force. Blood VENOUS BLOOD / Unknown Venipuncture / Unknown 06/01/2022 7:29 AM EST 06/01/2022 8:50 AM EST us Octavia Drew MD CHEMISTRY ORDERABLES Fin al Result Performing Organization Address City/[facility]/ZIP Co de Phone Number [facility] [address] [facility], [address] [place] [phone] [facility] [address] [place] [address] * ECG AND WAVEFORMS - TELEMETRY (06/01/2022 7:00 AM EST) Only the most recent of14 resultswithin the time period is included. ECG INTERPRET Sinus Bradycardia [facility] 06/01/2022 7:00 AM EST Narrative [facility] - 06/01/2022 9:18 AM EST /JPL/HICUITY/ROUTINE DE 0.18 QRS 0.08 RR 1.24 QT 0.48 QTc 0.43 See Clinical Report link for waveform capture us Unknown Provider POINT OF CARE CARDIOLOGY Final Result Performing Organization Address [facility] Co de Phone Number [facility] [address] [place] [address] * (ABNORMAL) GLUCOSE METER POC (06/01/2022 6:12 AM EST) Only the most recent of38 resultswithin the time period is included. [facility] Glucose Meter POC 153(H) 70 - 100 mg/dL 06/01/2022 6:14 AM EST [facility] Sample Type Capillary 06/01/2022 6:14 AM EST [facility] Patient Status Non-Critical Patient 06/01/2022 6:14 AM EST [facility] Blood BLOOD SPECIMEN / Unknown 06/01/2022 6:12 AM EST 06/01/2022 6:14 AM EST us Ronnie Garcia MD POINT OF CARE TEST ORDERABL ES Final Result Performing Organization Address City/[facility]/ZIP Co de Phone Number [facility] [address] [place] [address] * POTASSIUM REPEAT (05/30/2022 8:47 PM EST) Potassium 4.3 3.5 - 5.0 mmol/L 05/30/2022 9:20 PM EST [facility] [employer] [employer] Blood VENOUS BLOOD / Unknown Venipuncture / Unknown 05/30/2022 8:47 PM EST 05/30/2022 9:00 PM EST us Octavia Drew MD CHEMISTRY ORDERABLES Fin al Result Performing Organization Address [facility] Co de Phone Number [facility] [employer], [address] , [place] [address] * (ABNORMAL) HEMOGLOBIN AND HEMATOCRIT (05/30/2022 8:47 PM EST) Only the most recent of11 resultswithin the time period is included. Hgb 12.4(L) 13.7 - 17.5 g/dL 05/30/2022 9:03 PM EST [facility] [employer] [employer] Hct 38.4(L) 40.0 - 51.0 % 05/30/2022 9:03 PM EST [facility] [employer] [employer] Blood VENOUS BLOOD / Unknown Venipuncture / Unknown 05/30/2022 8:47 PM EST 05/30/2022 8:58 PM EST Ralph Kang MD HEMATOLOGY ORDERABLES Final Re sult Performing Organization Address [facility] Co de Phone Number [facility], [address] , [place] [address] * (ABNORMAL) RETICULOCYTE PANEL DIAGNOSTIC (05/30/2022 11:03 AM EST) Retic Cnt Auto 2.2 0.9 - 2.5 % 05/30/2022 11:32 AM EST [facility] [employer] [employer] Retic # 88.5 40.0 - 110.0 x10(3)/mcL 05/30/2022 11:32 AM EST [facility] [employer] [employer] Imm. Retic Fraction % 19.3(H) 3.1 - 17.6 % 05/30/2022 11:32 AM EST [facility] [employer] [employer] Retic Hgb 34.0 28.0 - 38.0 pg 05/30/2022 11:32 AM EST [facility] Blood VENOUS BLOOD / Unknown Venipuncture / Unknown 05/30/2022 11:03 AM EST 05/30/2022 11:20 AM EST Narrative [facility] - 05/30/2022 11:32 AM EST Reticulocyte hemoglobin [...] 142:506-512. (4)Goodnough, L., et al. 2010. Blood 116:[phone]. us Octavia Drew MD HEMATOLOGY ORDERABLES [facility] Result [facility] [address] [facility], [place] [address] * TSH REFLEX (05/30/2022 11:03 AM EST) Only the most recent of2 resultswithin the time period is included. TSH Reflex 1.120 0.270 - 4.200 mcIU/mL 05/30/2022 12:02 PM EST [facility] Blood VENOUS BLOOD / Unknown Venipuncture / Unknown 05/30/2022 11:03 AM EST 05/30/2022 11:21 AM EST Narrative [facility] - 05/30/2022 12:02 PM EST Ingestion of mariela doses of biotin (>5 mg/day) taken within 8 hours of drawing blood sample can interfere with this immunoassay test. Octavia Drew MD CHEMISTRY ORDERABLES Fin al Result Performing Organization Address City/[facility] Co de Phone Number [facility] [address] [place] [address] , [facility] [place] [address] * (ABNORMAL) HEMOGLOBIN A1C (05/30/2022 11:03 AM EST) Only the most recent of2 resultswithin the time period is included. Hgb A1C 8.5(H) 4.2 - 5.6 % 05/30/2022 11:58 AM EST [facility] Est. Avg Glucose 197 mg/dL 05/30/2022 11:58 AM EST [facility] Blood VENOUS BLOOD / Unknown Venipuncture / Unknown 05/30/2022 11:03 AM EST 05/30/2022 11:20 AM EST Narrative [facility] - 05/30/2022 11:58 AM EST REFERENCE RANGE: Normal: 4.0-5.6% Pre-diabetes: 5.7-6.4% Provisional diagnosis of diabetes: >6.4% Hgb F>10% and anything which shortens red cell survival, such as hemolytic anemia, or unstable hemoglobin variants such as HbSS, HbSC, or HbCC, will lower the HbA1c value associated with a given level of glycemic control. Octavia Drew MD CHEMISTRY ORDERABLES Fin al Result Performing Organization Address [facility] Co de Phone Number [facility] [address] [place] [address] , [facility] [place] [address] * EXTRA PRETTY URINE CX (05/30/2022 4:05 AM EST) Urine URINE SPECIMEN COLLECTION, CLEAN CATCH / Unknown 05/30/2022 4:05 AM EST 05/30/2022 4:10 AM EST Loly Andujar MD MICROBIOLOGY - GENERAL MOOSE CUI Final Result Performing Organization Address City/[facility]/ZIP Co de Phone Number [facility] [address] [place] [phone] * URINALYSIS (05/30/2022 4:05 AM EST) UA Color Light Yellow 05/30/2022 4:13 AM EST [facility] UA Appear Clear Clear 05/30/2022 4:13 AM EST [facility] UA Glucose Negative Negative mg/dL 05/30/2022 4:13 AM EST [facility] UA Ketones Negative Negative mg/dL 05/30/2022 4:13 AM EST [facility] UA Blood Negative Negative 05/30/2022 4:13 AM EST [facility] UA pH 6.0 5.0 - 8.0 pH 05/30/2022 4:13 AM EST [facility] UA Protein Negative Negative mg/dL 05/30/2022 4:13 AM EST [facility] UA Urobilinogen Normal <=1 mg/dL 4:13 AM EST [facility] UA Bili Negative Negative 05/30/2022 4:13 AM EST [facility] UA Nitrite Negative Negative 05/30/2022 4:13 AM EST [facility] UA Leuk Est Negative Negative 05/30/2022 4:13 AM EST [facility] UA Spec Grav 1.018 1.001 - 1.035 no units 05/30/2022 4:13 AM EST [facility] Comment:Reference range niharika d for random specimens only. Urine URINE SPECIMEN COLLECTION, CLEAN CATCH / Unknown 05/30/2022 4:05 AM EST 05/30/2022 4:10 AM EST us Loly Andujar MD URINE ORDERABLES Final Resu lt [facility] [address] [facility] [address] , [place] [address] * BB HISTORY CHECK (05/30/2022 3:56 AM EST) Only the most recent of2 resultswithin the time period is included. BB HISTORY CHECK (1) Previous History OK 05/30/2022 4:22 AM EST [facility] Blood VENOUS BLOOD / Unknown Venipuncture / Unknown 05/30/2022 3:56 AM EST 05/30/2022 4:05 AM EST Result [facility] Loly Andujar MD BLOOD BANK ORDERABLES Final Result Performing Organization Address City/[facility] [place] [address] * ABORH (05/30/2022 3:56 AM EST) Only the most recent of2 resultswithin the time period is included. ABORH Int A POS 05/30/2022 5:0 8 AM EST [facility] BLOOD [facility] Blood VENOUS BLOOD / Unknown Venipuncture / Unknown 05/30/2022 3:56 AM EST 05/30/2022 4:05 AM EST Loly Andujar MD BLOOD BANK ORDERABLES Final Result Performing Organization Address [facility] Co de Phone Number [place] [phone] * (ABNORMAL) PT / INR (05/30/2022 3:56 AM EST) Only the most recent of10 resultswithin the time period is included. PT 14.4(H) 10.0 - 13.1 second(s) 05/30/2022 4:15 AM EST [facility] [employer] INR 1.22(H) 0.86 - 1.12 (ratio) 05/30/2022 4:15 AM EST [facility] Comment: Level of Therapy Indications Target INR Range Standard Dose Treatment and prophylaxis of venous 2.0 - 3.0 thrombosis, pulmonary embolism High Dose High risk patients with mechanical 2.5 - 3.5 heart valves Blood VENOUS BLOOD / Unknown Venipuncture / Unknown 05/30/2022 3:56 AM EST 05/30/2022 4:05 AM EST Loly Andujar MD HEMATOLOGY ORDERABLES Final Result [facility] [employer] [address], [place] [address] * ANTIBODY SCREEN IGG (05/30/2022 3:56 AM EST) Only the most recent of2 resultswithin the time period is included. Pathologist [facility] ABSC IgG Int Negative 05/30/2022 5:19 AM EST [facility] Blood VENOUS BLOOD / Unknown Venipuncture / Unknown 05/30/2022 3:56 AM EST 05/30/2022 4:05 AM EST Loly Andujar MD BLOOD BANK ORDERABLES Final Result Performing Organization Address [facility] Co de Phone Number [facility] [address] [place] [address] * (ABNORMAL) CBC (05/29/2022 9:57 PM EST) Only the most recent of3 resultswithin the time period is included. [facility] WBC 8.3 3.7 - 10.3 x10(3)/mcL 05/29/2022 10:02 PM EST [facility] RBC 4.38(L) 4.60 - 6.10 x10(6)/mcL 05/29/2022 10:02 PM EST [facility] Hgb 12.6(L) 13.7 - 17.5 g/dL 05/29/2022 10:02 PM EST [facility] Hct 39.8(L) 40.0 - 51.0 % 05/29/2022 10:02 PM EST [facility] MCV 90.9 80.0 - 100.0 fL 05/29/2022 10:02 PM EST [facility] MCH 28.8 26.0 - 34.0 pg 05/29/2022 10:02 PM EST [facility] MCHC 31.7 30.7 - 35.5 g/dL 05/29/2022 10:02 PM EST [facility] RDW 13.4 <=14.9 % 05/29/2022 10:02 PM EST [facility] Platelet 228 155 - 369 x10(3)/mcL 05/29/2022 10:02 PM EST [facility] MPV 11.1 8.8 - 12.5 fL 05/29/2022 10:02 PM [facility] Blood VENOUS BLOOD / Unknown Venipuncture / Unknown 05/29/2022 9:57 PM EST 05/29/2022 9:58 PM EST us Loly Andujar MD HEMATOLOGY ORDERABLES Final Result [facility] [address] [place] [address] * (ABNORMAL) COMPREHENSIVE METABOLIC PANEL (05/29/2022 9:57 PM EST) Sodium 137 136 - 145 mmol/L 05/29/2022 10:17 PM [facility] Potassium 4.2 3.5 - 5.0 mmol/L 05/29/2022 10:17 PM [facility] Chloride 95(L) 98 - 107 mmol/L 05/29/2022 10:17 PM [facility] Total CO2 30(H) 22 - 29 mmol/L 05/29/2022 10:17 PM [facility] Anion Gap 12 7 - 16 mmol/L 05/29/2022 10:17 PM [facility] Calcium 9.8 8.8 - 10.4 mg/dL 05/29/2022 10:17 PM [facility] Glucose Lvl 173(H) 82 - 100 mg/dL 05/29/2022 10:17 PM [facility] BUN 19 8 - 23 mg/dL 05/29/2022 10:17 PM [facility] Creatinine 1.22 0.67 - 1.30 mg/dL 05/29/2022 10:17 PM [facility] Albumin 4.2 3.2 - 4.6 gm/dL 05/29/2022 10:17 PM [facility] Total Protein 7.7 6.4 - 8.3 gm/dL 05/29/2022 10:17 PM [facility] Bili Total 0.7 0.1 - 1.4 mg/dL 05/29/2022 10:17 PM EST [facility] ALT 28 <=41 U/L 05/29/2022 10:17 PM EST [facility] AST 34 <=40 U/L 05/29/2022 10:17 PM EST [facility] Alk Phos 63 40 - 129 U/L 05/29/2022 10:17 PM EST [facility] eGFR (CKD-EPIcr 2020) 60 >=60 mL/min/1.7 3 m2 05/29/2022 10:17 PM EST [facility] Comment:Estimated GFR was ca lculated using the CKD-EPIcr (2020) equation refit without race. The equation is recommended by the National Kidney Foundation - [place] Society of Nephrology Task Force. Blood VENOUS BLOOD / Unknown Venipuncture / Unknown 05/29/2022 9:57 PM EST 05/29/2022 9:59 PM EST us Loly Andujar MD CHEMISTRY [place] [address] * XR CHEST PA AND LATERAL (09/13/2018 [...] Final Result [facility] [address] [facility] [address] , [place] [address] * (ABNORMAL) HEPATIC FUNCTION PANEL (09/10/2018 7:41 [...] ORDERABLES Final Res ult Performing Organization Address [facility] Co de Phone Number [facility], [address] , [place] [address] * [place] MODIFIED BARIUM SWALLOW (09/09/2018 3:53 PM EST) Narrative PACS - 09/09/2018 3:54 PM EST Modified Barium Swallow was performed in the Radiology department by Speech Pathology. No Radiologist in attendance. No charge from [facility]. Refer to Speech Pathology for further information. us Damian Valenzuela MD IMG FLUOROSCOPY ORDERA BLES Final Result Performing Organization Address [facility] Co de Phone Number PACS [...] ORDERABLES Final Resul t Performing Organization Address [facility] Co de Phone Number [facility] [employer], [address] , [place] [address] * (ABNORMAL) IONIZED CALCIUM - INPATIENT (09/09/2018 3:09 AM EST) Calcium Ionized 1.05(L) 1.12 - 1.32 mmol/L 09/09/2018 3:18 AM EST [facility] [employer] [employer] Blood VENOUS BLOOD / Unknown Butterfly / Unknown 09/09/2018 3:09 AM EST 09/09/2018 3:15 AM EST Mukesh Bryson MD CHEMISTRY ORDERABLES Final R esult [facility] [address] [facility] [address] , [place] [address] * XR CHEST AP PORTABLE (09/08/2018 10:25 [...] contamination. 09/09/2018 6:42 AM EST [facility] Urine URINE SPECIMEN COLLECTION, CLEAN CATCH / Unknown 09/07/2018 7:28 PM EST 09/07/2018 7:33 PM EST Shobha Marks APRN MICROBIOLOGY - GENERAL ORDERABL ES Final Result Performing Organization Address [facility] Co de Phone Number [facility] [address] [facility], [place] [address] * INTRAOP AIRWAY PLACEMENT (09/07/2018 2:00 PM EST) Narrative [facility] - 09/07/2018 2:00 PM EST Tiesha So CRNA 09/07/2018 2:00 PM Intraop Airway Placement: Airway type: Nasal cannula salter Procedure Note Tiesha So CRNA - 09/07/2018 2:00 PM EST Intraop Airway Placement: Airway type: Nasal cannula salter Peace Cheng MD DE ANESTHESIA Final Result Performing Organization Address [facility] Co de Phone Number [facility] [address] [place] [address] * GMED EGD (09/07/2018 1:00 PM EST) 09/07/2018 1:00 PM EST Impressions [facility] - 09/07/2018 2:10 PM EST [...] ORDERAB LES Final Result Performing Organization Address [facility]/ZIP Co de Phone Number [facility] [address] [place] [address] * (ABNORMAL) REPEAT LACTIC ACID (09/07/2018 10:47 AM EST) Only the most recent of4 resultswithin the time period is included. Lactic Acid 3.9(H) 0.5 - 1.9 mmol/L 09/07/2018 11:03 AM EST [facility] Blood VENOUS BLOOD / Unknown Butterfly / Unknown 09/07/2018 10:47 AM EST 09/07/2018 10:51 AM EST Damian Valenzuela MD CHEMISTRY ORDERABLES F inal Result Performing Organization Address [facility]/ZIP Co de Phone Number [facility] [address] [place] [address] * (ABNORMAL) LOWER RESPIRATORY CULTURE (STAIN INCLUDED) [...] not be used alone. us Shobha Marks DIRECTOR OF INCOME TAX MICROBIOLOGY - GENERAL ORDERABL ES Final Result [facility], [address] , [place] [address] * (ABNORMAL) LACTIC ACID (09/07/2018 8:34 AM EST) Only the most recent of4 resultswithin the time period is included. Lactic Acid 4.2(H) 0.5 - 1.9 mmol/L 09/07/2018 9:02 AM EST [facility] Blood VENOUS BLOOD / Unknown Venipuncture / Unknown 09/07/2018 8:34 AM EST 09/07/2018 8:45 AM EST Damian Valenzuela MD CHEMISTRY ORDERABLES F inal Result [facility] [address] [place] [address] * (ABNORMAL) LIPASE LEVEL (09/07/2018 5:54 AM EST) Lipase Lvl 8(L) 13 - 60 IU/L 09/07/2018 6:30 AM EST [facility] Blood VENOUS BLOOD / Unknown Venipuncture / Unknown 09/07/2018 5:54 AM EST 09/07/2018 6:00 AM EST Silvio Jaramillo MD CHEMISTRY ORDERABLES Final R esult Performing Organization Address [facility] Co de Phone Number [facility] [address] [facility] , [place] [phone] * (ABNORMAL) AMYLASE LEVEL (09/07/2018 5:54 AM EST) Amylase Lvl 10(L) 28 - 100 IU/L 09/07/2018 6:30 AM EST [facility] Blood VENOUS BLOOD / Unknown Venipuncture / Unknown 09/07/2018 5:54 AM EST 09/07/2018 6:00 AM EST Silvio Jaramillo MD CHEMISTRY ORDERABLES Final R esult Performing Organization Address [facility] Co de Phone Number [facility] [address] [facility] , [place] [phone] * AMMONIA LEVEL (09/07/2018 5:54 AM EST) Only the most recent of2 resultswithin the time period is included. Ammonia 51 16 - 60 mcmol/L 09/07/2018 6:24 AM EST [facility] Blood VENOUS BLOOD / Unknown Venipuncture / Unknown 09/07/2018 5:54 AM EST 09/07/2018 6:00 AM EST Silvio Jaramillo MD CHEMISTRY ORDERABLES Final R esult Performing Organization Address [facility] de Phone Number [facility] [address] [place] [address] , [address] [place] [phone] * ACETAMINOPHEN LEVEL (09/07/2018 5:54 AM EST) Acetaminophen Lvl <15.0 mcg/mL 019 6:33 AM EST [facility] Blood VENOUS BLOOD / Unknown Venipuncture / Unknown 09/07/2018 5:54 AM EST 09/07/2018 6:00 AM EST Narrative [facility] - 09/07/2018 6:33 AM EST Therapeutic: 10-30 mcg/ml Supratherapeutic: > 35 mcg/ml Toxic: > 150 mcg/ml (4h post ingestion) > 75 mcg/ml (8h post ingestion) > 40 mcg/ml (12h post ingestion) Silvio Jaramillo MD CHEMISTRY ORDERABLES Final R [facility] Performing Organization Address [facility] Co de Phone Number [facility] [address] [place] [address] , [place] [address] * US ABDOMEN PELVIS VASCULAR STUDY LIMITED [...] evaluation of the region of interest with commissary representative images sent to PACS along with backend java developer notes. FINDINGS: Grayscale, color Doppler, and spectral [...] sonographic evaluation of the region ofinterest with commissary representative images sent to PACS along with backend java developer notes. FINDINGS: Grayscale, color Doppler, and spectral [...] - - . Damian Lorna Valenzuela MD [facility] US ORDERABLES Baylee l Result * HEMOCHROMATOSIS MUTATION DETECTION, HEREDITARY -REF LAB (09/06/2018 3:11 PM EST) C282Y Negative 09/11/2018 2:27 PM EDT [employer] [employer] H63D Negative 09/11/2018 2:27 PM EDT [employer] [employer] S65C Negative 09/11/2018 2:27 PM EDT [facility] [employer] Hemochromatosis Mutation Inter See Note 09/11/2018 2:27 PM EDT [employer] [employer] Comment: Indication for testing: Carrier [...] variations. Test developed and characteristics determined by [facility]. See Compliance Statement C: [email or web address]/ Performed by [facility], [address] [place] [address] [email or web address], Guillermo Casey MD, Lab. Director HFE PCR specimen Whole Blood 019 2:27 PM EDT [facility] / Unknown 09/06/2018 3:11 PM EST 09/06/2018 3:11 PM EST Ursula Harris APRN IMMUNOLOGY ORDERABLES Final Re sult [facility] [address] [place] [address] * HSV TYPE 1,2, IGM-REF LAB (09/06/2018 3:11 PM EST) Pathologist [facility] HSV 1/2 IgM 0.29 <=0.89 IV 09/08/2018 12:32 AM EST [facility] Comment: INTERPRETIVE INFORMATION: Herpes Simplex Virus Type [...] more than 12 months post-infection. Performed by [facility], [address] [place] [id number] [email or web address], Guillermo Casey MD, Lab. Director Blood Butterfly / Unknown 09/06/2018 3:11 PM EST 09/06/2018 3:11 PM EST Ursula Harris APRN IMMUNOLOGY ORDERABLES Final Re sult [facility] [address] [place] [address] * (ABNORMAL) CMV IGG/IGM (09/06/2018 9:19 AM EST) Pathologist [facility] CMV IgG Positive(A) Negative, Equ[employer] 09/07/2018 10:52 AM EST [facility] [employer] CMV IgM Negative Negative, Equivocal 09/07/2018 10:52 AM EST [facility] [employer] Blood Butterfly / Unknown 09/06/2018 9:19 AM EST 09/06/2018 9:25 AM EST Narrative [facility] [employer] - 09/07/2018 10:52 AM EST A positive [...] Harris APRN IMMUNOLOGY ORDERABLES Final Re sult [facility] [address] [facility] , [place] [address] * EBV VIRAL CAPSID ANTIBODIES (09/06/2018 9:19 AM EST) EB VCA IgM <10.0 unit/mL 09/06/2018 12:24 PM EST [facility] Comment: Sample results should be interpreted as [...] IgG 623.0 unit/mL 09/06/2018 12:24 PM EST [facility] Comment: Sample results should be interpreted as [...] Address [facility] de Phone Number [facility] [email or web address] [address], [place] [address] * ACUTE HEPATITIS PANEL (09/06/2018 9:19 AM EST) Only the most recent of2 resultswithin the time period is included. Hep Bs Ag Non-Reacti ve Non-Reacti ve 09/06/2018 11:15 AM EST [facility] Hep B Core IgM Non-Reacti ve Non-Reacti ve 09/06/2018 11:15 AM EST [facility] [employer], [employer] Hep A IgM Non-Reacti ve Non-Reacti ve 09/06/2018 11:15 AM EST [facility] [employer], [facility] Hep C Ab Non-Reacti ve Non-Reacti ve 09/06/2018 11:15 AM EST [facility] [employer] Blood Butterfly / Unknown 09/06/2018 9:19 AM EST 09/06/2018 9:25 AM EST Mukesh Bryson MD CHEMISTRY ORDERABLES Final R esult Performing Organization Address [facility] Phone Number [facility], [address] , [place] [address] * BLOOD CULTURE (NO STAIN) (09/06/2018 9:19 AM EST) Only the most recent of2 resultswithin the time period is included. Culture Result No Growth at 120 hours. BLOOD CULTURE (NO STAIN) 09/11/2018 11:00 AM EDT [facility] [employer], [employer] Blood VENOUS BLOOD / Unknown [facility] / Unknown 09/06/2018 9:19 AM EST 09/06/2018 9:25 AM EST Mukesh Bryson MD MICROBIOLOGY - GENERAL ORDER CRYSTAL Final Result Performing Organization Address [facility]/ZIP Co de Phone Number [facility] [address] , [place] [address] * (ABNORMAL) FERRITIN (09/06/2018 8:32 AM EST) Ferritin 8,298(H) 30 - 400 ng/mL 09/06/2018 9:37 AM EST [facility] Blood VENOUS BLOOD / Unknown Venipuncture / Unknown 09/06/2018 8:32 AM EST 09/06/2018 8:40 AM EST Narrative [facility] - 09/06/2018 9:37 AM EST Ingestion of mariela doses of biotin (>5 mg/day) taken within 8 hours of drawing blood sample can interfere with this immunoassay test. us Mukesh Bryson MD CHEMISTRY ORDERABLES Final R esult Performing Organization Address [facility] Co de Phone Number [facility] [address] [facility] , [place] [address] * US RIGHT UPPER QUADRANT (09/06/2018 2:22 [...] of2 resultswithin the time period is included. eg-rBzrleqbe-A 23(H) <22 ng/L 09/06/2018 2:22 AM EST [facility] Comment: See the website below for rule out [place] care pathway, conditions other than AMI that can cause elevated hs cTnT, and comparison of values from the 4th and 5th generation James tests. [email or web address] Blood VENOUS BLOOD / Unknown Venipuncture / Unknown 09/06/2018 1:42 AM EST 09/06/2018 1:49 AM EST Narrative [facility] - 09/06/2018 2:22 AM EST Ingestion of mariela doses of biotin (>5 mg/day) taken within 8 hours of drawing blood sample can interfere with this immunoassay test. Farhana Caleb WERNER CHEMISTRY ORDERABLES Final Result [facility] [address] [facility] , [place] [address] * CT ABDOMEN PELVIS WO [...] Incidental findings as described Farhana Potter APRN [facility] CT ORDERABLES Final Res ult * (ABNORMAL) BLOOD GAS ARTERIAL (09/06/2018 12:19 AM EST) pH 7.44 7.35 - 7.45 pH 09/06/2018 12:24 AM EST [facility] pCO2 34(L) 35 - 45 mmHg 09/06/2018 12:24 AM EST [facility], [employer] pO2 73(L) 80 - 100 mmHg 09/06/2018 12:24 AM EST [facility] HCO3 22.8 22.0 - 26.0 mmol/L 09/06/2018 12:24 AM EST [facility] TCO2 22 22 - 29 mmol/L 09/06/2018 12:24 AM EST [facility], [facility] Base Excess -0.5 -2.0 - 3.0 mmol/L 09/06/2018 12:24 AM EST [facility] O2 Sat 95.5 95.0 - 98.0 % 09/06/2018 12:24 AM EST [facility] [employer] O2 ra 09/06/2018 12:24 AM EST [facility] Blood Venipuncture / Unknown 09/06/2018 12:19 AM EST 09/06/2018 12:19 AM EST Farhana Potter APRN CHEMISTRY ORDERABLES Final Result Performing Organization Address [facility] Co de Phone Number [address] , [place] [address] * PARTIAL THROMBOPLASTIN TIME (09/06/2018 12:09 AM EST) PTT 26.5 26.0 - 36.4 second(s) 09/06/2018 1:22 AM EST [facility] Comment: Therapeutic range for unfractionated heparin: 53.0 [...] HEMATOLOGY ORDERABLES Final Result Performing Organization Address City/[facility]/ZIP Co de Phone Number [address] , [place] [address] * PHOSPHORUS LEVEL (09/06/2018 12:09 AM EST) Phosphorus 3.1 2.5 - 4.5 mg/dL 09/06/2018 12:43 AM EST [facility] Blood ARTERIAL BLOOD / Unknown Arterial / Unknown 09/06/2018 12:09 AM EST 09/06/2018 12:16 AM EST Farhana Potter DIRECTOR OF INCOME TAX CHEMISTRY ORDERABLES Final Result Performing Organization Address [facility] Co de Phone Number [facility] [employer] [address] [place] [address] , [place] [address] * NT PROBNP (09/06/2018 12:09 AM EST) Only the most recent of2 resultswithin the time period is included. NT Pro-BNP 126 <=718 pg/mL 09/06/2018 12:54 AM EST [facility] Blood ARTERIAL BLOOD / Unknown Arterial / Unknown 09/06/2018 12:09 AM EST 09/06/2018 12:16 AM EST Narrative [facility] - 09/06/2018 12:54 AM EST An NT pro-BNP level less than 300 pg/mL in any patient, regardless of age, effectively rules out acute CHF with a 99% negative predictive value. Farhana Hearnely DIRECTOR OF INCOME TAX CHEMISTRY ORDERABLES Final Result Performing Organization Address [facility] de Phone Number [facility] [address] [facility] , [place] [address] * MAGNESIUM LEVEL (09/06/2018 12:09 AM EST) Magnesium 1.9 1.6 - 2.4 mg/dL 09/06/2018 12:43 AM EST [facility] Blood ARTERIAL BLOOD / Unknown Arterial / Unknown 09/06/2018 12:09 AM EST 09/06/2018 12:16 AM EST Farhana Potter DIRECTOR OF INCOME TAX CHEMISTRY ORDERABLES Final Result Performing Organization Address City/[facility] Co de Phone Number [facility] [address] [place] [address] , [address] [place] [phone] * CT CHEST W CONTRAST (06/20/2015 1:19 [...] lower thoracic spine. us Onel Boudreaux MD [facility] CT ORDERABLES Final Result * TROPONIN-T (07/17/2014 3:14 AM EST) Only the most recent of2 resultswithin the time period is included. Troponin-T <0.01 <=0.02 ng/mL [facility] Comment: < 0.03 No detectable myocardial injury 0.03 - 0.10 Possible myocardial injury > 0.10 Indicative of myocardial injury Blood specimen (specimen) 07/17/2014 3:14 AM EST 07/17/2014 3:17 AM EST us Taco Pelayo MD CHEMISTRY ORDERABLES Final Resu lt Performing Organization Address [facility]/ZIP Co de Phone Number [facility] [address] [place] [address] * DIFFERENTIAL (07/17/2014 1:20 AM EST) Neut Percent 69.9 % [facility] Lymph Percent 18.8 % [facility] [place] Percent 6.4 % [facility] Eos Percent 4.1 % [facility] Baso Percent 0.8 % [facility] Neut# 3.8 1.8 - 7.7 x10(3)/mcL [facility] Lymph# 1.0 0.6 - 4.8 x10(3)/mcL [facility] [place]# 0.4 0.0 - 1.3 x10(3)/mcL [facility] Eos# 0.2 0.0 - 0.5 x10(3)/mcL [facility] Baso# 0.0 0.0 - 0.2 x10(3)/mcL [facility] Blood specimen (specimen) 07/17/2014 1:20 AM EST 07/17/2014 1:52 AM EST us Taco Pelayo MD HEMATOLOGY ORDERABLES Final Res ult Performing Organization Address [facility] Co de Phone Number [facility] [address] [place] [address] Visit Diagnoses Diagnosis Start Date Acute asthmatic bronchitis, mild intermittent 07/17/2014 Gastrointestinal hemorrhage, unspecified gastrointestinal hemorrhage type 09/07/2018 Upper GI bleed Hemorrhage of gastrointestinal tract, unspecified 05/30/2022 Melena Blood in stool 05/30/2022 GI bleed Hemorrhage of gastrointestinal tract, unspecified 09/05/2018 GIOVANNY (acute kidney injury) Acute kidney failure, unspecified 09/05/2018 CAD (coronary artery disease) Coronary atherosclerosis of unspecified type of vessel, [place] or graft 09/05/2018 Diabetes mellitus type 2 [...] Coronary atherosclerosis of unspecified type of vessel, [place] or graft 05/30/2022 Chronic gastric ulcer without hemorrhage and without perforation 05/30/2022 Esophagitis Esophagitis, unspecified 05/30/2022 Upper GI bleed Hemorrhage of gastrointestinal tract, unspecified 05/30/2022 Melena Blood in stool 05/30/2022 Normocytic anemia Anemia, unspecified 05/30/2022 Hypothyroidism Unspecified hypothyroidism 05/30/2022 Care Teams Mattress Weaver Relationship Specialty Start Date End Date Onel Boudreaux MD PCP - General Family Medicine 07/17/14
--- OUTSIDE RECORDS SUMMARY | 2025-01-30 01:02 | XMS_ITS | Referral Summary ---
Author Organization [facility] Address [address] [place] [address] Phone Care Team Providers Care Laser Beam Cutter Name Role Phone Dewayne Hong MD Primary [...] of Treatment Not on file Care Teams Laser Beam Cutter Relationship Specialty Start Date End Date Dewayne Hong MD PCP - General 04/18/01
--- NOTE | 2025-01-30 01:03 | [facility].EDGENADL ---
Discharge Plan Disposition Patient Disposition: Home, Self-Care Prescriptions Prescriptions: New lidocaine 5 % adhesive patch,medicated 1 patch topical DAILY PRN (Reason: pain) Qty: 30 0RF Rx Instructions: leave on most painful area for up to 12 hrs No Action lisinopril 5 mg tablet 5 mg PO DAILY acyclovir 400 mg tablet 400 mg PO DAILY metformin [Fortamet] 1,000 mg tablet extended release 24hr 1,000 mg PO DAILY Qty: 90 3RF (DME) Accu-Chek Jess Plus test strp Strip See Rx Instructions .ROUTE .COMPLEX Qty: 300 0RF Dose Instruction: USE DIRECTED Rx Instructions: USE DIRECTED levothyroxine [Synthroid] 25 mcg tablet 25 mcg PO DAILY Qty: 90 3RF atorvastatin 40 mg tablet 40 mg PO DAILY Qty: 90 3RF nadolol 20 mg tablet 20 mg PO DAILY Referrals Follow up/Referrals: Onel Boudreaux MD [Primary Care Provider, [facility]] - See instructions Activity Restrictions/Add. Instructions Additional Instructions/Restrictions: Please follow-up with your primary care provider. Please return to the emergency department if you develop any new or worsening symptoms or become concerned for your health. Clinical Impressions Clinical Impression: Contusion of hip and thigh Qualifiers: Encounter type: initial encounter Laterality: left Qualified Code(s): S70.02XA - Contusion of left hip, initial encounter Print Language Print Language: Maltese Discharge ED Provider: Nathaniel Rodriguez General Adult HPI General Chief complaint: Extremity Injury, Lower Stated complaint: Fall off Ladder 01/26, pain Time Seen by Provider: 01/30/25 00:50 Mode of Arrival: Wheelchair Source of Information: Patient Description of Symptoms (Recalled from ER Triage Doc. by RN): Wednesday evening, fell about 2 feet from ladder, now left hip pain History of Present Illness HPI narrative: 88-year-old male with history of hypertension presents for persistent left hip pain. He fell from the second step of the ladder netting on his left hip on Wednesday, 4 days ago. He has been on a walk since that time, but he reports persistent pain and hematoma formation. He denies any numbness or tingling. Related Data Home Medications ?Medication ?Instructions ?Recorded ?Confirmed lisinopril 5 mg tablet 5 mg PO DAILY 09/29/24 01/30/25 acyclovir 400 mg tablet 400 mg PO DAILY 11/30/24 01/30/25 nadolol 20 mg tablet 20 mg PO DAILY 01/30/25 01/30/25 Previous Rx's ?Medication ?Instructions ?Recorded levothyroxine 25 mcg tablet 25 mcg PO DAILY thyroid #90 tabs 10/05/24 (Synthroid) metformin 1,000 mg tablet,extended 1,000 mg PO DAILY #90 tabs 11/30/24 release 24hr (osmotic) (Fortamet) atorvastatin 40 mg tablet 40 mg PO DAILY High Blood Pressure 12/18/24 #90 tabs blood sugar diagnostic (Accu-Chek #300 strips 01/19/25 Jess Plus test strips) lidocaine 5 % topical patch 1 patch topical DAILY PRN pain #30 01/30/25 ea Allergies Allergy/AdvReac Type Severity Reaction Status Date / Time sitagliptin (From Jul) Allergy yeast Verified 01/19/25 10:16 infections [facility] Disclaimer: The information contained in this section may have been updated after the patient was seen, as this information can be updated by other users. Medical History Fatty tumor History of prostate cancer Hyperlipidemia Diabetes Thyroid disease Hypertension Surgical History History of cataract surgery History of colonoscopy History of appendectomy Family History Sister Cancer Brother Heart disease Social History Smoking Status: Unknown if ever smoked alcohol intake: former substance use type: denies use current occupational status: retired Travel in the last 8 weeks?: None Have you lived/traveled outside [place] in past 30 days?: No Contact w/someone who lives/traveled outside [place] past 30 days?: No Exposure to someone with infectious disease in past 14 days?: No Do you have a fever (greater than 100.4 F or 38 C)?: No Have you tested positive for COVID-19?: No Exposed to someone with COVID-19 in past 14 days?: No Do you have a sore throat?: No Do you have a cough?: No Do you have any weakness?: No Do you have any diarrhea?: No Are you experiencing any unusual bleeding?: No Do you have any muscle aches/pain?: Yes Do you have any abdominal pain?: No Are you experiencing loss of taste or smell?: No Other Medical History Have you received the Flu Vaccine for this season: No Have you received the Pneumonia Vaccine: Yes ROS Obtained: Yes All systems reviewed & no additional complaints except as documented Physical Exam General General appearance: alert and in no apparent distress Head Head exam: atraumatic and normocephalic Eye Eye exam: Present normal appearance, PERRL and EOMI ENT ENT exam: Present normal oropharynx and normal external ear exam Neck Neck exam: Present normal inspection and full ROM Chest Chest inspection: Present normal inspection and symmetric chest wall rise; Absent tenderness Respiratory Respiratory exam: Present normal lung sounds bilaterally; Absent respiratory distress Cardiovascular Cardiovascular exam: Present regular rate and normal rhythm Abdominal Exam Abdominal exam: Present soft; Absent distention, tenderness or guarding Extremities Exam Extremities exam: Present other (Tenderness to palpation of the left hip with associated hematoma.); Absent edema or joint swelling Back Exam Back exam: Present normal inspection; Absent tenderness Neurological Exam Neurological exam: Present alert and oriented X3; Absent motor sensory deficit Psychiatric Psychiatric exam: Present normal affect and normal mood Skin Skin exam: Present warm, dry and normal color Lymphatic Lymphatic Findings: no adenopathy Medical Decision Making Medical Records Medical records reviewed: Yes I reviewed the patient's medical records. Screening: Per USPSTF and CDC recommendations, given the prevalence of disease in our region, it is our hospital?s policy to screen for HIV and viral Hepatitis for all patients aged 18 and over and those with ongoing risk factors. Dom Inquiry Pt receiving controlled substance: No Dom was queried for this patient: No Vital Signs: 01/30/25 00:52 01/30/25 03:15 Temperature 97.8 F 98 F Temperature Source Oral Pulse Rate 63 Pulse Rate [Radial] 75 Respiratory Rate 16 16 Blood Pressure 142/64 H Blood Pressure [Right Arm] 161/73 H Blood Pressure Mean [Right Arm] 102 Blood Pressure Source [Right Arm] Automatic Cuff Blood Pressure Position [Right Arm] Sitting 02 Sat by Pulse Oximetry 95 Oxygen Delivery Method Room Air Room Air Lab Data Lab results reviewed: Yes I reviewed the patient's lab results. Orders (Tests/Meds): ED MEDICATIONS Discontinued Medications Generic Name Dose Route Start Last Admin Trade Name Freq PRN Reason Stop Dose Admin Acetaminophen 1,000 mg 01/30/25 01:02 01/30/25 01:05 Acetaminophen 500mg Tab PO 01/30/25 01:03 1,000 mg ONCE ONE Administration Lidocaine 1 each 01/30/25 01:02 01/30/25 01:06 Lidocaine 5% Transdermal Patch TD 01/30/25 01:03 1 each ONCE ONE Administration ORDERS Category Date Time Status Hip XR left minimum 2 views [XR hip LT 2-3V w/pelvis] Exams 01/30/25 01:02 Completed Stat XR femur LT 2V Stat Exams 01/30/25 01:02 Completed Medical Decision Narrative: 84-year-old male with history of hypertension diabetes presents for left hip pain after fall 4 days ago.. History was obtained via interactive discussion with patient, family, chart review. On arrival, patient is [afebrile, hemodynamically stable, satting appropriately, alert, oriented x4, GCS 15], moving all extremities spontaneously. Full physical exam performed and significant for left hip tenderness with hematoma, intact neurovascular exam. Bilateral lower extremity edema noted. Differential includes but is not limited to fracture, dislocation, hematoma. Patient was given Tylenol and lidocaine patch for symptomatic management and correction of underlying abnormalities. Workup initiated including radiographs of the pelvis, left hip, left femur. On re-evaluation, patient [remains afebrile, HD stable.] Imaging independently interpreted by me and significant for no evidence of acute fracture or dislocation.. See radiology read for full review of final results. CT/MRI for occult fracture was considered, but deemed unnecessary due to focal pain at hematoma site, negative x-rays, patient is still able to ambulate. Given patient history, exam and workup, patient's presentation most likely represents fall with bruising to the left hip. I recommended patient follow-up with PCP for further assessment and take Tylenol and use lidocaine patches as needed.. Procedures Risk/Benefits of Procedure(s) Were Explained: Yes Critical Care Critical Care Time Critical Care Time: No
--- OUTSIDE RECORDS SUMMARY | 2025-01-30 01:03 | XMS_ITS | Clinical Summary ---
Author Organization [facility] Address [address] [place] [address] Phone Care Team Providers Care Payroll Clerk Name Role Phone Dewayne Hong MD Primary [...] age to complete this topic Care Teams Payroll Clerk Relationship Specialty Start Date End Date Dewayne Hong MD PCP - General 04/18/01
--- OUTSIDE RECORDS SUMMARY | 2025-01-30 01:03 | XMS_ITS | Clinical Summary ---
Author Organization Healthcare Address [address] [place] [address] Care Team Providers Care Boxing Inspector Name Role Phone Onel Boudreaux MD Primary Care Provider [phone] Allergies No known active allergies Medications erythromycin [...] (2 of 2 - PCV) 11/22/2018 11/22/2017 [id number] Vaccine (1 - 20 24-25 season) 2024 [...] complete this topic Insurance MEDICARE Care Teams Boxing Inspector Relationship Specialty Start Date End Date Onel Boudreaux MD PCP - General 07/02/22
--- OUTSIDE RECORDS SUMMARY | 2025-01-30 01:03 | XMS_ITS | Encounter Summary ---
Author Organization [facility] Address [address] [place] [address] Care Team Providers Care Candy Maker Name Role Phone Onel Boudreaux MD Primary Care Provider [phone] Encounter Details Date Type Department Care Team (Late st Contact Info) Description 03/08/2023 Ophth Exam [facility] [address] [place] [address] Terra Khan MD [address] [place] [address] Social History Tobacco Use Types [...] on filedocumented in this encounter Care Teams Candy Maker Relationship Specialty Start Date End Date Onel Boudreaux MD PCP - General 07/02/22 documented as of this encounter
[2025-01-30] MEDS: ACETAMINOPHEN 500MG TAB 1000 MG PO (01:05)
[2025-01-30] MEDS: LIDOCAINE 5% TRANSDERMAL PATCH 1 EACH TD (01:06)
[2025-01-30 03:15] VITALS: BP 142/64; PULSE 63; RESP 16; TEMP 36.6; O2SAT 96
== END 2025-01-30 03:18 | disposition home or self-care (01) ==
PROVIDERS: Emergency Provider Emergency Medicine; PCP Family Medicine
DX: S70.00XA Contusion of unspecified hip, initial encounter (principal); W11.XXXA Fall on and from ladder, initial encounter
CPT/HCPCS: 73502; 73552; 99284

== ENCOUNTER 2025-04-20 12:00 | Outpatient (CLI) | payer MEDICARE, SELFPAY ==
[2025-04-20 15:05] LABS: Hematocrit 39.3 % (42.0-52.0); Hemoglobin 13.3 g/dL (14.1-18.0); Immature Granulocytes % 0.2 %; Mean Corpuscular HGB Conc 33.8 g/dL (31.8-35.4); Mean Corpuscular Hemoglobin 30.4 pg (27.0-31.2); Mean Corpuscular Volume 89.9 fl (80-94); Nucleated Red Blood Cells % 0 %; Platelet Count 165 K/mm3 (142-424); Red Blood Count 4.37 M/mm3 (4.60-6.20); Red Cell Distribution Width-SD 41.3 fL; White Blood Count 4.0 K/mm3 (4.8-10.8)
[2025-04-20 15:36] LABS: Albumin Level 3.4 g/dl (3.5-5.0); Chloride 99 mmol/L (98-107); Potassium 4.3 mmoL/L (3.5-5.1); Sodium 134 mmol/L (136-145)
[2025-04-20 15:39] LABS: Alanine Aminotransferase 30 U/L (12-78); Albumin/Globulin Ratio 1.0 (1.1-1.8); Alkaline Phosphatase 87 U/L (38-126); Anion Gap 9.3 mEq/L (5-15); Aspartate Amino Transferase 38 U/L (17-59); Bilirubin,Total 1.0 mg/dl (0.2-1.3); Blood Urea Nitrogen 13 mg/dl (9-20); Calcium 8.5 mg/dl (8.4-10.2); Carbon Dioxide 30 mmol/L (22.0-30.0); Creatinine,Serum 0.80 mg/dl (0.66-1.25); Estimated Glomerular Filt Rate 93 ml/min (>60); GFR (African American) 112 ML/MIN (>60); Globulin 3.4 g/dL (1.3-3.2); Glucose 217 mg/dl (74-100); Total Protein,Serum 6.8 g/dl (6.3-8.2)
[2025-04-20 15:46] LABS: Hemoglobin A1C 8.3 % (4.0-6.0)
[2025-04-20 16:11] LABS: Thyroid Stimulating Hormone 2.70 uIU/mL (0.465-4.68)
== END 2025-04-20 23:59 ==
LOC: LAB.DROPOF 04-23 11:49
PROVIDERS: PCP Family Medicine; Visit Provider Family Medicine
DX: E78.5 Hyperlipidemia, unspecified (principal); I10 Essential (primary) hypertension; E07.9 Disorder of thyroid, unspecified; E11.9 Type 2 dia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s
CPT/HCPCS: 80053; 82043; 82570; 83036; 84443; 85025